=== PATIENT | male | born 1980 | race Hispanic/Latino ===

== ENCOUNTER 2025-04-28 01:45 | Inpatient (IN) | payer SELFPAY ==
[2025-04-28] VITALS (38 sets, daily range): BP systolic 108–167; BP diastolic 68–97; PULSE 83–114; RESP 11–37; TEMP 96.5–99.1; O2SAT 98–100
[~2025-04-28] VITALS: Ht 170.2 cm; Wt 78.0 kg
--- NOTE | 2025-04-28 08:55 | CONS ---
[facility] CARDIOLOGY CONSULTATION REPORT Cardiology consultation note dictated for Ricardo Thurston MD Primary auto service instructor: Cherelle Carranza MD Date Patient Seen: Apr 28, 2025 Time of Visit: 08:54 Requesting Physician: Kat Wilson MD Reason for Consultation: Pericardial effusion History of Present Illness: This is a 44-year-old male with with untreated SLE and Sjogren syndrome (Positive Anti-SS-AAb, negative SS-B), and a history of low C3, C4, positive ORI, positive anti Titus antibody on 01/27/2024 who presented to [facility] [place] with a 4-6 week onset of shortness of breath and bilateral lower extremity edema. He was found to be in acute on chronic congestive heart failure. 2D Echo on 04/26/2025 revealed and LVEF of 25% with severe global hypokinesis, severe pericardial effusion with respiratory variation consistent with early tamponade physiology with RA collapse noted. TSH on 04/24/2025 was 4.9uIU/ml. Troponin of 1013 and 1062. He was subsequently transferred to [facility] [place] for possible pericardial window. Past Medical History: As per HPI and summarized below Past Surgical History: None Family History: Social History: The patient lives with his . Habits: Home Meds: Current Meds: Review of Systems: CONST: No fever, fatigue, or weight changes. EYES: No recent vision problems. ENT: No congestion, ear pain, or sore throat. C/V: Admits to bilateral lower extremity edema RESP: Admits to mild shortness of breath GI: No abdominal pain, nausea, vomiting, constipation, or diarrhea. : No incontinence or dysuria. SKIN: No rash. NEURO: No headache, focal numbness or weakness, dizziness, or seizures. PSYCH: No depression or anxiety. HEME: No abnormal bruising or bleeding. LYMPH: No swollen glands. Physical Examination: GENERAL: No acute distress. HEAD: Normal with no signs of head trauma. EYES: PERRLA, EOMI, conjunctiva and sclera normal. ENT: Hearing grossly intact, normal oropharynx. NECK: Supple without JVD. There is no tenderness, lymphadenopathy, or masses. No thyromegaly. Normal carotid upstrokes without bruits. LUNGS: Decreased breath sounds to bases bilaterally. HEART: Normal rate and rhythm. Normal S1 and S2 without murmurs, gallop or rub. VASC: Peripheral pulses +2 bilaterally. ABD: Bowel sounds normal, soft, nontender, no masses, no organomegaly. No audible bruits. : Not examined LYMPH: No lymphadenopathy noted. EXT: Bilateral lower extremities with 1 to 2+ edema edema SKIN: No rashes or lesions noted. NEURO: Awake, alert, and oriented x3. No focal sensory or strength deficits noted. Vital Signs (last 8hr) Date Time Temp Pulse Resp B/P (MAP) Pulse Ox O2 Delivery O2 Flow Rate FiO2 04/28/25 07:47 99.1 87 19 141/93 100 Nasal Cannula 2.0 Laboratory: Diagnostics / Radiology: 2D echocardiogram on 04/26/2025 Conclusion LVEF is 25%. ESTIMATED GLOBAL STRAIN: -7% Severe global hypokinesis Respiratory variation noted on Doppler interrogation consistent with early tamponade physiology Severe pericardial effusion with respiratory variation. Findings are suggestive of early tamponade physiology. EXAM: Comprehensive 2D, Doppler, and color-flow Echocardiogram Rhythm: Tachycardia Indications: PERICARDIAL EFFUSION Left Ventricle Normal LV chamber size. Left ventricular systolic function is severely decreased. The posterior wall thickness is moderately increased. The septal thickness is moderately increased. Severe global hypokinesis Indeterminate diastolic function. LVEF is 25%. ESTIMATED GLOBAL STRAIN: -7% Right Ventricle Right ventricle is small. Mild diastolic RV collapse Atria The left atrium is normal. RA Collapse noted Aortic Valve Normal trileaflet aortic valve. No aortic stenosis. Mild aortic regurgitation. Mitral Valve Mitral valve is normal in structure. Tricuspid Valve Respiratory variation noted on Doppler interrogation consistent with early tamponade physiology Trace tricuspid regurgitation. Pulmonic Valve Pulmonic valve is not well visualized. Great Vessels The aortic root is normal in size. Normal IVC diameter with increased inspiratory collapse (intermediate estimate of RA pressure = 3 mm Hg). Pericardium Severe pericardial effusion with respiratory variation. Findings are suggestive of early tamponade physiology. LARGE bilateral pleural effusions noted. 2D Dimensions IVSd 1.5 cm M: 0.6-1.2 LVEF (Teich) 25.9 % PWd 1.4 cm M: 0.6 - 1.2 LVDd 5.8 cm M: 4.2 - 5.9 LVDs 5.1 cm M: 2.5 - 4.0 Left Atrium 4.0 cm M: 3.0 - 4.0 LVOT 2.2 cm (M/F) 1.5-2.5 IVC 1.6 cm M-Mode Dimensions TAPSE 2.1 (<1.7) Aortic Valve AoV Vmax 1.0 m/s Ao Peak GR 4.2 mmHg AoV VTI 0.2 m Ao Mean GR 2.5 mmHg Pulmonary Valve PV Peak Velocity 68.07 (50-150 cm/s) at 1009 CDT Impression and Plan: -Acute decompensated HFrEF, unclear etiology of failure, suspected dilated CM, POA -Large pericardial effusion, likely secondary to untreated SLE -NSTEMI, likely type 2, demand mismatch in setting of pericardial effusion vs myocardial injury from HF exacerbation -Bilateral pleural effusions, likely secondary to CHF vs serosal involvement of rheumatological condition, POA -Status post right thoracentesis on 04/27/2025 with 950 mL removed -Untreated autoimmune condition, patient reports SLE with hematologic, mucosal and immune manifestations, Secondary Sjogren's Syndrome - 2/2 to SLE- (Positive Anti - SSA Ab) - 01/27/2024 -Bilateral inguinal lymphadenopathy, unclear cause -History of illicit drug abuse -Anemia The patient is pending an evaluation by Dr. Lewis for pericardial window today. Addendum: The patient shows no signs of tamponade clinically. I will hold off on recommendations for a pericardial window until I review his 2D echocardi ogram. Interim does have very large pleural effusion might benefit from thoracentesis. See my dictated note. ATTESTATION BY PHYSICIAN I have seen and examined the patient. I reviewed the documentation, medical decision making, and treatment plan as noted by the mid-level provider above. I agree with the findings and plan of care. RICARDO THURSTON MD, [facility] Apr 28, 2025 08:54 RICARDO THURSTON MD Apr 28, 2025 09:47
[2025-04-28 09:13] LABS: NUCLEATED RED BLOOD CELLS 0.2 % (0.0-0.19); PLATELET COUNT (AUTO) 49 K/uL (130-400); RED BLOOD CELL COUNT(AUTO) 2.90 MIL/uL (4.50-6.20); RED CELL DISTRIBUTION WIDTH 19.0 % (11.0-15.5); WHITE BLOOD COUNT (AUTO) 8.4 K/uL (4.8-10.8)
--- NOTE | 2025-04-28 09:19 | CONS ---
[facility] Cardiology Consultation Note Cardiology consultation April 28 2025 Chief complaint: This is a 44-year-old male who was transferred from [facility] for evaluation of pleural and pericardial effusions. History of present illness: The patient states that for little over two weeks he has noted progressive shortness of breath associated with pleuritic type chest pain. Symptoms worsened and he went to the emergency room at [facility]. At that time a 2D echo was reported to show a large pericardial effusion with some respiratory variation of the mitral inflow. Troponin was greater than a 1000. Ejection fraction was reduced. His EKG shows sinus rhythm with some nonspecific T-wave inversions in the anterolateral leads. No acute ST elevations are noted. The patient currently remains short of breath but denies any chest pain at this time. He was COVID and influenza negative at [facility]. Past medical history: He relates that about two years ago he received a COVID vaccination and after that developed pustules on his lower extremities more so o n the right than left. He was told at [facility] that he may have underlying lupus. The lesions on the leg of not been biopsy. There was no history of rheumatic fever heart murmur previous myocardial infarction CVAs TIAs ulcers phlebitis thyroid disease anemia hypertension diabetes dyslipidemia kidney or liver disease. Review of systems: Denies syncope PND palpitations or significant edema. No history of recent fevers sweats or chills. No hemoptysis hematemesis or melena. Allergies: No known allergies Surgical history: No prior surgeries Social history: He is a nonsmoker nondrinker Family history: There was no family history of early atherosclerotic heart disease or sudden Medications: He takes no medications at home. Physical exam: Blood pressure is 152/95. Heart rate is in the 80s and regular. There was no elevation of the jugular venous pressure no bruits or murmurs appreciable. S1 normal S2 physiologically split. Abdomen is soft. Extremities show trace edema in the right leg. He has multiple healed scars on both lower extremities from prior pustular infection. A chest x-ray: Cardiomegaly is present. There was a very large left pleural effusion covering 2/3 of the left chest. Assessment: 1. Symptomatic large left pleural effusion 2. Reported large pericardial effusion but clinically no signs of tamponade at this time. 3. Elevated troponin with reduced ejection fraction on report of prior echo suggesting possible myocarditis. 4. History of pustules on the lower extremities now healed with scars. Plan: At this point believe the patient would benefit from thoracentesis. I have discussed this with CT surgery. In addition we will recommend a 2D echocardiogram today to determine whether or not the patient would benefit from pericardial window or pericardiocentesis. We will also have an opportunity to look at his LV function. I will review results when available and make further recommendations. In the interim a TSH level ORI rheumatoid factor and sed rates has been ordered. SANDHYA CARTAGENA MD Apr 28, 2025 09:19
[2025-04-28 09:23] LABS: INR 1.0 (0.85-1.15)
[2025-04-28] MEDS ORDERED: HYDR200T75 PO (09:54)
[2025-04-28] MEDS ORDERED: EMPA10TA PO (09:54)
[2025-04-28 09:57] LABS: ASPARTATE AMINOTRANSFERASE 49.0 U/L (10-37); CREATININE 1.2 mg/dL (0.5-1.3); GLOMERULAR FILTR. RATE CALC 76.0 mL/min (>90); GLUCOSE,RANDOM 90.0 mg/dL (70-105); SODIUM SERUM 138.0 mmol/L (136-145); TOTAL PROTEIN, SERUM 7.7 g/dL (6.0-8.3); UREA NITROGEN, BLOOD 32.0 mg/dL (7-18)
[2025-04-28] MEDS ORDERED: BENZ1LOZ81 MM (09:59)
[2025-04-28] MEDS ORDERED: SACU1TAB PO (09:59)
[2025-04-28] MEDS ORDERED: SPIR25TA6 PO (09:59)
[2025-04-28] MEDS ORDERED: SILV50CR31 TP (09:59)
[2025-04-28] MEDS ORDERED: PoTASSium chl 10% ELIXIR 20MEQ 20 MEQ/15 ML UDCUP PO PRN (11:00)
--- NOTE | 2025-04-28 11:11 | HP ---
[facility] Date of Service: Apr 28, 2025 Time of Service: 10:44 HISTORY OF PRESENT ILLNESS: [ ] This is a 44-year-old male was transfer from [facility] with Severe pericardial effusion early Tamponade physiology for further workup and treatment: s/p thoracentesis left sided with 950 ml on 04/28/25. Past medical history with untreated SLE and Sjogren syndrome (Positive Anti-SS-AAb, negative SS-B), and a history of low C3, C4, positive ORI, positive anti Titus antibody on 01/27/2024 who presented to [facility] with a 4-6 week onset of shortness of breath and bilateral lower extremity edema. [facility] workup revealed acute on chronic congestive heart failure. 2D Echo on 04/26/2025 revealed and LVEF of 25% with severe global hypokinesis, severe pericardial effusion with respiratory variation consistent with early tamponade physiology with RA collapse noted. REVIEW OF SYSTEMS CONSTITUTIONAL: Denies fevers, chills, or night sweats. No unintentional weight loss reported. NEUROLOGICAL: Denies headache, amaurosis fugax, motor weakness, sensory deficit, vertigo/spinning sensation, gait abnormalities, or tremors. ENT: No hearing loss, otalgia, otorrhea, rhinitis, rhinorrhea, hoarseness, or sore throat. CARDIOVASCULAR: Denies any exertional angina, dyspnea on exertion, orthopnea, paroxysmal nocturnal dyspnea, palpitations, life-threatening arrhythmias, claudication. PULMONARY: Denies any shortness of breath, cough, phlegm/sputum, hemoptysis, pleuritic chest pain. SLEEP: Denies morning headaches, daytime somnolence or napping. Denies difficulty falling asleep, staying asleep, waking from sleep. Denies knowledge of snoring. GASTROINTESTINAL: Denies any type of dysphagia to either liquids or solids. Denies nausea, vomiting, pyrosis, early satiety, abdominal pain, diarrhea, constipation, or changes in stool consistency or caliber. Denies coffee-ground emesis, hematemesis, hematochezia, or melanotic stools. GENITOURINARY: Denies frequency, urgency, nocturia, hematuria or incontinence (Storage/Irritative symptoms.) Low urinary stream, straining to void, urinary intermittency or hesitancy, splitting of the voiding stream, terminal dribbling. ENDOCRINOLOGIC: Denies polyuria, polydipsia, polyphagia or heat/cold intolerances. HEMATOLOGIC: Denies thrombophilia/previous clots, or coagulopathy/bleeding disorders. ONCOLOGIC: Denies personal history of malignancy. DERMATOLOGIC: Denies rashes or pruritus. PSYCHIATRIC: Denies any suicidal or homicidal ideation. Denies hallucinations. PAST MEDICAL HISTORY: [ ]Homeless, PAST SURGICAL HISTORY: [ ] PAST SOCIAL HISTORY: [ ]history Illicit drug use he denies any current use of illicit drug use, or smoking and ETOH , lives with FAMILY HISTORY: [ ] Coded Allergies: No Known Drug Allergies (Unverified Allergy, Unknown, 04/28/25) PHYSICAL EXAM GENERAL APPEARANCE: The patient is awake, alert, and oriented, in no acute cardiopulmonary distress. NEUROLOGICAL: Cranial nerves II-XII grossly intact. Motor is 5/5 in bilateral upper and lower extremities proximal to distal. No sensory deficits. HEENT: Face is symmetric. Pupils are equal and reactive. Extraocular movements are intact. NECK: Supple. No JVD. No thyromegaly. No submental, submandibular, pre- /postauricular, occipital or supraclavicular lymphadenopathy. CHEST: Normal chest expansion. No Telemetry. LUNGS: Absence of any rales, rhonchi or any wheezing. CARDIOVASCULAR: Regular. S1 and S2 normal. No appreciable rubs, murmurs or gallops. ABDOMEN: Soft, nontender, and nondistended. There is no rebound, voluntary guarding, or rigidity. : Deferred. No Henriquez. EXTREMITIES: Non-edematous and not cyanotic. No clubbing. Good capillary refi ll. SKIN: No skin breakdown. Vital Sign (Last 24 Hours) 04/28/25 07:47 Temp 99.1 Pulse 87 Resp 19 B/P (MAP) 141/93 Pulse Ox 100 O2 Delivery Nasal Cannula O2 Flow Rate 2.0 LABS: Laboratory: Test 04/28/25 08:50 Range/Units White Blood Count 8.4 4.8-10.8 K/uL Red Blood Count 2.90 L 4.50-6.20 MIL/uL Hemoglobin 8.5 L 14.0-18.0 g/dL Hematocrit 28.1 L 42-54 % Mean Corpuscular Volume 96.9 79-99 fL Mean Corpuscular Hemoglobin 29.3 27.0-33.0 pg Mean Corpuscular Hemoglobin Concent 30.2 L 32.0-36.0 g/dL Red Cell Distribution Width 19.0 H 11.0-15.5 % Platelet Count 49 L 130-400 K/uL Mean Platelet Volume 7.5-10.5 fL Nucleated Red Blood Cells 0.2 H 0.0-0.19 % Platelet Morphology Comment See comments Red Blood Cell Morphology See comments Erythrocyte Sedimentation Rate 61 H 0-15 MM/HR Prothrombin Time 10.6 9.6-11.6 SEC Prothromb Time International Ratio 1.00 0.85-1.15 Activated Partial Thromboplast Time 27.8 26.3-35.5 SEC Sodium Level 138 136-145 mmol/L Potassium Level 3.3 L 3.5-5.1 mmol/L Chloride Level 104 101-111 mmol/L Carbon Dioxide Level 28 21-32 mmol/L Blood Urea Nitrogen 32 H 7-18 mg/dL Creatinine 1.2 0.5-1.3 mg/dL Glomerular Filtration Rate Calc 76 >90 mL/min Random Glucose 90 70-105 mg/dL Total Calcium 7.6 L 8.5-10.1 mg/dL Magnesium Level 1.90 1.80-2.40 mg/dL Total Bilirubin 0.4 0.2-1.0 mg/dL Aspartate Amino Transf (AST/SGOT) 49 H 10-37 U/L Alanine Aminotransferase (ALT/SGPT) 16 12-78 U/L Alkaline Phosphatase 128 50-136 U/L Troponin I High Sensitivity 969 *H 4-75 ng/L B-Type Natriuretic Peptide 769 H 0-100 pg/mL Total Protein 7.7 6.0-8.3 g/dL Albumin 1.7 L 3.5-5.0 g/dL Thyroid Stimulating Hormone (TSH) 4.55 H 0.36-3.74 uIU/mL DIAGNOSTICS / RADIOLOGY: [ ] ASSESSMENT: acute resp failure with hypoxemia POA NSTEMI POA acute on Chronic Heart failure EF 25% severe pericardial effusion with resp variation evidence by Echo POA s/p thoracentesis removal 950 ml ( 04/27/25) suspecting early tamponade physiology POA Anasarca lower extremity POA acute on Chronic anemia secondary to Lupus POA Thrombocytopenia secondary to Lupus POA electrolytes derangement: hypokalemia debilitated physical deconditioning POA severe protein calorie malnutrition POA chronic problems: autoimmune SLE Low C3 C4 Positive ORI, Anti-Titus Ab- tested 01/25/24 and secondary Sjogren syndrome Positive Anti SS-AAb Negative SS-B (01/27/24) PLAN: [ ] Admit:ICU condition: guarded Status:Full code IVF: [employer] Manager Functional, CV and critical Team hematology Imaging CT chest , Echo will follow up results Oxygen supplement to keep O2 sats above 92%, aspiration precautions head of the bed at 45 at all times. Labs cbc, cmp, mag+ will monitor H/H and Platelets: transfuse to keep hgb above 7.0 and platelet above 40,0000; will monitor for acute bleeding. Replace electrolytes as needed as per protocol to keep potassium above 4.0 magnesium 2.0. Reconciliation [facility] medications pending to be reviewed by RN nurse. PRN: MEDICATIONS Tylenol 650 mg po every 4 hrs for fever zofran 4 mg IV every 6 hrs for n/v Hydralazine 5 mg IV every 4 hrs systolic pressure > 160 bowel regiment: lactulose 20 gm PO BID PRN constipation Supportive measures: DVT ppx, GI ppx all questions answered time spent: > 35 min Supervising MD: Dr.Ellis Byers c/d This document was generated in part using voice recognition software, occasional wrong word or sound alike substitutions may have occurred due to the inherent limitations of voice recognition software. Read the chart carefully and recognize using context, where the substitutions have occurred. Although every effort was made to edit the content, loader operator/ground leader and typing errors may occur ADVANCED CARE PLANNING 1. Which of the following were discussed? Hospice Care - Yes / No Therapeutic options - Yes / No Advance Directives - Yes / No Other discussions - 2. Discussed with who? 3. Voluntary nature of this service was explained to the patient? Yes / No 4. Amount of time spent - 5. Reviewed by Physician? (if this service was performed by NPP) Yes / No ATTESTATION BY PHYSICIAN I have seen and examined the patient. I reviewed the documentation, medical decision making, and treatment plan as noted by the mid-level provider above. I agree with the findings and plan of care. PAXTON REYNOSO MD, [facility] Apr 28, 2025 11:11
[2025-04-28] MEDS: BENZOCAINE/MENTH/CETYLPYRD CL 1 EACH LOZENGE MM PRN (11:27)
--- NOTE | 2025-04-28 11:31 | EKG ---
[facility] Test Date: 2025-04-28 Test Time: 11:32:09 Pat Name: TAYO MCGINNIS Department: 2CV Room: 211 1 Gender: M Dock Coordinator: NAA : 1980 Requested By: RICARDO CARTAGENA Order Number: [id number] Reading MD: Ricardo Cartagena Measurements Intervals [place] Rate: 80 P: 15 NJ: 142 QRS: -22 QRSD: 108 T: 197 QT: 422 QTc: 486 Interpretive Statements Normal sinus rhythm Incomplete right bundle branch block T wave abnormality, consider lateral ischemia Prolonged QT No previous ECG available for comparison Electronically Signed On 04-28-2025 18:06:51 CDT by Ricardo Cartagena Please click the below link to view image of tracing.
[2025-04-28 12:57] LABS: % IRON SATURATION 17.8 % (30-44); IRON, SERUM 37.0 mcg/dL (65-175)
[2025-04-28 13:18] LABS: HIV 1&2 ANTIBODY Non-Reactive (Negative)
--- NOTE | 2025-04-28 13:49 | HMCSR ---
APPROVED REPORT EXAM: Two-dimensional and M-mode echocardiogram with Doppler and color Doppler. INDICATION ICD: I31.3 Pericardial effusion 2D Dimensions RVDd3.7 cmLVEF(%)45.8 (>50%)LVED Vol(simp.)197.0 mL IVSd0.9 (0.7-1.1cm)FS(%)23 %LVES Vol(simp.)131.0 mL LVDd5.8 (3.8-5.6cm)LA (2D)3.5 (1.6-4.0cm)LVEF(%, simp.)33 % PWd0.8 (0.7-1.1cm)Ao Root(2D)4.0 (2.0-3.7cm)LA ESV INDEX (BP)40.29 mL/m2 LVDs4.5 (2.5-4.0cm)LVOT diam2.5 (1.8-2.4cm) Deformation Strain Apical 4-11.1 % Apical 2-7.4 % Apical 3-8.6 % Global Strain-9.1 % M-Mode Dimensions EPSS1.9 cm LA (MM)3.9 (1.6-4.0cm) Ao Root(MM)4.1 (2.0-3.7cm) Aortic Valve AoV Vmax1.3 m/Leon Peak GR7.0 mmHgLVOT Vmax1.1 m/s AoV VTI0.2 mAo Mean GR4.7 mmHgLVOT VTI0.21 m HOWIE (VMAX)4.05 cm2Al P1/2T395 msAVA (VTI) 4.9 cm2 Mitral Valve MV E Vmax48.6 cm/sDECEL Lhen090 ms MV A Vmax67.2 cm/sP 1/2 T31 ms E/A ratio0.7MVA (PHT)7.0 cm2 TDI E/E' Medial6.5E/E' Lateral5.1 Medial E' Peak V7.47 cm/sLateral E' Peak V9.50 cm/s Pulmonary Valve PV Vmax1.1 m/sPV VTI0.25 mPV Mean GR3.1 mmHg PV Peak GR4.6 mmHg Left Ventricle The left ventricle is severely dilated. Global strain of -9%. There is normal left ventricular wall t hickness. LVEF is 30-35%. The left ventricular diastolic function is normal. Right Ventricle The right ventricle is normal size. Early RV and RA collapse. Atria The left atrium is moderately dilated. The right atrium size is normal. Aortic Valve The aortic valve is normal in structure. Mild to moderate aortic regurgitation. There is no aortic va lvular stenosis. Mitral Valve The mitral valve is normal in structure. Mitral regurgitation is trace. There is no mitral valve sten osis. Tricuspid Valve The tricuspid valve is normal in structure. There is no tricuspid valve regurgitation noted. Pulmonic Valve The pulmonary valve is normal in structure. There is trivial pulmonic valvular regurgitation. Great Vessels The aortic root is normal in size. The IVC is normal in size and collapses >50% with inspiration. Pericardium Large circumfrential pericardial effusion. Respiratory variation noted on the mitral inflow doppler. There is large pleural effusion. Conclusion The left ventricle is severely dilated. LVEF is 30-35%. Global strain of -9%. Early RV and RA collapse. Mild to moderate aortic regurgitation. Mitral regurgitation is trace. Large circumfrential pericardial effusion. Respiratory variation noted on the mitral inflow doppler.
[2025-04-28] MEDS ORDERED: COMPOUND IV MISC 1 EACH IVSOLN MISC PRN (15:00)
[2025-04-28 15:46] LABS: CREATININE 1.0 mg/dL (0.5-1.3); GLOMERULAR FILTR. RATE CALC 95.0 mL/min (>90); GLUCOSE,RANDOM 90.0 mg/dL (70-105); SODIUM SERUM 138.0 mmol/L (136-145); UREA NITROGEN, BLOOD 28.0 mg/dL (7-18)
--- NOTE | 2025-04-28 15:49 | NUR ---
CT ON HOLD, PT TRANSPORTED TO SURGERY.
--- NOTE | 2025-04-28 16:35 | NUR ---
OR staff at bedside for transport to OR for scheduled pericardial window
[2025-04-28] MEDS ORDERED: LIDOCAINE PF 100MG/5ML (2%) SYRINGE 5ML ONE (16:43)
[2025-04-28] MEDS ORDERED: SUCCINYLCHOLINE CHLORIDE 20 MG/ML 10 ML VIAL ONE (16:44)
[2025-04-28] MEDS ORDERED: GLYCOPYRROLATE 0.2 MG/ML 5 ML VIAL ONE (16:44)
[2025-04-28] MEDS ORDERED: ETOMIDATE 20MG VIAL ONE (16:45)
[2025-04-28] MEDS ORDERED: NEOSTIGMINE METHYLSULFATE 1MG/ML IV ONE (16:45)
[2025-04-28] MEDS ORDERED: NOREPINEPHRINE BITARTRATE 1 MG/1 ML ML IV ONE (16:46)
[2025-04-28 19:02] LABS: IMMATURE GRANULOCYTE ABSOLUTE 0.07 K/uL (0-1); NUCLEATED RED BLOOD CELLS 0.0 % (0.0-0.19); PLATELET COUNT (AUTO) 66 K/uL (130-400); RED BLOOD CELL COUNT(AUTO) 2.82 MIL/uL (4.50-6.20); RED CELL DISTRIBUTION WIDTH 18.9 % (11.0-15.5); WHITE BLOOD COUNT (AUTO) 8.7 K/uL (4.8-10.8)
[2025-04-28 19:51] LABS: LIPASE,BODY FLUID 9 U/L
[2025-04-28] MEDS: MAGNESIUM 2GM PREMIX 50ML 50 ML IV PRN (19:54)
[2025-04-28 19:56] LABS: GLUCOSE,BODY FLUID 95 mg/dL (1-40); TOTAL PROTEIN,BODY FLUID 5.5 g/dL
[2025-04-28 19:58] LABS: BODY FLUID RBC 2359 /cu. mm.; BODY FLUID WBC 121 /cu. mm.
[2025-04-28 20:06] LABS: APPEARANCE BODY FLUID SLIGHTLY CLOUDY (CLEAR); COLOR,BODY FLUID YELLOW (LT YELLOW); SPECIMENTYPE,BODY FLUID PERICARDIAL; TOTAL VOLUME,BODY FLUID 45 mL
[2025-04-28 20:08] LABS: PH, BODY FLUID 7.0
--- NOTE | 2025-04-28 20:22 | HMCIMG ---
CR CHEST 1 VIEW Clinical Details: Preoperative evaluation. Technique: A single view chest radiograph was obtained. Findings: Lungs: There is compression atelectasis of the left lung due to mass effect. No mass, infiltrate, or acute pulmonary abnormality is noted in the remaining lung parenchyma. Pleural Spaces: Gross left pleural effusion is observed. There is a small right pleural effusion. Mediastinum: The cardiomediastinal silhouette shows cardiomegaly. Bones: No acute osseous abnormality is seen. Impression: * Cardiomegaly. * Gross left pleural effusion with compression atelectasis of the left lung. * Small right pleural effusion. * No acute pulmonary parenchymal abnormality detected. /Johnson
--- NOTE | 2025-04-28 20:48 | CONS ---
[facility] CONSULTATION NOTE Date Patient Seen: Apr 28, 2025 Time of Visit: 13:00 Supervising Physician: Dillon Maldonado MD Reason for Consultation: [facility] Primary Care Physician: Tramaine Wilson MD Outpatient Specialists: [ ] Inpatient Consults: DR Matthew, DR Maldonado, DR [place], DR Carranza PROBLEM LIST: Large pericardial effusion with early signs of tamponade, POA HFrEF w/ EF 30-35% POA Suspected lupus Suspected Sjogren's disease NSTEMI POA s/p thoracentesis removal 950 ml ( 04/27/25) Anasarca lower extremity POA acute on Chronic anemia Thrombocytopenia Hypokalemia debilitated physical deconditioning POA severe protein calorie malnutrition POA Poor dentition HPI: This is a 44-year-old male who presented from [facility] for evaluation by cv surgery of pericardial circumferential effusion. We were consulted for critical care management. Per patient he has started with some shortness of breaths with progression and chest pain with the breathing. He then decided to follow up at emergency room at [facility]. 2D echo showed then a large pericardial effusion. And reduced ejection fraction. He reports he received covid vaccine 2 years ago, Pt also reports he started with lesions to lower extremities. At 1 of his visits to [facility] autoimmune workup was done and who has positive for ORI C3 and C4. Patient was told that he likely had lupus which has been untreated possible Sjogren's disease. On assessment patient is awake alert and oriented x3. He has poor dentition. Unkept. He currently denies any chest pain palpitations or shortness for breath. He is hemodynamically stable off pressors. Appears to be comfortable i n no apparent distress. , PAST MEDICAL HX: see above PAST SURGICAL HX: noncontributory SOCIAL HISTORY: No tobacco, ETOH, or illicit drug use Coded Allergies: No Known Drug Allergies (Unverified Allergy, Unknown, 04/28/25) REVIEW OF SYSTEMS: 12 point ROS reviewed with patient. Pertinent positives mentioned above. Otherwise negative. PHYSICAL EXAM: GENERAL: alert, weak, awake oriented x 3 HEENT: EOMI, Sclera non icteric, moist mucosa poor dentition NECK: Supple, no JVD, trachea midline LUNGS: Clear breath sounds bilaterally. No wheezes HEART: Regular rate and rhythm. Normal S1 and S2, without murmurs ABD: Abdomen soft, nontender. Bowel sounds present EXT: No clubbing cyanosis or edema NEURO: Alert and oriented to person, follows commands Vital Signs (last 8hr) Date Time Temp Pulse Resp B/P (MAP) Pulse Ox O2 Delivery O2 Flow Rate FiO2 04/28/25 15:26 98 Nasal Cannula* 2 28 04/28/25 14:39 97.9 84 17 128/81 100 Nasal Cannula 2.0 04/28/25 12:39 84 17 128/81 100 Nasal Cannula 2.0 04/28/25 12:35 97.9 83 21 135/86 100 Nasal Cannula 2.0 LABS: Hematology Labs: Test 04/28/25 18:51 04/28/25 08:50 Range/Units White Blood Count 8.7 4.8-10.8 K/uL Red Blood Count 2.82 L 4.50-6.20 MIL/uL Hemoglobin 8.2 L 14.0-18.0 g/dL Hematocrit 27.9 L 42-54 % Mean Corpuscular Volume 98.9 79-99 fL Mean Corpuscular Hemoglobin 29.1 27.0-33.0 pg Mean Corpuscular Hemoglobin Concent 29.4 L 32.0-36.0 g/dL Red Cell Distribution Width 18.9 H 11.0-15.5 % Platelet Count 66 #L 130-400 K/uL Mean Platelet Volume 10.9 H 7.5-10.5 fL Immature Granulocyte % (Auto) 0.8 0-1 % Neutrophils (%) (Auto) 88.0 H 40.0-77.0 % Lymphocytes (%) (Auto) 8.6 L 21.0-51.0 % Monocytes (%) (Auto) 2.4 L 3.0-13.0 % Eosinophils (%) (Auto) 0.1 0.0-8.0 % Basophils (%) (Auto) 0.1 0.0-5.0 % Neutrophils # (Auto) 7.7 1.8-7.7 K/uL Lymphocytes # (Auto) 0.8 L 1.0-4.8 K/uL Monocytes # (Auto) 0.2 0.1-1.0 K/uL Eosinophils # (Auto) 0.01 0.00-0.70 K/uL Basophils # (Auto) 0.01 0.00-0.20 K/uL Absolute Immature Granulocyte (auto 0.07 0-1 K/uL Nucleated Red Blood Cells 0.0 0.0-0.19 % White Cell Morphology Comment See comments Platelet Morphology Comment See comments Red Blood Cell Morphology See comments Erythrocyte Sedimentation Rate 61 H 0-15 MM/HR Chemistry Labs: Test 04/28/25 15:02 04/28/25 12:00 04/28/25 08:50 Range/Units Sodium Level 138 136-145 mmol/L Potassium Level 3.3 L 3.5-5.1 mmol/L Chloride Level 104 101-111 mmol/L Carbon Dioxide Level 29 21-32 mmol/L Blood Urea Nitrogen 28 H 7-18 mg/dL Creatinine 1.0 0.5-1.3 mg/dL Glomerular Filtration Rate Calc 95 >90 mL/min Random Glucose 90 70-105 mg/dL Total Calcium 7.4 L 8.5-10.1 mg/dL Magnesium Level 1.70 L 1.80-2.40 mg/dL Iron Level 37 L 65-175 mcg/dL Total Iron Binding Capacity 207 L 250-450 mcg/dL Percent Iron Saturation 17.8 L 30-44 % Troponin I High Sensitivity 817 *H 4-75 ng/L Total Bilirubin 0.4 0.2-1.0 mg/dL Aspartate Amino Transf (AST/SGOT) 49 H 10-37 U/L Alanine Aminotransferase (ALT/SGPT) 16 12-78 U/L Alkaline Phosphatase 128 50-136 U/L B-Type Natriuretic Peptide 769 H 0-100 pg/mL Total Protein 7.7 6.0-8.3 g/dL Albumin 1.7 L 3.5-5.0 g/dL Procalcitonin 0.15 0.05-0.5 ng/mL Thyroid Stimulating Hormone (TSH) 4.55 H 0.36-3.74 uIU/mL Coagulation Labs: Test 04/28/25 08:50 Range/Units Prothrombin Time 10.6 9.6-11.6 SEC Prothromb Time International Ratio 1.00 0.85-1.15 Activated Partial Thromboplast Time 27.8 26.3-35.5 SEC DIAGNOSTICS / RADIOLOGY RESULTS: [ [facility] [address] [place] [address] [id number] IMAGING REPORT Signed PATIENT: TAYO VENTURA MR#: [id number] : 1980 SEX: M AGE: 44 LOCATION: 2CV ORDER 0 [facility] REPORT#: [id number] SERVICE 7 REASON: pericardial effusion ORDERING PHYSICIAN: DANIEL MATTHEW MD PROCEDURE: ECHO CMP - ECHO 2-D COMPLETE APPROVED REPORT EXAM: Two-dimensional and M-mode echocardiogram with Doppler and color Doppler. INDICATION ICD: I31.3 Pericardial effusion 2D Dimensions RVDd 3.7 cm LVEF(%) 45.8 (>50%) LVED Vol(simp.) 197.0 mL IVSd 0.9 (0.7-1.1cm) FS(%) 23 % LVES Vol(simp.) 131.0 mL LVDd 5.8 (3.8-5.6cm) LA (2D) 3.5 (1.6-4.0cm) LVEF(%, simp.) 33 % PWd 0.8 (0.7-1.1cm) Ao Root(2D) 4.0 (2.0-3.7cm) LA ESV INDEX (BP) 40.29 mL/m2 LVDs 4.5 (2.5-4.0cm) LVOT diam 2.5 (1.8-2.4cm) Deformation Strain Apical 4 -11.1 % Apical 2 -7.4 % Apical 3 -8.6 % Global Strain -9.1 % M-Mode Dimensions EPSS 1.9 cm LA (MM) 3.9 (1.6-4.0cm) Ao Root(MM) 4.1 (2.0-3.7cm) Aortic Valve AoV Vmax 1.3 m/s Ao Peak GR 7.0 mmHg LVOT Vmax 1.1 m/s AoV VTI 0.2 m Ao Mean GR 4.7 mmHg LVOT VTI 0.21 m HOWIE (VMAX) 4.05 cm2 Al P1/2T 395 ms HOWIE (VTI) 4.9 cm2 Mitral Valve MV E Vmax 48.6 cm/s DECEL Time 171 ms MV A Vmax 67.2 cm/s P 1/2 T 31 ms E/A ratio 0.7 MVA (PHT) 7.0 cm2 TDI E/E' Medial 6.5 E/E' Lateral 5.1 Medial E' Peak V 7.47 cm/s Lateral E' Peak V 9.50 cm/s Pulmonary Valve PV Vmax 1.1 m/s PV VTI 0.25 m PV Mean GR 3.1 mmHg PV Peak GR 4.6 mmHg Left Ventricle The left ventricle is severely dilated. Global strain of -9%. There is normal left ventricular wall thickness. LVEF is 30-35%. The left ventricular diastolic function is normal. Right Ventricle The right ventricle is normal size. Early RV and RA collapse. Atria The left atrium is moderately dilated. The right atrium size is normal. Aortic Valve The aortic valve is normal in structure. Mild to moderate aortic regurgitation. There is no aortic valvular stenosis. Mitral Valve The mitral valve is normal in structure. Mitral regurgitation is trace. There is no mitral valve stenosis. Tricuspid Valve The tricuspid valve is normal in structure. There is no tricuspid valve regurgitation noted. Pulmonic Valve The pulmonary valve is normal in structure. There is trivial pulmonic valvular regurgitation. Great Vessels The aortic root is normal in size. The IVC is normal in size and collapses >50% with inspiration. Pericardium Large circumfrential pericardial effusion. Respiratory variation noted on the mitral inflow doppler. There is large pleural effusion. Conclusion The left ventricle is severely dilated. LVEF is 30-35%. Global strain of -9%. Early RV and RA collapse. Mild to moderate aortic regurgitation. Mitral regurgitation is trace. Large circumfrential pericardial effusion. Respiratory variation noted on the mitral inflow doppler. DICTATED BY: SANDHYA CARTAGENA MD DATE: 04/28/25 1021 ELECTRONICALLY SIGNED BY: SANDHYA CARTAGENA MD DATE: 04/28/25 8635 ] PLAN Continue ICU care Follow CV surgery recommendations Follow cardiology recommendations Follow Hematology recommendations Maintain O2 sats above 92% No plans for left side thoracentesis at this time. Patient is in no respiratory distress. Monitor electrolytes and replace accordingly Cardiac monitoring autoimmune work up NEURO: Minimize central acting medications as possible. Fall Precautions. Well lighted room through the day and minimize interruptions through the night to prevent acute delirium. PULMONARY: Supplemental 02 as needed Titrate Fio2 to keep Spo2 > or = 90% DuoNebs and CPT as needed IS hourly while awake for pulmonary hygiene Out of bed to chair as tolerated CARDIOVASCULAR: Follow hemodynamics. Titrate vasopressor to keep MAP >65 or systolic blood pressure >95mmHg LINES: PIV GI & NUTRITION: Continue nutritional support Aspirations precautions Prokinetic agents and laxatives as needed KIDNEYS & ELECTROLYTES: Strict monitoring of intake and output Daily weights Avoid nephrotoxic agents Monitor electrolytes and replace as needed Goal urine output of 30mL/hr or 0.5mL/kg/hr Urine output: [ ] Fluid Balance: [ ] ENDOCRINE: Maintain blood glucose between 100-180 at all times. Insulin sliding scale for blood glucose management INFECTIOUS DISEASE: Trend temperature. Doan-culture if febrile. Micro: [ ] Antibiotics: HEMATOLOGY & COAGULATION: Monitor H&H. Keep Hgb > 7 Transfuse 1 unit of PRBC for Hgb < 7 Transfuse 1 pack of platelets of platelets < 20, 000 Watch for any signs and symptoms of bleeding SKIN: Pressure ulcer prevention per facility protocol Rehab: PT/OT Prophylaxis: GI: [famotidine ] DVT: [ scd] Code Status: Full Resuscitation Disposition: [ TBD] Other: Total patient care time exceeds 35 minutes excluding all procedures. Case was discussed and seen with my supervising physician. The above plan was formulated and agreed upon. ATTESTATION BY PHYSICIAN I have evaluated the patient chart, medical records, and spoke with appropriate staff. I reviewed the documentation, medical decision making, and treatment plan as noted by the mid-level provider above. I agree with the findings and plan of care. Dillon Maldonado MD, [facility] Apr 28, 2025 20:48
[2025-04-28 21:06] LABS: BF LYMPHOCYTE 26 %; BF MACROPHAGE 11; BF MESOTHELIAL 11 %; BF NEUTROPHIL 52.0 %; BF TOTAL CELLS COUNTED 100
--- NOTE | 2025-04-28 22:56 | CONS ---
JAYDEN DIAMOND MD 04/28/25 1825: CONSULT REFERRING PHYSICIAN: DR ANGELES MATTA REASON FOR CONSULT: THROMBOCYTOPENIA, ANEMIA HISTORY HPI: 44 year old male patient with past medical history of SLE, Sjogren was transferred from [facility] to [facility] with diagnosis of Pericardial effusion and bilateral large pleural effusions . Rt side thoracentesis was done at [facility] . As per the patient he was diagnosed with SLE in December 2023 and was not taking any medications for the same . Patient presented to [place] with complaints of chest pain , generalized swelling and shortness of breath .Hematology was consulted with anemia and t hrombocytopenia . Patient is evaluated at the bedside .He reports overall improvement in presenting symptoms however he continues to experience generalized swelling. he denies chest pain this time. Labs remarkable for anemia hemoglobin 8.5, thrombocytopenia platelets 27029, elevated troponin of 817, elevated AST 49 iron 37, TSAT 17.8 GFR 9 0 and BUN 28. Echocardiogram reveals severely dilated left ventricle with an ejection fraction of 30-35%, early right ventricular collapse and a large circumferential pericardial effusion consistent with early cardiac tamponade physiology. PMH: SLE Sjogren's syndrome Anemia Thrombocytopenia PSH: Noncontributory SH: Patient denies alcohol, tobacco smoking, polysubstance abuse FH: Noncontributory ALLERGIES: Coded Allergies: No Known Drug Allergies (Unverified Allergy, Unknown, 04/28/25) CURRENT MEDS: Current Medications Medications (Trade) Dose Ordered Sig/Brittany Route PRN Reason Start Time Stop Time Status Last Admin Magnesium Sulfate 50 ml @ 0 mls/hr PROTOCOL PRN IV low mag level 04/28/25 11:00 05/28/25 10:59 04/28/25 19:54 Potassium Chloride 100 ml @ 100 mls/hr AD PRN IV POTASSIUM PROTOCOL 04/28/25 11:00 05/28/25 10:59 Potassium Chloride (KCl 10% Elixir 20meq/15ml) 20 meq AD PRN PO POTASSIUM PROTOCOL 04/28/25 11:00 05/28/25 10:59 Potassium Chloride (K-Dur/Klor-Con 20meq) 20 meq AD PRN PO POTASSIUM PROTOCOL 04/28/25 11:00 05/28/25 10:59 Potassium Chloride 100 ml @ 50 mls/hr AD PRN IV POTASSIUM PROTOCOL 04/28/25 11:00 05/28/25 10:59 04/28/25 19:54 Benzocaine (Cepacol Sore Throat Lozenge) 1 each Q4H PRN MM SORE THROAT 04/28/25 11:00 05/28/25 10:59 04/28/25 11:27 Dexamethasone Sodium Phosphate 40 mg/Sodium Chloride 50 ml @ 100 mls/hr Q24H IV 04/28/25 15:00 05/28/25 14:59 04/28/25 15:21 Famotidine (Pepcid 20mg Vial) 20 mg DAILY IV 04/29/25 09:00 05/29/25 08:59 REVIEW OF SYSTEMS CONSTITUTIONAL: FEVER; No SWEATS; CHILLS; No WEIGHT LOSS HEENT: No JAUNDICE, No SORE THROAT, No SINUS PRESSURE, No VISION CHANGES RESPIRATORY: COUGH, CHEST PAIN, SHORTNESS OF BREATH; No HEMOPTYSIS CARDIOVASCULAR: No PALPATIONS; DYSPNEA ON EXERTION; No SYNCOPE GASTROINTESTINAL: No NAUSEA, No VOMITING, No DIARRHEA, No DYSPHAGIA, No CONSTIPATION, No ABDOMINAL PAIN, No HEMATEMESIS, No HEMATOCHEZIA, No MELENA GENITOURINARY: No DYSURIA, No HEMATURIA HEMATOLOGIC/LYMPHATIC: No EASY BRUISING; CERVICAL ADENOPATHY; No AXILLARY ADENOPATHY; INGUINAL ADENOPATHY MUSCULOSKELETAL: No BONE PAIN, No MASS, No NORMAL RANGE OF MOTION NEUROLOGICAL: WEAKNESS-EXTREMETIES; No DIPLOPIA, No NUMBNESS, No TINGLING PHYSICAL EXAM VITALS: Vital Signs Date Time Temp Pulse Resp B/P (MAP) Pulse Ox O2 Delivery O2 Flow Rate FiO2 04/28/25 15:26 98 Nasal Cannula* 2 28 04/28/25 14:39 97.9 84 17 128/81 GENERAL: ALERT, ORIENTED; No APPEARS-NO ACUTE DISTRESS (MILD DISTRESS) EYES: SCLERAE ANICTERIC, PUPILS EQUAL/REACTIVE ENT/NECK: ORAL MUCOSA W/O LESIONS, OROPHARYNX IS CLEAR; No NECK SUPPLE W/O MASSES (BILATERAL CERVICAL LYMPHADENOPATHY +, LN FIRM CONSISTENCY) RESPIRATORY: No LUNGS CLEAR-AUSC/PERCUS (BREATH SOUNDS DIMINISHED ON LEFT SIDE) CARDIOVASCULAR: REGULAR RATE, REGULAR RHYTHM (DISTANT HEART SOUNDS, PERICARDIAL RUB) GASTROINTESTINAL: ABDOMEN IS SOFT, DISTENDED, PALPABLE MASSES (SPLEEN TIP PALPABLE) HEMATOLOGY/LYMPHATIC: CERVICAL ADENOPATHY; No SUPRACLAVICULR ADENOPATHY, No AXILLARY ADENOPATHY; INGUINAL ADENOPATHY MUSCULOSKELETAL: No CYANOSIS-EXTREMETIES; CLUBBING, EDEMA SKIN/BREASTS: RASH (HEALED ARTERIAL ULCER SCARS BILATERAL LOWER EXTREMITY) NEUROLOGICAL: GROSSLY INTACT IMPRESSION Systemic lupus erythematosus , acute flare with multiorgan involvement Acute large pericardial effusion Acute bilateral pleural effusion 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 Peripheral blood smear showing microcytic hypochromic red blood cells with a rouleaux phenomenon. Tear drop cells present, few schistocytes and spherocytes noted. White blood cells are increased in number you hypersegmented neutrophils noted. Platelet count is decreased however average platelet manual count between 8o k to 100k. Large platelets present. 2. This patient will benefit from IV iron, folic acid 1 mg daily and vitamin B12 1000 mcg daily. 3. Manual platelet count around 100 K-no platelet transfusion warranted at this time. We will recommend 1 unit of single donor platelet transfusion if necessary. 4. Direct Luis test positive. Patient with SLE flare with multi-system involvement. We will start the patient on high-dose dexamethasone IV 40 mg daily. 5. Generalized lymphadenopathy noted. We will request CT of abdomen and pelvis. Pending CT chest results. 6. Patient noted with bilateral lower extremity arterial ulcers which might indicate vasculitic component of underlying autoimmune disease. 7. Increased globulin fraction. Rouleaux formation noted in peripheral blood smear-we will request SPEP UPEP and free kappa lambda light chains. JACKIE HAMMER MD 04/29/250: PLAN I attest that I was physically present to evaluate the patient and I reviewed and discussed the case with the Resident and agree with the Resident's findings and plans of care as documented above with modifications. Case discussed with resident on the date stated at the beginning of note. Patient was first seen and evaluated by me during this hospitalization. JAYDEN DIAMOND MD Apr 28, 2025 22:56 JACKIE HAMMER MD Apr 29, 2025 19:20
[2025-04-29] VITALS (56 sets, daily range): BP systolic 99–136; BP diastolic 66–90; PULSE 86–107; RESP 12–24; TEMP 98–99.1; O2SAT 96–97
[2025-04-29 04:41] LABS: IMMATURE GRANULOCYTE ABSOLUTE 0.08 K/uL (0-1); NUCLEATED RED BLOOD CELLS 0.0 % (0.0-0.19); PLATELET COUNT (AUTO) 63 K/uL (130-400); RED BLOOD CELL COUNT(AUTO) 3.03 MIL/uL (4.50-6.20); RED CELL DISTRIBUTION WIDTH 18.8 % (11.0-15.5); WHITE BLOOD COUNT (AUTO) 11.9 K/uL (4.8-10.8)
[2025-04-29 04:57] LABS: ASPARTATE AMINOTRANSFERASE 39.0 U/L (10-37); CREATININE 1.2 mg/dL (0.5-1.3); GLOMERULAR FILTR. RATE CALC 76.0 mL/min (>90); GLUCOSE,RANDOM 140.0 mg/dL (70-105); SODIUM SERUM 137.0 mmol/L (136-145); TOTAL PROTEIN, SERUM 6.7 g/dL (6.0-8.3); UREA NITROGEN, BLOOD 33.0 mg/dL (7-18)
--- NOTE | 2025-04-29 06:30 | HMCIMG ---
CR CHEST 1 VIEW Clinical Details: Hypoxic respiratory failure. Technique: A single-view chest radiograph was obtained. Findings: Lungs: There is compression atelectasis of the left lung due to mass effect. Mild infiltration in right lower lobe. Pleural Spaces: Moderate left pleural effusion is observed. There is a small right pleural effusion. Mediastinum: The cardiomediastinal silhouette shows cardiomegaly. Bones: No acute osseous abnormality is seen. Impression: * Cardiomegaly. * Moderate left pleural effusion with compression atelectasis of the left lung. * Small right pleural effusion. * Compared with prior CR, the left pleural effusion is mildly reduced. /[place]
--- NOTE | 2025-04-29 07:30 | PN ---
[facility] Cardiology Progress Note CARDIOLOGY PROGRESS NOTE APRIL 29, 2025 1. Symptomatic large left pleural effusion 2. Large left pericardial effusion with pre tamponade physiology on echo status post pericardial window 3. Elevated troponin with reduced ejection fraction on report of prior echo suggesting possible myocarditis. 4. History of pustules on the lower extremities now healed with scars. 5. Thrombocytopenia The patient yesterday underwent a pericardial window. The patient's blood pressure yesterday was stable however his echo showed a large pericardial effusion with pre tamponade physiology. Ejection fraction estimated to be 30- 35%. Troponins are dropping from a 1000 it was ago to 969 here and subsequently 817. As noted EKG showed no acute ST changes and the patient denied any chest pain. He is suspected to have underlying myocarditis. Blood pressure today is 120 systolic heart rate is in the 90s. White count 11.9 hemoglobin 8.9 platelet count [id number]. Chest x-ray this morning showed improvement in his large left pleural effusion. He has passive congestive changes in the lung rasheed. He is currently off oxygen and denies any shortness of breath but x-ray shows passive congestive changes and he does have some peripheral edema. Given his low ejection fraction we will start low-dose beta seth and lisinopril at bedtime and monitor his blood pressure. SANDHYA CARTAGENA MD Apr 29, 2025 07:30
[2025-04-29] MEDS: FAMOTIDINE 20MG VIAL IV SCH (08:40)
--- NOTE | 2025-04-29 09:36 | PN ---
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 BLE ulcers Poor dentition INTERVAL HISTORY: Pt is awake alert and oriented x3. No major overnight events. Pt is s/p pericardial window overnight there was 500ml from pericardial drain. He is hemodynamically stable. Not requiring any pressors, He is at RA in no Resp distress. we will continue to follow CV surgery recommendations. Pt continues on dexamethasone 40 mg Q 24 hours IV per rehanger. REVIEW OF SYSTEMS: 12 point ROS reviewed with patient. Pertinent positives mentioned above. Ot herwise negative. PHYSICAL EXAM: GENERAL: alert, weak, awake oriented x 3 HEENT: EOMI, Sclera non icteric, moist mucosa poor dentition NECK: Supple, no JVD, trachea midline LUNGS: Clear breath sounds bilaterally. No wheezes HEART: Regular rate and rhythm. Normal S1 and S2, without murmurs , pericardial window drained ABD: Abdomen soft, nontender. Bowel sounds present EXT: No clubbing cyanosis or edema NEURO: Alert and oriented to person, follows commands Vital Signs (last 8hr) Date Time Temp Pulse Resp B/P (MAP) Pulse Ox O2 Delivery O2 Flow Rate FiO2 04/29/25 08:30 100 20 130/74 (92) 97 111/79 (90) 04/29/25 08:15 99 20 118/69 (85) 97 106/75 (85) 04/29/25 08:00 98.1 Room Air 21 04/29/25 08:00 96 Room Air* 0 21 04/29/25 08:00 99 20 130/76 (94) 96 110/83 (92) 04/29/25 07:45 94 20 128/76 (93) 98 117/83 (94) 04/29/25 07:30 90 20 123/73 (90) 97 110/81 (91) 04/29/25 07:15 91 20 121/72 (88) 98 109/78 (88) 04/29/25 07:00 92 15 123/73 (90) 96 103/73 (83) 04/29/25 06:45 93 13 110/70 (83) 98 105/75 (85) 04/29/25 06:30 92 14 115/69 (84) 97 101/76 (84) 04/29/25 06:15 93 18 124/71 (88) 97 102/76 (85) 04/29/25 06:00 94 19 119/73 (88) 97 21 99/75 (83) 04/29/25 05:45 95 21 119/73 (88) 98 102/68 (79) 04/29/25 05:30 98 22 130/76 (94) 97 114/79 (91) 04/29/25 05:15 98 24 131/77 (95) 98 109/77 (88) 04/29/25 05:00 95 22 119/73 (88) 97 21 107/76 (86) 04/29/25 04:45 95 20 120/75 (90) 96 106/78 (87) 04/29/25 04:30 94 20 122/76 (91) 97 111/80 (90) 04/29/25 04:15 97 19 126/76 (93) 99 112/78 (89) 04/29/25 04:00 99.1 97 20 119/74 (89) 96 21 111/79 (90) 04/29/25 04:00 99.1 Room Air 21 04/29/25 04:00 96 Room Air* 0 21 04/29/25 03:45 97 19 122/75 (91) 97 112/79 (90) 04/29/25 03:30 99 18 127/76 (93) 97 116/87 (97) 04/29/25 03:15 102 18 129/76 (93) 99 113/84 (94) 04/29/25 03:00 99 19 132/80 (97) 96 21 121/82 (95) 04/29/25 02:45 101 20 122/73 (89) 98 110/84 (93) 04/29/25 02:30 98 18 122/73 (89) 98 114/83 (93) 04/29/25 02:15 99 19 128/78 (95) 97 116/90 (99) 04/29/25 02:00 100 17 133/78 (96) 97 21 117/79 (92) 04/29/25 01:45 103 16 134/78 (96) 98 118/82 (94) LABS: Hematology Labs: Test 04/29/25 04:22 04/28/25 18:51 04/28/25 08:50 Range/Units White Blood Count 11.9 #H 4.8-10.8 K/uL Red Blood Count 3.03 L 4.50-6.20 MIL/uL Hemoglobin 8.9 L 14.0-18.0 g/dL Hematocrit 29.7 L 42-54 % Mean Corpuscular Volume 98.0 79-99 fL Mean Corpuscular Hemoglobin 29.4 27.0-33.0 pg Mean Corpuscular Hemoglobin Concent 30.0 L 32.0-36.0 g/dL Red Cell Distribution Width 18.8 H 11.0-15.5 % Platelet Count 63 L 130-400 K/uL Mean Platelet Volume 11.1 H 7.5-10.5 fL Immature Granulocyte % (Auto) 0.7 0-1 % Neutrophils (%) (Auto) 83.0 H 40.0-77.0 % Lymphocytes (%) (Auto) 12.5 L 21.0-51.0 % Monocytes (%) (Auto) 3.7 3.0-13.0 % Eosinophils (%) (Auto) 0.0 0.0-8.0 % Basophils (%) (Auto) 0.1 0.0-5.0 % Neutrophils # (Auto) 9.8 H 1.8-7.7 K/uL Lymphocytes # (Auto) 1.5 1.0-4.8 K/uL Monocytes # (Auto) 0.4 0.1-1.0 K/uL Eosinophils # (Auto) 0.00 0.00-0.70 K/uL Basophils # (Auto) 0.01 0.00-0.20 K/uL Absolute Immature Granulocyte (auto 0.08 0-1 K/uL Nucleated Red Blood Cells 0.0 0.0-0.19 % White Cell Morphology Comment See comments Platelet Morphology Comment See comments Red Blood Cell Morphology See comments Erythrocyte Sedimentation Rate 61 H 0-15 MM/HR Chemistry Labs: Test 04/29/25 04:22 04/28/25 12:00 04/28/25 08:50 Range/Units Sodium Level 137 136-145 mmol/L Potassium Level 4.6 3.5-5.1 mmol/L Chloride Level 104 101-111 mmol/L Carbon Dioxide Level 26 21-32 mmol/L Blood Urea Nitrogen 33 H 7-18 mg/dL Creatinine 1.2 0.5-1.3 mg/dL Glomerular Filtration Rate Calc 76 >90 mL/min Random Glucose 140 #H 70-105 mg/dL Total Calcium 7.5 L 8.5-10.1 mg/dL Magnesium Level 2.30 1.80-2.40 mg/dL Total Bilirubin 0.3 # 0.2-1.0 mg/dL Aspartate Amino Transf (AST/SGOT) 39 H 10-37 U/L Alanine Aminotransferase (ALT/SGPT) 16 12-78 U/L Alkaline Phosphatase 105 50-136 U/L Total Protein 6.7 6.0-8.3 g/dL Albumin 1.4 L 3.5-5.0 g/dL Iron Level 37 L 65-175 mcg/dL Total Iron Binding Capacity 207 L 250-450 mcg/dL Percent Iron Saturation 17.8 L 30-44 % Troponin I High Sensitivity 817 *H 4-75 ng/L B-Type Natriuretic Peptide 769 H 0-100 pg/mL Procalcitonin 0.15 0.05-0.5 ng/mL Thyroid Stimulating Hormone (TSH) 4.55 H 0.36-3.74 uIU/mL Coagulation Labs: Test 04/28/25 08:50 Range/Units Prothrombin Time 10.6 9.6-11.6 SEC Prothromb Time International Ratio 1.00 0.85-1.15 Activated Partial Thromboplast Time 27.8 26.3-35.5 SEC DIAGNOSTICS / RADIOLOGY RESULTS: [ ][facility] [address] [address] IMAGING REPORT Signed PATIENT: TAYO VENTURA MR#: [id number] : 1980 SEX: M AGE: 44 LOCATION: 2CV ORDER [id number] STATUS: ADM IN REPORT#: [id number] SERVICE 1700 REASON: SLE flare up , splenomegaly , generalized lymphadenopathy ORDERING PHYSICIAN: JAYDEN DIAMOND MD PROCEDURE: ABD PEL WO - CT ABDOMEN/PELVIS W/O CONTRAST EXAM: CT Abdomen and Pelvis Without IV contrast CLINICAL HISTORY: SLE flare up , splenomegaly , generalized lymphadenopathy TECHNIQUE: Axial computed tomography images of the abdomen and pelvis without intravenous contrast. CONTRAST: No IV contrast. COMPARISON: None provided. FINDINGS: LUNG BASES: Bilateral moderate to gross pleural effusion with collapse of the lower lobes with minimal adjacent consolidation. Drainage tube noted on right side LIVER: Measures 17 cms with no focal lesion. GALLBLADDER AND BILE DUCTS: Not visualized. PANCREAS: Unremarkable. SPLEEN: Measures 12.8 cms with no focal lesions. ADRENAL GLANDS: Unremarkable. KIDNEYS, URETERS, AND BLADDER: The kidneys appear within normal limits. There is no hydronephrosis or hydroureter. No urinary calculi are seen. Perinephric fat stranding is evident bilaterally. STOMACH AND BOWEL: Unremarkable appearance of the stomach and bowel. No evidence of bowel obstruction. No evidence suggesting enteritis or colitis. APPENDIX: No evidence of acute appendicitis on CT examination. PERITONEUM: Moderate ascites. No free air. Diffuse abdominal wall edema evident. LYMPH NODES: No lymphadenopathy is evident. REPRODUCTIVE: Unremarkable as visualized. VASCULATURE: No evidence of abdominal aortic aneurysm. BONES: No aggressive appearing osseous lesion. No acute osseous pathology evident. 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 IMPRESSION: Moderate ascites Bilateral moderate to gross pleural effusion. Hepatosplenomegaly. 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 /[place] DICTATED BY: DEION LARSEN MD DATE: 04/29/252020 ELECTRONICALLY SIGNED BY: DEION LARSEN MD DATE: 04/29/252020 PLAN Continue ICU care Follow CV surgery recommendations Follow cardiology recommendations Follow Hematology recommendations follow pericardial drain output Maintain O2 sats above 92% start diuresing Lasix 20mg iv q 12h No plans for left side thoracentesis at this time. Patient is in no respiratory distress. Monitor electrolytes and replace accordingly Cardiac monitoring Decadron per hematology recs NEURO: Minimize central acting medications as possible. Fall Precautions. Well lighted room through the day and minimize interruptions through the night to prevent acute delirium. PULMONARY: Supplemental 02 as needed Titrate Fio2 to keep Spo2 > or = 90% DuoNebs and CPT as needed IS hourly while awake for pulmonary hygiene Out of bed to chair as tolerated CARDIOVASCULAR: Follow hemodynamics. Titrate vasopressor to keep MAP >65 or systolic blood pressure >95mmHg LINES: PIV GI & NUTRITION: Continue nutritional support Aspirations precautions Prokinetic agents and laxatives as needed KIDNEYS & ELECTROLYTES: Strict monitoring of intake and output Daily weights Avoid nephrotoxic agents Monitor electrolytes and replace as needed Goal urine output of 30mL/hr or 0.5mL/kg/hr Urine output: [ ] Fluid Balance: [ ] ENDOCRINE: Maintain blood glucose between 100-180 at all times. Insulin sliding scale for blood glucose management INFECTIOUS DISEASE: Trend temperature. Doan-culture if febrile. Micro: [ ] pericardial fluid- Antibiotics: none HEMATOLOGY & COAGULATION: Monitor H&H. Keep Hgb > 7 Transfuse 1 unit of PRBC for Hgb < 7 Transfuse 1 pack of platelets of platelets < 20, 000 Watch for any signs and symptoms of bleeding SKIN: Pressure ulcer prevention per facility protocol Rehab: PT/OT Prophylaxis: GI: [famotidine ] DVT: [ scd] Code Status: Full Resuscitation Disposition: [ TBD] Other: Total patient care time exceeds 35 minutes excluding all procedures. Case was discussed and seen with my supervising physician. The above plan was formulated and agreed upon. ATTESTATION BY PHYSICIAN I have evaluated the patient chart, medical records, and spoke with appropriate staff. I reviewed the documentation, medical decision making, and treatment plan as noted by the mid-level provider above. I agree with the findings and plan of care. Dillon Maldonado MD, NELLY J AGACN Apr 29, 2025 09:36
--- NOTE | 2025-04-29 09:41 | PN ---
[facility] PROGRESS NOTE Date of Service: Apr 29, 2025 Time of Service: 09:35 SUBJECTIVE: [ ] This is a 44-year-old male was transfer from [facility] with Severe pericardial effusion early Tamponade physiology for further workup and treatment: s/p thoracentesis left sided with 950 ml on 04/28/25. Past medical history with untreated SLE and Sjogren syndrome (Positive Anti-SS-AAb, negative SS-B), and a history of low C3, C4, positive ORI, positive anti Titus antibody on 01/27/2024 who presented to [facility] with a 4-6 week onset of shortness of breath and bilateral lower extremity edema. [facility] workup revealed acute on chronic congestive heart failure. 2D Echo on 04/26/2025 revealed and LVEF of 25% with severe global hypokinesis, severe pericardial effusion with respiratory variation consistent with early tamponade physiology with RA collapse noted. 04/29/25 patient was seen earlier patient lying in bed appears chronically ill continue to experience units generalized swelling however he denied chest pain at this time. Primary nurse reports no events overnight. Waiting for CV recommendations. REVIEW OF SYSTEMS CONSTITUTIONAL: Denies fevers, chills, or night sweats. No unintentional weight loss reported. NEUROLOGICAL: Denies headache, amaurosis fugax, motor weakness, sensory deficit, vertigo/spinning sensation, gait abnormalities, or tremors. ENT: No hearing loss, otalgia, otorrhea, rhinitis, rhinorrhea, hoarseness, or sore throat. CARDIOVASCULAR: Denies any exertional angina, dyspnea on exertion, orthopnea, paroxysmal nocturnal dyspnea, palpitations, life-threatening arrhythmias, claudication. PULMONARY: Denies any shortness of breath, cough, phlegm/sputum, hemoptysis, pleuritic chest pain. SLEEP: Denies morning headaches, daytime somnolence or napping. Denies difficulty falling asleep, staying asleep, waking from sleep. Denies knowledge of snoring. GASTROINTESTINAL: Denies any type of dysphagia to either liquids or solids. Denies nausea, vomiting, pyrosis, early satiety, abdominal pain, diarrhea, constipation, or changes in stool consistency or caliber. Denies coffee-ground emesis, hematemesis, hematochezia, or melanotic stools. GENITOURINARY: Denies frequency, urgency, nocturia, hematuria or incontinence (Storage/Irritative symptoms.) Low urinary stream, straining to void, urinary intermittency or hesitancy, splitting of the voiding stream, terminal dribbling. ENDOCRINOLOGIC: Denies polyuria, polydipsia, polyphagia or heat/cold intolerances. HEMATOLOGIC: Denies thrombophilia/previous clots, or coagulopathy/bleeding disorders. ONCOLOGIC: Denies personal history of malignancy. DERMATOLOGIC: Denies rashes or pruritus. PSYCHIATRIC: Denies any suicidal or homicidal ideation. Denies hallucinations. PHYSICAL EXAM GENERAL APPEARANCE: The patient is awake, alert, and oriented, in no acute cardiopulmonary distress. NEUROLOGICAL: Cranial nerves II-XII grossly intact. Motor is 5/5 in bilateral upper and lower extremities proximal to distal. No sensory deficits. HEENT: Face is symmetric. Pupils are equal and reactive. Extraocular movements are intact. NECK: Supple. No JVD. No thyromegaly. No submental, submandibular, pre- /postauricular, occipital or supraclavicular lymphadenopathy. CHEST: Normal chest expansion. No Telemetry. LUNGS: Absence of any rales, rhonchi or any wheezing. CARDIOVASCULAR: Regular. S1 and S2 normal. No appreciable rubs, murmurs or gallops. ABDOMEN: Soft, nontender, and nondistended. There is no rebound, voluntary guarding, or rigidity. : Deferred. No Hneriquez. EXTREMITIES: Non-edematous and not cyanotic. No clubbing. Good capillary refill. SKIN: No skin breakdown. Vital Signs (last 8hr) Date Time Temp Pulse Resp B/P (MAP) Pulse Ox O2 Delivery O2 Flow Rate FiO2 04/29/25 08:30 100 20 130/74 (92) 97 111/79 (90) 04/29/25 08:15 99 20 118/69 (85) 97 106/75 (85) 04/29/25 08:00 98.1 Room Air 21 04/29/25 08:00 96 Room Air* 0 21 04/29/25 08:00 99 20 130/76 (94) 96 110/83 (92) 04/29/25 07:45 94 20 128/76 (93) 98 117/83 (94) 04/29/25 07:30 90 20 123/73 (90) 97 110/81 (91) 04/29/25 07:15 91 20 121/72 (88) 98 109/78 (88) 04/29/25 07:00 92 15 123/73 (90) 96 103/73 (83) 04/29/25 06:45 93 13 110/70 (83) 98 105/75 (85) 04/29/25 06:30 92 14 115/69 (84) 97 101/76 (84) 04/29/25 06:15 93 18 124/71 (88) 97 102/76 (85) 04/29/25 06:00 94 19 119/73 (88) 97 21 99/75 (83) 04/29/25 05:45 95 21 119/73 (88) 98 102/68 (79) 04/29/25 05:30 98 22 130/76 (94) 97 114/79 (91) 04/29/25 05:15 98 24 131/77 (95) 98 109/77 (88) 04/29/25 05:00 95 22 119/73 (88) 97 21 107/76 (86) 04/29/25 04:45 95 20 120/75 (90) 96 106/78 (87) 04/29/25 04:30 94 20 122/76 (91) 97 111/80 (90) 04/29/25 04:15 97 19 126/76 (93) 99 112/78 (89) 04/29/25 04:00 99.1 97 20 119/74 (89) 96 21 111/79 (90) 04/29/25 04:00 99.1 Room Air 21 04/29/25 04:00 96 Room Air* 0 21 04/29/25 03:45 97 19 122/75 (91) 97 112/79 (90) 04/29/25 03:30 99 18 127/76 (93) 97 116/87 (97) 04/29/25 03:15 102 18 129/76 (93) 99 113/84 (94) 04/29/25 03:00 99 19 132/80 (97) 96 21 121/82 (95) 04/29/25 02:45 101 20 122/73 (89) 98 110/84 (93) 04/29/25 02:30 98 18 122/73 (89) 98 114/83 (93) 04/29/25 02:15 99 19 128/78 (95) 97 116/90 (99) 04/29/25 02:00 100 17 133/78 (96) 97 21 117/79 (92) 04/29/25 01:45 103 16 134/78 (96) 98 118/82 (94) LABS: Laboratory: Test 04/29/25 04:22 04/28/25 18:51 04/28/25 17:31 04/28/25 12:00 Range/Units White Blood Count 11.9 #H 4.8-10.8 K/uL Red Blood Count 3.03 L 4.50-6.20 MIL/uL Hemoglobin 8.9 L 14.0-18.0 g/dL Hematocrit 29.7 L 42-54 % Mean Corpuscular Volume 98.0 79-99 fL Mean Corpuscular Hemoglobin 29.4 27.0-33.0 pg Mean Corpuscular Hemoglobin Concent 30.0 L 32.0-36.0 g/dL Red Cell Distribution Width 18.8 H 11.0-15.5 % Platelet Count 63 L 130-400 K/uL Mean Platelet Volume 11.1 H 7.5-10.5 fL Immature Granulocyte % (Auto) 0.7 0-1 % Neutrophils (%) (Auto) 83.0 H 40.0-77.0 % Lymphocytes (%) (Auto) 12.5 L 21.0-51.0 % Monocytes (%) (Auto) 3.7 3.0-13.0 % Eosinophils (%) (Auto) 0.0 0.0-8.0 % Basophils (%) (Auto) 0.1 0.0-5.0 % Neutrophils # (Auto) 9.8 H 1.8-7.7 K/uL Lymphocytes # (Auto) 1.5 1.0-4.8 K/uL Monocytes # (Auto) 0.4 0.1-1.0 K/uL Eosinophils # (Auto) 0.00 0.00-0.70 K/uL Basophils # (Auto) 0.01 0.00-0.20 K/uL Absolute Immature Granulocyte (auto 0.08 0-1 K/uL Nucleated Red Blood Cells 0.0 0.0-0.19 % Sodium Level 137 136-145 mmol/L Potassium Level 4.6 3.5-5.1 mmol/L Chloride Level 104 101-111 mmol/L Carbon Dioxide Level 26 21-32 mmol/L Blood Urea Nitrogen 33 H 7-18 mg/dL Creatinine 1.2 0.5-1.3 mg/dL Glomerular Filtration Rate Calc 76 >90 mL/min Random Glucose 140 #H 70-105 mg/dL Total Calcium 7.5 L 8.5-10.1 mg/dL Magnesium Level 2.30 1.80-2.40 mg/dL Total Bilirubin 0.3 # 0.2-1.0 mg/dL Aspartate Amino Transf (AST/SGOT) 39 H 10-37 U/L Alanine Aminotransferase (ALT/SGPT) 16 12-78 U/L Alkaline Phosphatase 105 50-136 U/L Total Protein 6.7 6.0-8.3 g/dL Albumin 1.4 L 3.5-5.0 g/dL White Cell Morphology Comment See comments Body Fluid Source PERICARDIAL Body Fluid Volume 45 mL Body Fluid Color YELLOW LT YELLOW Body Fluid pH 7.0 Body Fluid Supernatant Appearance SLIGHTLY CLOUDY CLEAR Body Fluid WBC 121 /cu. mm. Body Fluid RBC 2359 /cu. mm. Body Fluid Neutrophils 52.0 % Body Fluid Lymphocytes 26 % Body Fluid Macrophages (%) 11 Body Fluid Mesothelial Cells (%) 11 % Body Fluid Glucose 95 H 1-40 mg/dL Body Fluid Total Protein 5.5 g/dL Body Fluid Lactate Dehydrogenase 343 U/L Body Fluid Amylase 36 U/L Body Fluid Lipase 9 U/L Iron Level 37 L 65-175 mcg/dL Total Iron Binding Capacity 207 L 250-450 mcg/dL Percent Iron Saturation 17.8 L 30-44 % Troponin I High Sensitivity 817 *H 4-75 ng/L Rheumatoid Factor 12.2 <14.0 IU/mL HIV (1&2) Antibody Non-Reactive Negative HIV P24 Antigen, Qualitative Non-Reactive Negative Test 04/28/25 08:50 Range/Units Platelet Morphology Comment See comments Red Blood Cell Morphology See comments Erythrocyte Sedimentation Rate 61 H 0-15 MM/HR Prothrombin Time 10.6 9.6-11.6 SEC Prothromb Time International Ratio 1.00 0.85-1.15 Activated Partial Thromboplast Time 27.8 26.3-35.5 SEC B-Type Natriuretic Peptide 769 H 0-100 pg/mL Procalcitonin 0.15 0.05-0.5 ng/mL Thyroid Stimulating Hormone (TSH) 4.55 H 0.36-3.74 uIU/mL Current Medications Medications (Trade) Dose Ordered Sig/Brittany Route PRN Reason Start Time Stop Time Status Last Admin Dose Admin Benzocaine (Cepacol Sore Throat Lozenge) 1 each Q4H PRN MM SORE THROAT 04/28/25 11:00 05/28/25 10:59 04/29/25 06:06 1 EACH Dexamethasone Sodium Phosphate (dexaMETHasone 4MG/ML 1ML VIAL) 40 mg Q24H IV 04/28/25 14:30 04/28/25 14:42 DC Dexamethasone Sodium Phosphate 40 mg/Sodium Chloride 50 ml @ 100 mls/hr Q24H IV 04/28/25 15:00 05/28/25 14:59 04/28/25 15:21 100 MLS/HR Famotidine (Pepcid 20mg Vial) 20 mg DAILY IV 04/29/25 09:00 05/29/25 08:59 04/29/25 08:40 20 MG Lisinopril (Prinivil 2.5mg) 2.5 mg DAILY PO 04/29/25 09:00 05/29/25 08:59 Magnesium Sulfate 50 ml @ 0 mls/hr PROTOCOL PRN IV low mag level 04/28/25 11:00 05/28/25 10:59 04/28/25 19:54 25 MLS/HR Metoprolol Succinate (TopROL XL) 12.5 mg DAILY PO 04/29/25 09:00 05/29/25 08:59 04/29/25 08:41 12.5 MG Potassium Chloride 100 ml @ 50 mls/hr AD PRN IV POTASSIUM PROTOCOL 04/28/25 11:00 04/29/25 07:35 DC 04/28/25 23:26 50 MLS/HR Potassium Chloride 100 ml @ 100 mls/hr AD PRN IV POTASSIUM PROTOCOL 04/28/25 11:00 05/28/25 10:59 Potassium Chloride (K-Dur/Klor-Con 20meq) 20 meq AD PRN PO POTASSIUM PROTOCOL 04/28/25 11:00 05/28/25 10:59 Potassium Chloride (KCl 10% Elixir 20meq/15ml) 20 meq AD PRN PO POTASSIUM PROTOCOL 04/28/25 11:00 05/28/25 10:59 DIAGNOSTICS / RADIOLOGY: [ ] ASSESSMENT: acute resp failure with hypoxemia POA NSTEMI POA acute on Chronic Heart failure EF 25% severe pericardial effusion with resp variation evidence by Echo POA s/p thoracentesis removal 950 ml ( 04/27/25) suspecting early tamponade physiology POA Anasarca lower extremity POA acute on Chronic anemia secondary to Lupus POA Thrombocytopenia secondary to Lupus POA electrolytes derangement: hypokalemia debilitated physical deconditioning POA severe protein calorie malnutrition POA chronic problems: autoimmune SLE Low C3 C4 Positive ORI, Anti-Ttius Ab- tested 01/25/24 and jami garcia Sjogren syndrome Positive Anti SS-AAb Negative SS-B (01/27/24) bilateral lower extremity arterial ulcers PLAN: [ ] Admit:ICU condition: guarded Status:Full code IVF: [employer] Supervisor Stone, CV and critical Team hematology Imaging CT chest , Echo noted Oxygen supplement to keep O2 sats above 92%, aspiration precautions head of the bed at [address] reyes started HIGH DOSE DEXAMETHSONE IV 40 MG DAILY Labs cbc, cmp, mag+ on going surveillance will monitor H/H and Platelets: transfuse to keep hgb above 7.0 and platelet above 40,0000; will monitor for acute bleeding. Oral supplements: IV iron, folic acid 1 mg and vitamin B12 1000 mcg daily Replace electrolytes as needed as per protocol to keep potassium above 4.0 magnesium 2.0. decubitus precaution: reposition every 2 hrs aggressive off loading: wound care consulted will follow recommendations. Supportive measures: DVT ppx, GI ppx all questions answered time spent: > 35 min Supervising MD: Dr.Ellis Byers c/d This document was generated in part using voice recognition software, occasional wrong word or sound alike substitutions may have occurred due to the inherent limitations of voice recognition software. Read the chart carefully and recognize using context, where the substitutions have occurred. Although every effort was made to edit the content, passenger car inspector and typing errors may occur ATTESTATION BY PHYSICIAN I have seen and examined the patient. I reviewed the documentation, medical decision making, and treatment plan as noted by the mid-level provider above. I agree with the findings and plan of care. PAXTON REYNOSO MD, [facility] Apr 29, 2025 09:41
[2025-04-29] MEDS: LISINOPRIL 2.5 MG TABLET PO SCH (10:21)
[2025-04-29 11:13] LABS: ANTI-SCLERODERMA 70 0.3 AI (0.0-0.9)
--- NOTE | 2025-04-29 13:07 | PN ---
44 year old male patient with past medical history of SLE, Sjogren was transferred from [facility] to [facility] with diagnosis of Pericardial effusion and bilateral large pleural effusions . Rt side thoracentesis was done at [facility] . As per the patient he was diagnosed with SLE in December 2023 and was not taking any medications for the same . Patient presented to [place] with complaints of chest pain , generalized swelling and shortness of breath .Hematology was consulted with anemia and thrombocytopenia . Patient is evaluated at the bedside .He reports overall improvement in presenting symptoms however he continues to experience generalized swelling. he denies chest pain this time. Labs remarkable for anemia hemoglobin 8.5, thrombocytopenia platelets [id number], elevated troponin of 817, elevated AST 49 iron 37, TSAT 17.8 GFR 9 0 and BUN 28. Echocardiogram reveals severely dilated left ventricle with an ejection fraction of 30-35%, early right ventricular collapse and a large circumferential pericardial effusion consistent with early cardiac tamponade physiology. Patient was started on dexamethasone 40 mg IV. Patient also was found to have iron deficiency anemia as the patient was started on IV iron. It seems the patient is doing very well at this time. His energy improved. PHYSICAL EXAM VITALS: Vital Signs Date Time Temp Pulse Resp B/P (MAP) Pulse Ox O2 Delivery O2 Flow Rate FiO2 04/28/25 15:26 98 Nasal Cannula* 2 28 04/28/25 14:39 97.9 84 17 128/81 GENERAL: ALERT, ORIENTED; No APPEARS-NO ACUTE DISTRESS (MILD DISTRESS) EYES: SCLERAE ANICTERIC, PUPILS EQUAL/REACTIVE ENT/NECK: ORAL MUCOSA W/O LESIONS, OROPHARYNX IS CLEAR; No NECK SUPPLE W/O MASSES (BILATERAL CERVICAL LYMPHADENOPATHY +, LN FIRM CONSISTENCY) RESPIRATORY: No LUNGS CLEAR-AUSC/PERCUS (BREATH SOUNDS DIMINISHED ON LEFT SIDE) CARDIOVASCULAR: REGULAR RATE, REGULAR RHYTHM (DISTANT HEART SOUNDS, PERICARDIAL RUB) GASTROINTESTINAL: ABDOMEN IS SOFT, DISTENDED, PALPABLE MASSES (SPLEEN TIP PALPABLE) HEMATOLOGY/LYMPHATIC: CERVICAL ADENOPATHY; No SUPRACLAVICULR ADENOPATHY, No AXILLARY ADENOPATHY; INGUINAL ADENOPATHY MUSCULOSKELETAL: No CYANOSIS-EXTREMETIES; CLUBBING, EDEMA SKIN/BREASTS: RASH (HEALED ARTERIAL ULCER SCARS BILATERAL LOWER EXTREMITY) NEUROLOGICAL: GROSSLY INTACT IMPRESSION Systemic lupus erythematosus , acute flare with multiorgan involvement Acute large pericardial effusion Acute bilateral pleural effusion 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 This patient to continue dexamethasone 40 mg daily while in the hospital. Then this patient will need tapering dose of prednisone to start 50 mg daily for 1 week then taper down 10 mg every week until stop. 2. This patient will benefit from IV iron, folic acid 1 mg daily and vitamin B12 1000 mcg daily. 3. Manual platelet count around 100 K-no platelet transfusion warranted at this time. We will recommend 1 unit of single donor platelet transfusion if necessary. 4. Generalized lymphadenopathy noted. We will request CT of abdomen and pelvis. Pending CT chest results. 5. Patient noted with bilateral lower extremity arterial ulcers which might indicate vasculitic component of underlying autoimmune disease 6. 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 We will ask for SPEP, UPEP and free light chain. If there is monoclonal protein we will do a bone marrow biopsy. Vitals/Labs Vital Signs Date Time Temp Pulse Resp B/P (MAP) Pulse Ox O2 Delivery O2 Flow Rate FiO2 04/29/25 12:00 98.1 94 18 133/75 97 Room Air 21 04/29/25 08:00 0 Laboratory Tests 04/28/25 15:02 04/28/25 18:51 04/29/25 04:22 Microbiology Date/Time Source Procedure Growth Status 04/28/25 17:31 Body Fluids Pericardial Fluid ANKUSH Preparation - Final Complete Medications Current Medications Magnesium Sulfate 50 ml @ 0 mls/hr PROTOCOL PRN IV Last administered on 04/28/25at 19:54; Start 04/28/25 at 11:00; Stop 05/28/25 at 10:59 Potassium Chloride 100 ml @ 100 mls/hr AD PRN IV; Start 04/28/25 at 11:00; Stop 05/28/25 at 10:59 Potassium Chloride 20 meq AD PRN PO; Start 04/28/25 at 11:00; Stop 05/28/25 at 10:59 Potassium Chloride 20 meq AD PRN PO; Start 04/28/25 at 11:00; Stop 05/28/25 at 10:59 Potassium Chloride 100 ml @ 50 mls/hr AD PRN IV Last administered on 04/28/25at 23:26; Start 04/28/25 at 11:00; Stop 04/29/25 at 07:35; Status DC Benzocaine 1 each Q4H PRN MM Last administered on 04/29/25at 06:06; Start 04/28/25 at 11:00; Stop 05/28/25 at 10:59 Dexamethasone Sodium Phosphate 40 mg Q24H IV; Start 04/28/25 at 14:30; Stop 04/28/25 at 14:42; Status DC Dexamethasone Sodium Phosphate 40 mg/Sodium Chloride 50 ml @ 100 mls/hr Q24H IV Last administered on 04/28/25at 15:21; Start 04/28/25 at 15:00; Stop 05/28/25 at 14:59 Cefazolin Sodium 1 gm STK-MED ONCE .ROUTE; Start 04/28/25 at 16:18; Stop 04/28/25 at 16:18; Status DC Dexamethasone Sodium Phosphate 10 mg STK-MED ONCE .ROUTE; Start 04/28/25 at 16:43; Stop 04/28/25 at 16:43; Status DC Ondansetron HCl 4 mg STK-MED ONCE .ROUTE; Start 04/28/25 at 16:43; Stop 04/28/25 at 16:43; Status DC Lidocaine HCl 100 mg STK-MED ONCE .ROUTE; Start 04/28/25 at 16:43; Stop 04/28/25 at 16:43; Status DC Succinylcholine Chloride 200 mg STK-MED ONCE .ROUTE; Start 04/28/25 at 16:44; Stop 04/28/25 at 16:44; Status DC Glycopyrrolate 1 mg STK-MED ONCE .ROUTE; Start 04/28/25 at 16:44; Stop 04/28/25 at 16:44; Status DC Fentanyl Citrate 100 mcg STK-MED ONCE .ROUTE; Start 04/28/25 at 16:44; Stop 04/28/25 at 16:45; Status DC Propofol 200 mg STK-MED ONCE IV; Start 04/28/25 at 16:45; Stop 04/28/25 at 16:45; Status DC Neostigmine Methylsulfate 10 mg STK-MED ONCE IV; Start 04/28/25 at 16:45; Stop 04/28/25 at 16:45; Status DC Rocuronium [place] 50 mg STK-MED ONCE .ROUTE; Start 04/28/25 at 16:45; Stop 04/28/25 at 16:45; Status DC Etomidate 20 mg STK-MED ONCE .ROUTE; Start 04/28/25 at 16:45; Stop 04/28/25 at 16:45; Status DC Norepinephrine Bitartrate 4 mg STK-MED ONCE IV; Start 04/28/25 at 16:46; Stop 04/28/25 at 16:46; Status DC Epinephrine HCl 1 mg STK-MED ONCE .ROUTE; Start 04/28/25 at 16:46; Stop 04/28/25 at 16:46; Status DC Cefazolin Sodium 2 gm STK-MED ONCE IVPB Last administered on 04/28/25at 17:04; Start 04/28/25 at 17:04; Stop 04/28/25 at 18:07; Status DC Famotidine 20 mg DAILY IV Last administered on 04/29/25at 08:40; Start 04/29/25 at 09:00; Stop 05/29/25 at 08:59 Metoprolol Succinate 12.5 mg DAILY PO Last administered on 04/29/25at 08:41; Start 04/29/25 at 09:00; Stop 05/29/25 at 08:59 Lisinopril 2.5 mg DAILY PO Last administered on 04/29/25at 10:21; Start 04/29/25 at 09:00; Stop 05/29/25 at 08:59 Iron Sucrose 200 mg DAILY ONCE IV; Start 04/30/25 at 09:00; Stop 04/30/25 at 09:01 JACKIE HAMMER MD Apr 29, 2025 13:07
--- NOTE | 2025-04-29 14:09 | OP ---
DATE OF PROCEDURE: 04/28/2025 TIME: 5:00 p.m. PREOPERATIVE DIAGNOSIS: Pericardial effusion. POSTOPERATIVE DIAGNOSIS: Pericardial effusion. PROCEDURES PERFORMED: 1. Pericardial window. 2. Pericardial tissue biopsy. SURGEON: Cosme Lewis MD, SHIP MATE: Jory Giron. DESCRIPTION OF PROCEDURE: Following anesthesia induction without any complication and appropriate preparation of the operative field, a 5 cm incision was made over the xiphoid process. The xiphoid process was then removed. The pericardium was identified. A longitudinal incision was made with a 15 blade. A large amount of pericardial fluid was evacuated. Majority of it was serous. After that, a piece of pericardium was cut and sent to Pathology. Subsequently, we placed a [place] drain into the pericardial sac and exteriorized it through the skin. After that, the wound was closed with 2-0 Vicryl and 4-0 Monocryl suture. I was present throughout the entire operation. The patient tolerated the operation well and transferred to the Intensive Care Unit in stable condition. TID: [id number] RECEIPT: [id number]
--- NOTE | 2025-04-29 14:11 | HMCIMG ---
EXAM: CR Chest, single view. CLINICAL HISTORY: Hypoxic respiratory failure. COMPARISON: Prior chest radiograph dated April 28, 2025. FINDINGS: Mild cardiomegaly with bilateral pulmonary congestion. Mild bilateral pleural effusion, left intercostal drainage catheter in the right pleural cavity. No acute osseous abnormality. IMPRESSION: Mild cardiomegaly with bilateral pulmonary congestion. Mild bilateral pleural effusion, left more than right with adjacent lung atelectasis. No evidence of pneumothorax. Intercostal drainage catheter in the right pleural cavity. Compared to the prior study, redemonstrated changes of congestive cardiac failure. There is no significant interval change. /[place]
--- NOTE | 2025-04-29 15:15 | NUR ---
DCP:HOME Pt states that he currently lives at home with his Traci Donohue [phone]. Pt denies having any DME, home health, or provider services. pt states that he can complete ADLs independently. PCP is Dr. Jerod Medellin from [facility] and uses [facility] for any RX needs. At [place] pt will want to go home and family can assist with transportation. Addendum: 04/29/25 at 1517 by ANDRÉS FLORIAN SS Amended: Links added.
--- NOTE | 2025-04-29 19:22 | HMCIMG ---
EXAM: CT Abdomen and Pelvis Without IV contrast CLINICAL HISTORY: SLE flare up , splenomegaly , generalized lymphadenopathy TECHNIQUE: Axial computed tomography images of the abdomen and pelvis without intravenous contrast. CONTRAST: No IV contrast. COMPARISON: None provided. FINDINGS: LUNG BASES: Bilateral moderate to gross pleural effusion with collapse of the lower lobes with minimal adjacent consolidation. Drainage tube noted on right side LIVER: Measures 17 cms with no focal lesion. GALLBLADDER AND BILE DUCTS: Not visualized. PANCREAS: Unremarkable. SPLEEN: Measures 12.8 cms with no focal lesions. ADRENAL GLANDS: Unremarkable. KIDNEYS, URETERS, AND BLADDER: The kidneys appear within normal limits. There is no hydronephrosis or hydroureter. No urinary calculi are seen. Perinephric fat stranding is evident bilaterally. STOMACH AND BOWEL: Unremarkable appearance of the stomach and bowel. No evidence of bowel obstruction. No evidence suggesting enteritis or colitis. APPENDIX: No evidence of acute appendicitis on CT examination. PERITONEUM: Moderate ascites. No free air. Diffuse abdominal wall edema evident. LYMPH NODES: No lymphadenopathy is evident. REPRODUCTIVE: Unremarkable as visualized. VASCULATURE: No evidence of abdominal aortic aneurysm. BONES: No aggressive appearing osseous lesion. No acute osseous pathology evident. 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 IMPRESSION: Moderate ascites Bilateral moderate to gross pleural effusion. Hepatosplenomegaly. 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 /[place]
[2025-04-30] VITALS (12 sets, daily range): BP systolic 123–150; BP diastolic 75–98; PULSE 82–97; RESP 16–25; TEMP 97.5–98.2; O2SAT 98
--- NOTE | 2025-04-30 04:00 | PN ---
TIME: 10:00 a.m. SUBJECTIVE: The patient is a 44-year-old gentleman status post pericardial window yesterday for pericardial effusion. No major events overnight. Recovering well so far. PHYSICAL EXAMINATION: NEUROLOGIC: Alert and oriented with no deficits. CARDIAC: S1, S2. Regular rate and rhythm. RESPIRATORY: Clear to auscultation bilaterally. The incision was clean, dry, and intact. Chest tube had been placed with serous output. ASSESSMENT AND PLAN: Pericardial effusion, status post pericardial window. We removed about 1 L of fluid from his pericardial cavity. We sent the fluid for analysis to the laboratory. We also sent the piece of pericardium for pathology. We will follow up with results and direct care as appropriate. TID: [id number] RECEIPT: [id number]
[2025-04-30 05:21] LABS: NUCLEATED RED BLOOD CELLS 0.2 % (0.0-0.19); PLATELET COUNT (AUTO) 65 K/uL (130-400); RED BLOOD CELL COUNT(AUTO) 2.55 MIL/uL (4.50-6.20); RED CELL DISTRIBUTION WIDTH 18.6 % (11.0-15.5); WHITE BLOOD COUNT (AUTO) 11.2 K/uL (4.8-10.8)
[2025-04-30 05:34] LABS: CREATININE 1.3 mg/dL (0.5-1.3); GLOMERULAR FILTR. RATE CALC 69.0 mL/min (>90); GLUCOSE,RANDOM 141.0 mg/dL (70-105); SODIUM SERUM 136.0 mmol/L (136-145); UREA NITROGEN, BLOOD 40.0 mg/dL (7-18)
--- NOTE | 2025-04-30 06:42 | PN ---
[facility] Cardiology Progress Note CARDIOLOGY PROGRESS NOTE APRIL 30, 2025 Problems: 1. Large pericardial effusion with pre tamponade physiology by echo status post pericardial window 2. Left pleural effusion status post thoracentesis and chest tube placement 3. Elevated troponin with reduced ejection fraction of 30-35% suggesting possible myocarditis. 4. History of pustules on the lower extremities now healed with scars. 5. Thrombocytopenia 6. ORI positive Blood pressure is running 125-130 systolic. Heart rate is in the 80s the patient is afebrile. Chest x-ray shows cardiomegaly. Passive congestive changes are present. Chest tube was in place. There was no pneumothorax. White count 11.2 hemoglobin 7.5 down from 8.9 yesterday. Platelet count 33633. Potassium 4.0 BUN 40 creatinine 1.3. The patient continues on famotidine IV furosemide lisinopril metoprolol succinate. Heart rate and blood pressure are better controlled with lisinopril and metoprolol. Currently he is resting comfortably flat. He has a nonproductive cough. This may be related to his recent pleural effusion however as a precaution I will discontinue lisinopril and place him on losartan. At some point in the future when he has fully recovered he will require further evaluation to include a stress test as an outpatient. SANDHYA CARTAGENA MD Apr 30, 2025 06:42
--- NOTE | 2025-04-30 09:01 | PN ---
44 year old male patient with past medical history of SLE, Sjogren was transferred from [facility] to [facility] with diagnosis of Pericardial effusion and bilateral large pleural effusions . Rt side thoracentesis was done at [facility] . As per the patient he was diagnosed with SLE in December 2023 and was not taking any medications for the same . Patient presented to [place] with complaints of chest pain , generalized swelling and shortness of breath .Hematology was consulted with anemia and thrombocytopenia . Patient is evaluated at the bedside .He reports overall improvement in presenting symptoms however he continues to experience generalized swelling. he denies chest pain this time. Labs remarkable for anemia hemoglobin 8.5, thrombocytopenia platelets 62729, elevated troponin of 817, elevated AST 49 iron 37, TSAT 17.8 GFR 9 0 and BUN 28. Echocardiogram reveals severely dilated left ventricle with an ejection fraction of 30-35%, early right ventricular collapse and a large circumferential pericardial effusion consistent with early cardiac tamponade physiology. Patient was started on dexamethasone 40 mg IV. Patient also was found to have iron deficiency anemia as the patient was started on IV iron. It seems the patient is doing very well at this time. His energy improved. PHYSICAL EXAM VITALS: GENERAL: ALERT, ORIENTED; No APPEARS-NO ACUTE DISTRESS (MILD DISTRESS) EYES: SCLERAE ANICTERIC, PUPILS EQUAL/REACTIVE ENT/NECK: ORAL MUCOSA W/O LESIONS, OROPHARYNX IS CLEAR; No NECK SUPPLE W/O MASSES (BILATERAL CERVICAL LYMPHADENOPATHY +, LN FIRM CONSISTENCY) RESPIRATORY: No LUNGS CLEAR-AUSC/PERCUS (BREATH SOUNDS DIMINISHED ON LEFT SIDE) CARDIOVASCULAR: REGULAR RATE, REGULAR RHYTHM (DISTANT HEART SOUNDS, PERICARDIAL RUB) GASTROINTESTINAL: ABDOMEN IS SOFT, DISTENDED, PALPABLE MASSES (SPLEEN TIP PALPABLE) HEMATOLOGY/LYMPHATIC: CERVICAL ADENOPATHY; No SUPRACLAVICULR ADENOPATHY, No AXILLARY ADENOPATHY; INGUINAL ADENOPATHY MUSCULOSKELETAL: No CYANOSIS-EXTREMETIES; CLUBBING, EDEMA SKIN/BREASTS: RASH (HEALED ARTERIAL ULCER SCARS BILATERAL LOWER EXTREMITY) NEUROLOGICAL: GROSSLY INTACT IMPRESSION Systemic lupus erythematosus , acute flare with multiorgan involvement Acute large pericardial effusion Acute bilateral pleural effusion 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 continue dexamethasone 40 mg daily while in the hospital. Then this patient will need tapering dose of prednisone to start 50 mg daily for 1 week then taper down 10 mg every week until stop. 2. This patient will benefit from IV iron, folic acid 1 mg daily and vitamin B12 1000 mcg daily. 3. Manual platelet count around 100 K-no platelet transfusion warranted at this time. We will recommend 1 unit of single donor platelet transfusion if necessary. 4. Generalized lymphadenopathy noted. We will request CT of abdomen and pelvis. Pending CT chest results. 5. Patient noted with bilateral lower extremity arterial ulcers which might indicate vasculitic component of underlying autoimmune disease 6. 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 We will ask for SPEP, UPEP and free light chain. If there is monoclonal protein we will do a bone marrow biopsy. Vitals/Labs Vital Signs Date Time Temp Pulse Resp B/P (MAP) Pulse Ox O2 Delivery O2 Flow Rate FiO2 04/30/25 08:00 97.7 92 18 140/91 98 Room Air 21 04/29/25 20:00 0 Laboratory Tests 04/30/25 04:55 Medications Current Medications Magnesium Sulfate 50 ml @ 0 mls/hr PROTOCOL PRN IV Last administered on 04/28/25at 19:54; Start 04/28/25 at 11:00; Stop 05/28/25 at 10:59 Potassium Chloride 100 ml @ 100 mls/hr AD PRN IV; Start 04/28/25 at 11:00; Stop 05/28/25 at 10:59 Potassium Chloride 20 meq AD PRN PO; Start 04/28/25 at 11:00; Stop 05/28/25 at 10:59 Potassium Chloride 20 meq AD PRN PO; Start 04/28/25 at 11:00; Stop 05/28/25 at 10:59 Potassium Chloride 100 ml @ 50 mls/hr AD PRN IV Last administered on 04/28/25at 23:26; Start 04/28/25 at 11:00; Stop 04/29/25 at 07:35; Status DC Benzocaine 1 each Q4H PRN MM Last administered on 04/30/25at 06:54; Start 04/28/25 at 11:00; Stop 05/28/25 at 10:59 Dexamethasone Sodium Phosphate 40 mg Q24H IV; Start 04/28/25 at 14:30; Stop 04/28/25 at 14:42; Status DC Dexamethasone Sodium Phosphate 40 mg/Sodium Chloride 50 ml @ 100 mls/hr Q24H IV Last administered on 10/29/25at 15:25; Start 04/28/25 at 15:00; Stop 05/28/25 at 14:59 Cefazolin Sodium 1 gm STK-MED ONCE .ROUTE; Start 04/28/25 at 16:18; Stop 04/28/25 at 16:18; Status DC Dexamethasone Sodium Phosphate 10 mg STK-MED ONCE .ROUTE; Start 04/28/25 at 16:43; Stop 04/28/25 at 16:43; Status DC Ondansetron HCl 4 mg STK-MED ONCE .ROUTE; Start 04/28/25 at 16:43; Stop 04/28/25 at 16:43; Status DC Lidocaine HCl 100 mg STK-MED ONCE .ROUTE; Start 04/28/25 at 16:43; Stop 04/28/25 at 16:43; Status DC Succinylcholine Chloride 200 mg STK-MED ONCE .ROUTE; Start 04/28/25 at 16:44; Stop 04/28/25 at 16:44; Status DC Glycopyrrolate 1 mg STK-MED ONCE .ROUTE; Start 04/28/25 at 16:44; Stop 04/28/25 at 16:44; Status DC Fentanyl Citrate 100 mcg STK-MED ONCE .ROUTE; Start 04/28/25 at 16:44; Stop 04/28/25 at 16:45; Status DC Propofol 200 mg STK-MED ONCE IV; Start 04/28/25 at 16:45; Stop 04/28/25 at 16:45; Status DC Neostigmine Methylsulfate 10 mg STK-MED ONCE IV; Start 04/28/25 at 16:45; Stop 04/28/25 at 16:45; Status DC Rocuronium [place] 50 mg STK-MED ONCE .ROUTE; Start 04/28/25 at 16:45; Stop 04/28/25 at 16:45; Status DC Etomidate 20 mg STK-MED ONCE .ROUTE; Start 04/28/25 at 16:45; Stop 04/28/25 at 16:45; Status DC Norepinephrine Bitartrate 4 mg STK-MED ONCE IV; Start 04/28/25 at 16:46; Stop 04/28/25 at 16:46; Status DC Epinephrine HCl 1 mg STK-MED ONCE .ROUTE; Start 04/28/25 at 16:46; Stop 04/28/25 at 16:46; Status DC Cefazolin Sodium 2 gm STK-MED ONCE IVPB Last administered on 04/28/25at 17:04; Start 04/28/25 at 17:04; Stop 04/28/25 at 18:07; Status DC Famotidine 20 mg DAILY IV Last administered on 04/30/25at 08:29; Start 04/29/25 at 09:00; Stop 05/29/25 at 08:59 Metoprolol Succinate 12.5 mg DAILY PO Last administered on 04/30/25at 08:29; Start 04/29/25 at 09:00; Stop 05/29/25 at 08:59 Lisinopril 2.5 mg DAILY PO Last administered on 04/29/25at 10:21; Start 04/29/25 at 09:00; Stop 04/30/25 at 06:43; Status DC Iron Sucrose 200 mg DAILY ONCE IV; Start 04/30/25 at 09:00; Stop 04/29/25 at 14:05; Status DC Iron Sucrose 200 mg Q24H IV Last administered on 04/29/25at 15:25; Start 04/29/25 at 14:30; Stop 05/01/25 at 14:31 Furosemide 20 mg Q12H IV Last administered on 04/30/25at 02:54; Start 04/29/25 at 15:00; Stop 05/29/25 at 14:59 Losartan Potassium 25 mg DAILY PO Last administered on 04/30/25at 08:29; Start 04/30/25 at 09:00; Stop 05/30/25 at 08:59 JACKIE HAMMER MD Apr 30, 2025 09:01
--- NOTE | 2025-04-30 09:10 | PN ---
[facility] PROGRESS NOTE Date of Service: Apr 30, 2025 Time of Service: 09:10 SUBJECTIVE: [ ] This is a 44-year-old male was transfer from [facility] with Severe pericardial effusion early Tamponade physiology for further workup and treatment: s/p thoracentesis left sided with 950 ml on 04/28/25. Past medical history with untreated SLE and Sjogren syndrome (Positive Anti-SS-AAb, negative SS-B), and a history of low C3, C4, positive ORI, positive anti Titus antibody on 01/27/2024 who presented to [facility] with a 4-6 week onset of shortness of breath and bilateral lower extremity edema. ROMULUS workup revealed acute on chronic congestive heart failure. 2D Echo on 04/26/2025 revealed and LVEF of 25% with severe global hypokinesis, severe pericardial effusion with respiratory variation consistent with early tamponade physiology with RA collapse noted. 04/29/25 patient was seen earlier patient lying in bed appears chronically ill continue to experience units generalized swelling however he denied chest pain at this time. Primary nurse reports no events overnight. Waiting for CV recommendations. 04/30/25 s/p pericardial effusion removal 1 liter, fluid sent out analysis and pericardial tissue bx taken. Patient is being followed by Dr. Houston. And critical team we will follow the recommendations. REVIEW OF SYSTEMS CONSTITUTIONAL: Denies fevers, chills, or night sweats. No unintentional weight loss reported. NEUROLOGICAL: Denies headache, amaurosis fugax, motor weakness, sensory deficit, vertigo/spinning sensation, gait abnormalities, or tremors. ENT: No hearing loss, otalgia, otorrhea, rhinitis, rhinorrhea, hoarseness, or sore throat. CARDIOVASCULAR: Denies any exertional angina, dyspnea on exertion, orthopnea, paroxysmal nocturnal dyspnea, palpitations, life-threatening arrhythmias, claudication. PULMONARY: Denies any shortness of breath, cough, phlegm/sputum, hemoptysis, pleuritic chest pain. SLEEP: Denies morning headaches, daytime somnolence or napping. Denies difficulty falling asleep, staying asleep, waking from sleep. Denies knowledge of snoring. GASTROINTESTINAL: Denies any type of dysphagia to either liquids or solids. Denies nausea, vomiting, pyrosis, early satiety, abdominal pain, diarrhea, constipation, or changes in stool consistency or caliber. Denies coffee-ground emesis, hematemesis, hematochezia, or melanotic stools. GENITOURINARY: Denies frequency, urgency, nocturia, hematuria or incontinence ( Storage/Irritative symptoms.) Low urinary stream, straining to void, urinary intermittency or hesitancy, splitting of the voiding stream, terminal dribbling. ENDOCRINOLOGIC: Denies polyuria, polydipsia, polyphagia or heat/cold intolerances. HEMATOLOGIC: Denies thrombophilia/previous clots, or coagulopathy/bleeding disorders. ONCOLOGIC: Denies personal history of malignancy. DERMATOLOGIC: Denies rashes or pruritus. PSYCHIATRIC: Denies any suicidal or homicidal ideation. Denies hallucinations. PHYSICAL EXAM GENERAL APPEARANCE: The patient is awake, alert, and oriented, in no acute cardiopulmonary distress. NEUROLOGICAL: Cranial nerves II-XII grossly intact. Motor is 5/5 in bilateral upper and lower extremities proximal to distal. No sensory deficits. HEENT: Face is symmetric. Pupils are equal and reactive. Extraocular movements are intact. NECK: Supple. No JVD. No thyromegaly. No submental, submandibular, pre- /postauricular, occipital or supraclavicular lymphadenopathy. CHEST: Normal chest expansion. No Telemetry. LUNGS: Absence of any rales, rhonchi or any wheezing. CARDIOVASCULAR: Regular. S1 and S2 normal. No appreciable rubs, murmurs or gallops. ABDOMEN: Soft, nontender, and nondistended. There is no rebound, voluntary guarding, or rigidity. : Deferred. No Henriquez. EXTREMITIES: Non-edematous and not cyanotic. No clubbing. Good capillary refill. SKIN: No skin breakdown. Vital Signs (last 8hr) Date Time Temp Pulse Resp B/P (MAP) Pulse Ox O2 Delivery O2 Flow Rate FiO2 04/30/25 08:00 97.7 92 18 140/91 98 Room Air 04/30/25 06:00 86 17 126/87 (100) 97 21 04/30/25 05:00 86 19 130/92 (105) 96 21 04/30/25 04:00 98.1 82 17 126/85 (99) 95 21 04/30/25 04:00 98.1 Room Air 04/30/25 03:00 91 22 127/87 (100) 97 21 04/30/25 02:00 93 18 123/88 (100) 96 21 LABS: Laboratory: Test 04/30/25 04:55 04/29/25 04:22 04/28/25 18:51 04/28/25 17:31 Range/Units White Blood Count 11.2 H 4.8-10.8 K/uL Red Blood Count 2.55 L 4.50-6.20 MIL/uL Hemoglobin 7.5 L 14.0-18.0 g/dL Hematocrit 24.9 L 42-54 % Mean Corpuscular Volume 97.6 79-99 fL Mean Corpuscular Hemoglobin 29.4 27.0-33.0 pg Mean Corpuscular Hemoglobin Concent 30.1 L 32.0-36.0 g/dL Red Cell Distribution Width 18.6 H 11.0-15.5 % Platelet Count 65 L 130-400 K/uL Mean Platelet Volume 7.5-10.5 fL Nucleated Red Blood Cells 0.2 H 0.0-0.19 % Sodium Level 136 136-145 mmol/L Potassium Level 4.0 3.5-5.1 mmol/L Chloride Level 104 101-111 mmol/L Carbon Dioxide Level 26 21-32 mmol/L Blood Urea Nitrogen 40 H 7-18 mg/dL Creatinine 1.3 0.5-1.3 mg/dL Glomerular Filtration Rate Calc 69 >90 mL/min Random Glucose 141 H 70-105 mg/dL Total Calcium 7.3 L 8.5-10.1 mg/dL Magnesium Level 2.10 1.80-2.40 mg/dL Immature Granulocyte % (Auto) 0.7 0-1 % Neutrophils (%) (Auto) 83.0 H 40.0-77.0 % Lymphocytes (%) (Auto) 12.5 L 21.0-51.0 % Monocytes (%) (Auto) 3.7 3.0-13.0 % Eosinophils (%) (Auto) 0.0 0.0-8.0 % Basophils (%) (Auto) 0.1 0.0-5.0 % Neutrophils # (Auto) 9.8 H 1.8-7.7 K/uL Lymphocytes # (Auto) 1.5 1.0-4.8 K/uL Monocytes # (Auto) 0.4 0.1-1.0 K/uL Eosinophils # (Auto) 0.00 0.00-0.70 K/uL Basophils # (Auto) 0.01 0.00-0.20 K/uL Absolute Immature Granulocyte (auto 0.08 0-1 K/uL Total Bilirubin 0.3 # 0.2-1.0 mg/dL Aspartate Amino Transf (AST/SGOT) 39 H 10-37 U/L Alanine Aminotransferase (ALT/SGPT) 16 12-78 U/L Alkaline Phosphatase 105 50-136 U/L Total Protein 6.7 6.0-8.3 g/dL Albumin 1.4 L 3.5-5.0 g/dL White Cell Morphology Comment See comments Body Fluid Source PERICARDIAL Body Fluid Volume 45 mL Body Fluid Color YELLOW LT YELLOW Body Fluid pH 7.0 Body Fluid Supernatant Appearance SLIGHTLY CLOUDY CLEAR Body Fluid WBC 121 /cu. mm. Body Fluid RBC 2359 /cu. mm. Body Fluid Neutrophils 52.0 % Body Fluid Lymphocytes 26 % Body Fluid Macrophages (%) 11 Body Fluid Mesothelial Cells (%) 11 % Body Fluid Glucose 95 H 1-40 mg/dL Body Fluid Total Protein 5.5 g/dL Body Fluid Lactate Dehydrogenase 343 U/L Body Fluid Amylase 36 U/L Body Fluid Lipase 9 U/L Test 04/28/25 12:00 Range/Units Iron Level 37 L 65-175 mcg/dL Total Iron Binding Capacity 207 L 250-450 mcg/dL Percent Iron Saturation 17.8 L 30-44 % Troponin I High Sensitivity 817 *H 4-75 ng/L Rheumatoid Factor 12.2 <14.0 IU/mL Anti-Nuclear Antibody Screen Positive H Negative Anti-Nuclear Antibody Interpret Comment . ADRIANE-1 Antibody <0.2 0.0-0.9 AI SS-A/Ro Antibody >8.0 H 0.0-0.9 AI SS-B/La Antibody <0.2 0.0-0.9 AI Sm (Titus) IgG Antibody, Quant 7.1 H 0.0-0.9 AI KNOT TYING OPERATOR IgG Antibody, Quantitative 0.9 0.0-0.9 AI Scl-70 (Scleroderma) Antibody 0.3 0.0-0.9 AI Anti-Double Strand DNA Antibody 7 0-9 IU/mL Chromatin Antibody >8.0 H 0.0-0.9 AI Anti-Centromere IgG Antibody <0.2 0.0-0.9 AI HIV (1&2) Antibody Non-Reactive Negative HIV P24 Antigen, Qualitative Non-Reactive Negative Current Medications Medications (Trade) Dose Ordered Sig/Brittany Route PRN Reason Start Time Stop Time Status Last Admin Dose Admin Benzocaine (Cepacol Sore Throat Lozenge) 1 each Q4H PRN MM SORE THROAT 04/28/25 11:00 05/28/25 10:59 04/30/25 06:54 1 EACH Dexamethasone Sodium Phosphate (dexaMETHasone 4MG/ML 1ML VIAL) 40 mg Q24H IV 04/28/25 14:30 04/28/25 14:42 DC Dexamethasone Sodium Phosphate 40 mg/Sodium Chloride 50 ml @ 100 mls/hr Q24H IV 04/28/25 15:00 05/28/25 14:59 04/29/25 15:25 100 MLS/HR Famotidine (Pepcid 20mg Vial) 20 mg DAILY IV 04/29/25 09:00 05/29/25 08:59 04/30/25 08:29 20 MG Furosemide (LASix 20MG VIAL) 20 mg Q12H IV 04/29/25 15:00 05/29/25 14:59 04/30/25 02:54 20 MG Iron Sucrose (VenoFER) 200 mg Q24H IV 04/29/25 14:30 05/01/25 14:31 04/29/25 15:25 200 MG Lisinopril (Prinivil 2.5mg) 2.5 mg DAILY PO 04/29/25 09:00 04/30/25 06:43 DC 04/29/25 10:21 2.5 MG Losartan Potassium (CozAAR 25MG TAB) 25 mg DAILY PO 04/30/25 09:00 05/30/25 08:59 04/30/25 08:29 25 MG Magnesium Sulfate 50 ml @ 0 mls/hr PROTOCOL PRN IV low mag level 04/28/25 11:00 05/28/25 10:59 04/28/25 19:54 25 MLS/HR Metoprolol Succinate (TopROL XL) 12.5 mg DAILY PO 04/29/25 09:00 05/29/25 08:59 04/30/25 08:29 12.5 MG Potassium Chloride 100 ml @ 50 mls/hr AD PRN IV POTASSIUM PROTOCOL 04/28/25 11:00 04/29/25 07:35 DC 04/28/25 23:26 50 MLS/HR Potassium Chloride 100 ml @ 100 mls/hr AD PRN IV POTASSIUM PROTOCOL 04/28/25 11:00 05/28/25 10:59 Potassium Chloride (K-Dur/Klor-Con 20meq) 20 meq AD PRN PO POTASSIUM PROTOCOL 04/28/25 11:00 05/28/25 10:59 Potassium Chloride (KCl 10% Elixir 20meq/15ml) 20 meq AD PRN PO POTASSIUM PROTOCOL 04/28/25 11:00 05/28/25 10:59 DIAGNOSTICS / RADIOLOGY: [ ] ASSESSMENT: acute resp failure with hypoxemia POA NSTEMI POA acute on Chronic Heart failure EF 25% severe pericardial effusion with resp variation evidence by Echo POA 04/29/25 s/p pericardial effusion removal 1000 l with pericardial tissue bx. s/p thoracentesis removal 950 ml ( 04/27/25) suspecting early tamponade physiology POA Anasarca lower extremity POA acute on Chronic anemia secondary to Lupus POA Thrombocytopenia secondary to Lupus POA electrolytes derangement: hypokalemia debilitated physical deconditioning POA severe protein calorie malnutrition POA chronic problems: autoimmune SLE Low C3 C4 Positive ORI, Anti-Titus Ab- tested 01/25/24 and secondary Sjogren syndrome Positive Anti SS-AAb Negative SS-B (01/27/24) bilateral lower extremity arterial ulcers PLAN: [ ] Admit:ICU condition: guarded Status:Full code IVF: [employer], CV and critical Team hematology Imaging CT chest , Echo noted Oxygen supplement to keep O2 sats above 92%, aspiration precautions head of the bed at [address] reyes started HIGH DOSE DEXAMETHSONE IV 40 MG DAILY will continue with IV iron Labs cbc, cmp, mag+ on going surveillance will monitor H/H and Platelets: transfuse to keep hgb above 7.0 and platelet above 40,0000; will monitor for acute bleeding. Oral supplements: IV iron, folic acid 1 mg and vitamin B12 1000 mcg daily Replace electrolytes as needed as per protocol to keep potassium above 4.0 magnesium 2.0. decubitus precaution: reposition every 2 hrs aggressive off loading: wound care consulted will follow recommendations. Supportive measures: DVT ppx, GI ppx all questions answered time spent: > 35 min Supervising MD: Dr.Ellis Byers c/d This document was generated in part using voice recognition software, occasional wrong word or sound alike substitutions may have occurred due to the inherent limitations of voice recognition software. Read the chart carefully and recognize using context, where the substitutions have occurred. Although every effort was made to edit the content, mystery shopper and typing errors may occur ATTESTATION BY PHYSICIAN I have seen and examined the patient. I reviewed the documentation, medical decision making, and treatment plan as noted by the mid-level provider above. I agree with the findings and plan of care. PAXTON REYNOSO MD, [facility] Apr 30, 2025 09:10
[2025-04-30 10:06] LABS: NUCLEATED RED BLOOD CELLS 0.2 % (0.0-0.19); PLATELET COUNT (AUTO) 64 K/uL (130-400); RED BLOOD CELL COUNT(AUTO) 2.61 MIL/uL (4.50-6.20); RED CELL DISTRIBUTION WIDTH 18.7 % (11.0-15.5); WHITE BLOOD COUNT (AUTO) 12.3 K/uL (4.8-10.8)
--- NOTE | 2025-04-30 11:15 | NUR ---
[facility] Consult: Patient assessed by wound healing team. Patient with no wounds, scabbed areas to RLE. Assessment and recommendations provided to primary nurse. Education provided. Addendum: 05/01/25 at 1105 by BRANDY MCGARRY RN RN/ Amended: Links added.
--- NOTE | 2025-04-30 14:46 | HMCIMG ---
CT CHEST W/O CONTRAST REASON: pericardioeffusion COMPARISON: None. TECHNIQUE: Multiple sequential axial images of the chest were obtained from the thoracic inlet through the upper pole of the kidneys without intravenous contrast administration. FINDINGS: The heart is normal size. There is a large pericardial effusion seen circumferentially with the widest width of 3.7 cm. There is a large left-sided pleural effusion and moderate right-sided pleural effusion.. No mediastinal or axillary lymphadenopathy identified. There is no pleural or pericardial effusion. The lungs are atelectatic due to large pleural effusion.. The remaining lungs are clear. There is no consolidation or pneumothorax. Trachea and main bronchi are unremarkable. No chest wall abnormality identified. There is subcutaneous fat stranding suggesting anasarca. IMPRESSION: Large pericardial effusion circumferentially around the heart this is amenable for pericardiocentesis. Large left-sided pleural effusion and moderate right-sided pleural effusion. This is amenable for thoracentesis. Anasarca CT was performed with one or more following dose reduction techniques: automated exposure control, adjustment of the mA and kv according to patient's size, or use of a iterative reconstruction technique.
[2025-04-30] MEDS ORDERED: COMPOUND IV REFRIGERATED 1 EACH IVSOLN MISC PRN (16:00)
[2025-04-30 16:12] LABS: FREE KAPPA LIGHT CHAINS,S 118.8 mg/L (3.3-19.4)
--- NOTE | 2025-04-30 19:06 | PN ---
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 BLE ulcers Poor dentition INTERVAL HISTORY: Patient is awake alert and oriented x3. Denies chest pain or SOB. Patient has been hemodynamically stable and afebrile. In no apparent respiratory distress. Mild pulmonary vascular congestion noted on chest x-ray and cardiomegaly. Pericardial chest tube in place. With output of 160 mL in the last 24 hours. Urine output of 1.4 L with a balance of-845 mL. White count is 12.3, slightly elevate likely reactive from high dose steroids, but similar to yesterday hemoglobin of 7.8 hematocrit 25.4 platelet count of 64 K. chemistry unremarkable similar to yesterday. REVIEW OF SYSTEMS: 12 point ROS reviewed with patient. Pertinent positives mentioned above. Otherwise negative. PHYSICAL EXAM: GENERAL: alert, weak, awake oriented x 3 HEENT: EOMI, Sclera non icteric, moist mucosa poor dentition NECK: Supple, no JVD, trachea midline LUNGS: Clear breath sounds bilaterally. No wheezes HEART: Regular rate and rhythm. Normal S1 and S2, without murmurs , pericardial window drained ABD: Abdomen soft, nontender. Bowel sounds present EXT: No clubbing cyanosis or edema NEURO: Alert and oriented to person, follows commands Vital Signs (last 8hr) Date Time Temp Pulse Resp B/P (MAP) Pulse Ox O2 Delivery O2 Flow Rate FiO2 04/30/25 16:00 97.9 85 20 130/75 97 Room Air 04/30/25 12:00 97.5 84 20 127/88 97 Room Air 21 LABS: Hematology Labs: Test 04/30/25 10:01 04/29/25 04:22 Range/Units White Blood Count 12.3 H 4.8-10.8 K/uL Red Blood Count 2.61 L 4.50-6.20 MIL/uL Hemoglobin 7.8 L 14.0-18.0 g/dL Hematocrit 25.4 L 42-54 % Mean Corpuscular Volume 97.3 79-99 fL Mean Corpuscular Hemoglobin 29.9 27.0-33.0 pg Mean Corpuscular Hemoglobin Concent 30.7 L 32.0-36.0 g/dL Red Cell Distribution Width 18.7 H 11.0-15.5 % Platelet Count 64 L 130-400 K/uL Mean Platelet Volume 7.5-10.5 fL Nucleated Red Blood Cells 0.2 H 0.0-0.19 % Immature Granulocyte % (Auto) 0.7 0-1 % Neutrophils (%) (Auto) 83.0 H 40.0-77.0 % Lymphocytes (%) (Auto) 12.5 L 21.0-51.0 % Monocytes (%) (Auto) 3.7 3.0-13.0 % Eosinophils (%) (Auto) 0.0 0.0-8.0 % Basophils (%) (Auto) 0.1 0.0-5.0 % Neutrophils # (Auto) 9.8 H 1.8-7.7 K/uL Lymphocytes # (Auto) 1.5 1.0-4.8 K/uL Monocytes # (Auto) 0.4 0.1-1.0 K/uL Eosinophils # (Auto) 0.00 0.00-0.70 K/uL Basophils # (Auto) 0.01 0.00-0.20 K/uL Absolute Immature Granulocyte (auto 0.08 0-1 K/uL Chemistry Labs: Test 04/30/25 15:19 04/30/25 04:55 04/29/25 04:22 Range/Units Whole Blood Glucose 132 H 70-110 MG/DL Sodium Level 136 136-145 mmol/L Potassium Level 4.0 3.5-5.1 mmol/L Chloride Level 104 101-111 mmol/L Carbon Dioxide Level 26 21-32 mmol/L Blood Urea Nitrogen 40 H 7-18 mg/dL Creatinine 1.3 0.5-1.3 mg/dL Glomerular Filtration Rate Calc 69 >90 mL/min Random Glucose 141 H 70-105 mg/dL Total Calcium 7.3 L 8.5-10.1 mg/dL Magnesium Level 2.10 1.80-2.40 mg/dL Total Bilirubin 0.3 # 0.2-1.0 mg/dL Aspartate Amino Transf (AST/SGOT) 39 H 10-37 U/L Alanine Aminotransferase (ALT/SGPT) 16 12-78 U/L Alkaline Phosphatase 105 50-136 U/L Total Protein 6.7 6.0-8.3 g/dL Albumin 1.4 L 3.5-5.0 g/dL DIAGNOSTICS / RADIOLOGY RESULTS: [ ] PLAN Follow CV surgery recommendations Follow cardiology recommendations Follow Hematology recommendations follow pericardial drain output Maintain O2 sats above 92% continue diuresing Lasix 20mg iv q 12h No plans for left side thoracentesis at this time. Patient is in no respiratory distress. Monitor electrolytes and replace accordingly Cardiac monitoring Decadron per hematology recs pulmonary toileting IS q 1 HR Atrovent q6hrs and acapella NEURO: Minimize central acting medications as possible. Maintain fall precautions, adequate lighting during the day PULMONARY: Supplemental 02 as needed. Maintain aspiration precautions at all times CARDIOVASCULAR: Follow hemodynamics. Vital signs per facility protocol GI & NUTRITION: Continue with nutritional support. Continue stool softeners and laxatives as needed. KIDNEYS & ELECTROLYTES: Strict monitoring of intake, output and overall fluid balance. Avoid nephrotoxic medications to the extent possible. Medications to be dosed according to renal function. Monitor electrolytes and replace as needed ENDOCRINE: Maintain blood glucose between 100-180 at all times. Hypoglycemia protocol in place INFECTIOUS DISEASE: Trend temperature, WBC and procalcitonin level Follow cultures, deescalate antibiotics as soon as possible. Panculture if new onset fever ONCOLOGY/HEMATOLOGY/COAGULATION: Monitor for s/s of bleeding Monitor hemoglobin, coagulation studies as needed SKIN: Pressure ulcer prevention per facility protocol Specialty mattress ORTHO/REHAB: Continue PT/OT Prophylaxis: Continue GI and DVT prophylaxis Code Status: Full Resuscitation Disposition: TBD Other: Total patient care time exceeds 35 minutes excluding all procedures. ATTESTATION BY PHYSICIAN I reviewed the documentation, medical decision making, and treatment plan as noted by the mid-level provider above. I agree with the findings and plan of care. Paco Ashley MD, [facility] Apr 30, 2025 19:06
[2025-05-01] VITALS (16 sets, daily range): BP systolic 132–146; BP diastolic 82–94; PULSE 72–95; RESP 18–20; TEMP 97.4–98.1; O2SAT 97–100
[2025-05-01 05:23] LABS: NUCLEATED RED BLOOD CELLS 0.2 % (0.0-0.19); PLATELET COUNT (AUTO) 68 K/uL (130-400); RED BLOOD CELL COUNT(AUTO) 2.69 MIL/uL (4.50-6.20); RED CELL DISTRIBUTION WIDTH 18.4 % (11.0-15.5); WHITE BLOOD COUNT (AUTO) 11.8 K/uL (4.8-10.8)
[2025-05-01 05:39] LABS: ASPARTATE AMINOTRANSFERASE 41.0 U/L (10-37); CREATININE 1.2 mg/dL (0.5-1.3); GLOMERULAR FILTR. RATE CALC 76.0 mL/min (>90); GLUCOSE,RANDOM 133.0 mg/dL (70-105); SODIUM SERUM 134.0 mmol/L (136-145); TOTAL PROTEIN, SERUM 6.3 g/dL (6.0-8.3); UREA NITROGEN, BLOOD 39.0 mg/dL (7-18)
--- NOTE | 2025-05-01 07:02 | PN ---
[facility] Cardiology Progress Note CARDIOLOGY PROGRESS NOTE MAY 01, 2025 Problems: 1. Large pericardial effusion with pre tamponade physiology by echo status post pericardial window 2. Left pleural effusion status post thoracentesis and chest tube placement 3. Elevated troponin with reduced ejection fraction of 30-35% suggesting p ossible myocarditis versus non ST-elevation MA 4. History of pustules on the lower extremities now healed with scars. 5. Thrombocytopenia 6. ORI positive and suspected systemic lupus Since admission the patient has had a chest tube placed for his large left pleural effusion and has undergone a pericardial window. Has been transferred out to telemetry. Pressure 140/90 heart rate in the 70s the patient is afebrile. White count is 11.8 hemoglobin 7.9 platelet count [id number]. [place] [id number]. Potassium 4.1 BUN 39 creatinine 1.2 down from 1.3 yesterday. Chest x- ray today shows slight improvement in the passive congestive changes in the lung field. He has diuresed 2.6 L in the last 24 hours. The patient had a cough which may have been respiratory related but has a precaution his lisinopril was stopped and he was switched over to losartan. The patient continues on dexamethasone famotidine IV furosemide losartan and metoprolol succinate. We will increase losartan dose to 50 mg daily better blood pressure control. Chest tube will be evaluated by surgery. We will require an ischemic workup as an outpatient. SANDHYA CARTAGENA MD May 01, 2025 07:02
--- NOTE | 2025-05-01 09:16 | PN ---
[facility] PROGRESS NOTE Date of Service: May 01, 2025 Time of Service: 09:13 SUBJECTIVE: [ ] This is a 44-year-old male was transfer from [facility] with Severe pericardial effusion early Tamponade physiology for further workup and treatment: s/p thoracentesis left sided with 950 ml on 04/28/25. Past medical history with untreated SLE and Sjogren syndrome (Positive Anti-SS-AAb, negative SS-B), and a history of low C3, C4, positive ORI, positive anti Titus antibody on 01/27/2024 who [place] [facility] [place] 4-6 [place] onset of shortness of breath and bilateral lower extremity edema. [place] workup revealed acute on chronic congestive heart failure. 2D Echo on 04/26/2025 revealed and LVEF of 25% with severe global hypokinesis, severe pericardial effusion with respiratory variation consistent with early tamponade physiology with RA collapse noted. 04/29/25 patient was seen earlier patient lying in bed appears chronically ill continue to experience units generalized swelling however he denied chest pain at this time. Primary nurse reports no events overnight. Waiting for CV recommendations. 04/30/25 s/p pericardial effusion removal 1 liter, fluid sent out analysis and pericardial tissue bx taken. Patient is being followed by Dr. Houston. And critical team we will follow the recommendations. 05/01/25 The patient was transition to PCCU, the patient is doing well, s/p pericardial window, continue with IV diuretic, denies chest pain or shortness for breath. REVIEW OF SYSTEMS CONSTITUTIONAL: Denies fevers, chills, or night sweats. No unintentional weight loss reported. NEUROLOGICAL: Denies headache, amaurosis fugax, motor weakness, sensory deficit, vertigo/spinning sensation, gait abnormalities, or tremors. ENT: No hearing loss, otalgia, otorrhea, rhinitis, rhinorrhea, hoarseness, or sore throat. CARDIOVASCULAR: Denies any exertional angina, dyspnea on exertion, orthopnea, paroxysmal nocturnal dyspnea, palpitations, life-threatening arrhythmias, claudication. PULMONARY: Denies any shortness of breath, cough, phlegm/sputum, hemoptysis, pleuritic chest pain. SLEEP: Denies morning headaches, daytime somnolence or napping. Denies difficulty falling asleep, staying asleep, waking from sleep. Denies knowledge of snoring. GASTROINTESTINAL: Denies any type of dysphagia to either liquids or solids. Denies nausea, vomiting, pyrosis, early satiety, abdominal pain, diarrhea, constipation, or changes in stool consistency or caliber. Denies coffee-ground emesis, hematemesis, hematochezia, or melanotic stools. GENITOURINARY: Denies frequency, urgency, nocturia, hematuria or incontinence (Storage/Irritative symptoms.) Low urinary stream, straining to void, urinary intermittency or hesitancy, splitting of the voiding stream, terminal dribbling. ENDOCRINOLOGIC: Denies polyuria, polydipsia, polyphagia or heat/cold intolerances. HEMATOLOGIC: Denies thrombophilia/previous clots, or coagulopathy/bleeding disorders. ONCOLOGIC: Denies personal history of malignancy. DERMATOLOGIC: Denies rashes or pruritus. PSYCHIATRIC: Denies any suicidal or homicidal ideation. Denies hallucinations. PHYSICAL EXAM GENERAL APPEARANCE: The patient is awake, alert, and oriented, in no acute cardiopulmonary distress. NEUROLOGICAL: Cranial nerves II-XII grossly intact. Motor is 5/5 in bilateral upper and lower extremities proximal to distal. No sensory deficits. HEENT: Face is symmetric. Pupils are equal and reactive. Extraocular movements are intact. NECK: Supple. No JVD. No thyromegaly. No submental, submandibular, pre- /postauricular, occipital or supraclavicular lymphadenopathy. CHEST: Normal chest expansion. No Telemetry. LUNGS: Absence of any rales, rhonchi or any wheezing. CARDIOVASCULAR: Regular. S1 and S2 normal. No appreciable rubs, murmurs or gallops. ABDOMEN: Soft, nontender, and nondistended. There is no rebound, voluntary guarding, or rigidity. : Deferred. No Henriquez. EXTREMITIES: Non-edematous and not cyanotic. No clubbing. Good capillary refill. SKIN: No skin breakdown. Vital Signs (last 8hr) Date Time Temp Pulse Resp B/P (MAP) Pulse Ox O2 Delivery O2 Flow Rate FiO2 05/01/25 07:00 97.3 72 20 139/92 100 Room Air 05/01/25 06:19 72 18 05/01/25 06:18 72 18 N/A Room Air 21 05/01/25 04:00 98.1 79 20 138/90 98 Room Air 05/01/25 02:23 97 Nasal Cannula* 2 28 LABS: Laboratory: Test 05/01/25 05:01 05/01/25 04:58 Range/Units White Blood Count 11.8 H 4.8-10.8 K/uL Red Blood Count 2.69 L 4.50-6.20 MIL/uL Hemoglobin 7.9 L 14.0-18.0 g/dL Hematocrit 26.3 L 42-54 % Mean Corpuscular Volume 97.8 79-99 fL Mean Corpuscular Hemoglobin 29.4 27.0-33.0 pg Mean Corpuscular Hemoglobin Concent 30.0 L 32.0-36.0 g/dL Red Cell Distribution Width 18.4 H 11.0-15.5 % Platelet Count 68 L 130-400 K/uL Mean Platelet Volume 7.5-10.5 fL Nucleated Red Blood Cells 0.2 H 0.0-0.19 % Sodium Level 134 L 136-145 mmol/L Potassium Level 4.1 3.5-5.1 mmol/L Chloride Level 103 101-111 mmol/L Carbon Dioxide Level 26 21-32 mmol/L Blood Urea Nitrogen 39 H 7-18 mg/dL Creatinine 1.2 0.5-1.3 mg/dL Glomerular Filtration Rate Calc 76 >90 mL/min Random Glucose 133 H 70-105 mg/dL Total Calcium 7.2 L 8.5-10.1 mg/dL Magnesium Level 2.00 1.80-2.40 mg/dL Total Bilirubin 0.3 0.2-1.0 mg/dL Aspartate Amino Transf (AST/SGOT) 41 H 10-37 U/L Alanine Aminotransferase (ALT/SGPT) 19 12-78 U/L Alkaline Phosphatase 113 50-136 U/L Total Protein 6.3 6.0-8.3 g/dL Albumin 1.4 L 3.5-5.0 g/dL Whole Blood Glucose 129 H 70-110 MG/DL Current Medications Medications (Trade) Dose Ordered Sig/Brittany Route PRN Reason Start Time Stop Time Status Last Admin Dose Admin Benzocaine (Cepacol Sore Throat Lozenge) 1 each Q4H PRN MM SORE THROAT 04/28/25 11:00 05/28/25 10:59 04/30/25 21:10 1 EACH Dexamethasone Sodium Phosphate (dexaMETHasone 4MG/ML 1ML VIAL) 40 mg Q24H IV 04/28/25 14:30 04/28/25 14:42 DC Dexamethasone Sodium Phosphate 40 mg/Sodium Chloride 50 ml @ 100 mls/hr Q24H IV 04/28/25 15:00 05/28/25 14:59 04/30/25 17:21 100 MLS/HR Famotidine (Pepcid 20mg Vial) 20 mg DAILY IV 04/29/25 09:00 05/29/25 08:59 05/01/25 08:30 20 MG Furosemide (LASix 20MG TAB) 20 mg BID@09,17 PO 05/01/25 09:00 05/31/25 08:59 05/01/25 08:30 20 MG Furosemide (LASix 20MG VIAL) 20 mg Q12H IV 04/29/25 15:00 05/01/25 07:04 DC 05/01/25 03:19 20 MG Ipratropium [place] (AtrovENT UD) 0.5 MG [id number] IH 05/01/25 00:00 05/31/25 00:00 05/01/25 06:18 0.5 MG Iron Sucrose (VenoFER) 200 mg Q24H IV 04/29/25 14:30 05/01/25 14:31 04/30/25 14:39 200 MG Lisinopril (Prinivil 2.5mg) 2.5 mg DAILY PO 04/29/25 09:00 04/30/25 06:43 DC 04/29/25 10:21 2.5 MG Losartan Potassium (CozAAR 25MG TAB) 25 mg DAILY PO 04/30/25 09:00 05/01/25 07:03 DC 04/30/25 08:29 25 MG Losartan Potassium (CozAAR 50 mg TAB) 50 mg DAILY PO 05/01/25 09:00 05/31/25 08:59 05/01/25 08:30 50 MG Magnesium Sulfate 50 ml @ 0 mls/hr PROTOCOL PRN IV low mag level 04/28/25 11:00 05/28/25 10:59 04/28/25 19:54 25 MLS/HR Metoprolol Succinate (TopROL XL) 12.5 mg DAILY PO 04/29/25 09:00 05/29/25 08:59 05/01/25 08:30 12.5 MG PE Potassium Chloride 100 ml @ 50 mls/hr AD PRN IV POTASSIUM PROTOCOL 04/28/25 11:00 04/29/25 07:35 DC 04/28/25 23:26 50 MLS/HR Potassium Chloride 100 ml @ 100 mls/hr AD PRN IV POTASSIUM PROTOCOL 04/28/25 11:00 05/28/25 10:59 Potassium Chloride (K-Dur/Klor-Con 20meq) 20 meq AD PRN PO POTASSIUM PROTOCOL 04/28/25 11:00 05/28/25 10:59 Potassium Chloride (KCl 10% Elixir 20meq/15ml) 20 meq AD PRN PO POTASSIUM PROTOCOL 04/28/25 11:00 05/28/25 10:59 DIAGNOSTICS / RADIOLOGY: [ ] ASSESSMENT: acute resp failure with hypoxemia POA NSTEMI POA acute on Chronic Heart failure EF 25% severe pericardial effusion with resp variation evidence by Echo POA 04/29/25 s/p pericardial effusion removal 1000 l with pericardial tissue bx. Larged Left pleural effusion s/p thoracentesis removal 950 ml ( 04/27/25) placed chest tube POA suspecting early tamponade physiology POA Anasarca lower extremity POA acute on Chronic anemia secondary to Lupus POA Thrombocytopenia secondary to Lupus POA electrolytes derangement: hypokalemia debilitated physical deconditioning POA severe protein calorie malnutrition POA chronic problems: autoimmune SLE Low C3 C4 Positive ORI, Anti-Titus Ab- tested 01/25/24 and secondary Sjogren syndrome Positive Anti SS-AAb Negative SS-B (01/27/24) bilateral lower extremity arterial ulcers PLAN: [ ] Admit:ICU condition: guarded Status:Full code IVF: [employer] In[employer], CV and critical Team hematology s/p Pericardial window, will follow CV post operative recommendation s/p thoracentesis ( large left plueral effusion) continue with chest tube. will monitor output Oxygen supplement to keep O2 sats above 92%, aspiration precautions head of the bed at [address] reyes started HIGH DOSE DEXAMETHSONE IV 40 MG DAILY will continue with IV iron Labs cbc, cmp, mag+ on going surveillance will monitor H/H and Platelets: transfuse to keep hgb above 7.0 and platelet above 40,0000; will monitor for acute bleeding. Oral supplements: IV iron, folic acid 1 mg and vitamin B12 1000 mcg daily Replace electrolytes as needed as per protocol to keep potassium above 4.0 magnesium 2.0. decubitus precaution: reposition every 2 hrs aggressive off loading: wound care consulted will follow recommendations. Supportive measures: DVT ppx, GI ppx PT services OOB to chair as tolerated all questions answered Supervising MD: Dr.Ellis Byers c/d This document was generated in part using voice recognition software, occasional wrong word or sound alike substitutions may have occurred due to the inherent limitations of voice recognition software. Read the chart carefully and recognize using context, where the substitutions have occurred. Although every effort was made to edit the content, vitamin manager and typing errors may occur ATTESTATION BY PHYSICIAN I have seen and examined the patient. I reviewed the documentation, medical decision making, and treatment plan as noted by the mid-level provider above. I agree with the findings and plan of care. PAXTON REYNOSO MD, [facility] May 01, 2025 09:15
--- NOTE | 2025-05-01 10:37 | PN ---
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 BLE ulcers Poor dentition INTERVAL HISTORY: Patient is awake alert and oriented x3. Currently on room air in no apparent respiratory distress. Patient has remained afebrile and hemodynamically stable. White count trending down 11.8 today hemoglobin 7 0.9/26.3 platelet count of 68 K. sodium of 134 BUN of 39 creatinine 1.2 and GFR 76 from yesterday. Checks x-ray continues to shows bilateral pleural effusions with left greater than right. He continues diuresing on furosemide p.o.. We will continue follow cardiology recommendations for now. Pericardial chest tube drained 15 mL. Continues on dexamethasone 40 mg Q 24 hours IV per Hematology. REVIEW OF SYSTEMS: General: No malaise or fever. Neurological: No fainting episodes or seizures. HEENT: No nasal congestion or nasal secretion. Respiratory: No cough, shortness of breath, or wheezing Cardiac: No chest pain or palpitations. Gastrointestinal: No vomiting or diarrhea. Genitourinary: No dysuria hematuria. Skin: No rashes or lesions. Hematological: No bruises or bleeding. Musculoskeletal: No joint pains or arthralgias. Psychiatric: No depression or panic attacks. PHYSICAL EXAM: GENERAL: alert, weak, awake oriented x 3 HEENT: EOMI, Sclera non icteric, moist mucosa poor dentition NECK: Supple, no JVD, trachea midline LUNGS: Clear breath sounds bilaterally. No wheezes pericardial drain. HEART: Regular rate and rhythm. Normal S1 and S2, without murmurs , pericardial window drained ABD: Abdomen soft, nontender. Bowel sounds present EXT: No clubbing cyanosis or edema NEURO: Alert and oriented to person, follows commands Vital Signs (last 8hr) Date Time Temp Pulse Resp B/P (MAP) Pulse Ox O2 Delivery O2 Flow Rate FiO2 05/01/25 07:00 97.3 72 20 139/92 100 Room Air 05/01/25 06:19 72 18 05/01/25 06:18 72 18 N/A Room Air 21 05/01/25 04:00 98.1 79 20 138/90 98 Room Air LABS: Hematology Labs: Test 05/01/25 05:01 Range/Units White Blood Count 11.8 H 4.8-10.8 K/uL Red Blood Count 2.69 L 4.50-6.20 MIL/uL Hemoglobin 7.9 L 14.0-18.0 g/dL Hematocrit 26.3 L 42-54 % Mean Corpuscular Volume 97.8 79-99 fL Mean Corpuscular Hemoglobin 29.4 27.0-33.0 pg Mean Corpuscular Hemoglobin Concent 30.0 L 32.0-36.0 g/dL Red Cell Distribution Width 18.4 H 11.0-15.5 % Platelet Count 68 L 130-400 K/uL Mean Platelet Volume 7.5-10.5 fL Nucleated Red Blood Cells 0.2 H 0.0-0.19 % Chemistry Labs: Test 05/01/25 05:01 05/01/25 04:58 Range/Units Sodium Level 134 L 136-145 mmol/L Potassium Level 4.1 3.5-5.1 mmol/L Chloride Level 103 101-111 mmol/L Carbon Dioxide Level 26 21-32 mmol/L Blood Urea Nitrogen 39 H 7-18 mg/dL Creatinine 1.2 0.5-1.3 mg/dL Glomerular Filtration Rate Calc 76 >90 mL/min Random Glucose 133 H 70-105 mg/dL Total Calcium 7.2 L 8.5-10.1 mg/dL Magnesium Level 2.00 1.80-2.40 mg/dL Total Bilirubin 0.3 0.2-1.0 mg/dL Aspartate Amino Transf (AST/SGOT) 41 H 10-37 U/L Alanine Aminotransferase (ALT/SGPT) 19 12-78 U/L Alkaline Phosphatase 113 50-136 U/L Total Protein 6.3 6.0-8.3 g/dL Albumin 1.4 L 3.5-5.0 g/dL Whole Blood Glucose 129 H 70-110 MG/DL DIAGNOSTICS / RADIOLOGY RESULTS: [ ] PLAN Follow CV surgery recommendations Follow cardiology recommendations Follow Hematology recommendations follow pericardial drain output 15ml/24 hours Maintain O2 sats above 92% Diuretic switch to p.o. per Cardiology. No plans for left side thoracentesis at this time. Patient is in no respiratory distress. Currently at room air Monitor electrolytes and replace accordingly Cardiac monitoring Decadron per hematology recs pulmonary toileting IS q 1 HR Atrovent q6hrs and acapella NEURO: Minimize central acting medications as possible. Maintain fall precautions, adequate lighting during the day PULMONARY: Supplemental 02 as needed. Maintain aspiration precautions at all times CARDIOVASCULAR: Follow hemodynamics. Vital signs per facility protocol GI & NUTRITION: Continue with nutritional support. Continue stool softeners and laxatives as needed. KIDNEYS & ELECTROLYTES: Strict monitoring of intake, output and overall fluid balance. Avoid nephrotoxic medications to the extent possible. Medications to be dosed according to renal function. Monitor electrolytes and replace as needed ENDOCRINE: Maintain blood glucose between 100-180 at all times. Hypoglycemia protocol in place INFECTIOUS DISEASE: Trend temperature, WBC and procalcitonin level Follow cultures, deescalate antibiotics as soon as possible. Panculture if new onset fever ONCOLOGY/HEMATOLOGY/COAGULATION: Monitor for s/s of bleeding Monitor hemoglobin, coagulation studies as needed SKIN: Pressure ulcer prevention per facility protocol Specialty mattress ORTHO/REHAB: Continue PT/OT Prophylaxis: Continue GI and DVT prophylaxis Code Status: Full Resuscitation Disposition: TBD Other: Total patient care time exceeds 35 minutes excluding all procedures. ATTESTATION BY PHYSICIAN I reviewed the documentation, medical decision making, and treatment plan as noted by the mid-level provider above. I agree with the findings and plan of care. Paco Ashley MD, [facility] May 01, 2025 10:37
--- NOTE | 2025-05-01 10:38 | HMCIMG ---
EXAM: CR Chest, single view. CLINICAL HISTORY: Hypoxic respiratory failure. COMPARISON: Prior chest radiograph dated April 29, 2025. FINDINGS: Mild cardiomegaly with bilateral pulmonary congestion. Mild bilateral pleural effusion, left intercostal drainage catheter in the right pleural cavity. No acute osseous abnormality. IMPRESSION: Mild cardiomegaly with bilateral pulmonary congestion. Mild bilateral pleural effusion, left more than right with adjacent lung atelectasis. No evidence of pneumothorax. Intercostal drainage catheter in the right pleural cavity. Compared to the prior study, there is no significant interval change. /[place]
--- NOTE | 2025-05-01 13:25 | PN ---
44 year old male patient with past medical history of SLE, Sjogren was transferred from [facility] to [facility] with diagnosis of Pericardial effusion and bilateral large pleural effusions . Rt side thoracentesis was done at [facility] . As per the patient he was diagnosed with SLE in December 2023 and was not taking any medications for the same . Patient presented to [place] with complaints of chest pain , generalized swelling and shortness of breath .Hematology was consulted with anemia and thrombocytopenia . Patient is evaluated at the bedside .He reports overall improvement in presenting symptoms however he continues to experience generalized swelling. he denies chest pain this time. Labs remarkable for anemia hemoglobin 8.5, thrombocytopenia platelets [id number], elevated troponin of 817, elevated AST 49 iron 37, TSAT 17.8 GFR 9 0 and BUN 28. Echocardiogram reveals severely dilated left ventricle with an ejection fraction of 30-35%, early right ventricular collapse and a large circumferential pericardial effusion consistent with early cardiac tamponade physiology. Patient was started on dexamethasone 40 mg IV. Patient also was found to have iron deficiency anemia as the patient was started on IV iron. It seems the patient is doing very well at this time. His energy improved. Patient have pericardial window with the patient have chest tube in place. PHYSICAL EXAM GENERAL: ALERT, ORIENTED; No APPEARS-NO ACUTE DISTRESS (MILD DISTRESS) EYES: SCLERAE ANICTERIC, PUPILS EQUAL/REACTIVE ENT/NECK: ORAL MUCOSA W/O LESIONS, OROPHARYNX IS CLEAR; No NECK SUPPLE W/O MASSES (BILATERAL CERVICAL LYMPHADENOPATHY +, LN FIRM CONSISTENCY) RESPIRATORY: There is chest tube in place.No LUNGS CLEAR-AUSC/PERCUS (BREATH SOUNDS DIMINISHED ON LEFT SIDE) CARDIOVASCULAR: REGULAR RATE, REGULAR RHYTHM (DISTANT HEART SOUNDS, PERICARDIAL RUB) GASTROINTESTINAL: ABDOMEN IS SOFT, DISTENDED, PALPABLE MASSES (SPLEEN TIP PALPABLE) HEMATOLOGY/LYMPHATIC: CERVICAL ADENOPATHY; No SUPRACLAVICULR ADENOPATHY, No AXILLARY ADENOPATHY; INGUINAL ADENOPATHY MUSCULOSKELETAL: No CYANOSIS-EXTREMETIES; CLUBBING, EDEMA SKIN/BREASTS: RASH (HEALED ARTERIAL ULCER SCARS BILATERAL LOWER EXTREMITY) NEUROLOGICAL: GROSSLY INTACT IMPRESSION Systemic lupus erythematosus , acute flare with multiorgan involvement Acute large pericardial effusion, Status post chest tube in place Acute bilateral pleural effusion 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 continue dexamethasone 40 mg daily while in the hospital. Then this patient will need tapering dose of prednisone to start 50 mg daily for 1 week then taper down 10 mg every week until stop. 2. This patient will benefit from IV iron, folic acid 1 mg daily and vitamin B12 1000 mcg daily. 3. Manual platelet count around 100 K-no platelet transfusion warranted at this time. We will recommend 1 unit of single donor platelet transfusion if necessary. 4. Generalized lymphadenopathy noted. We will request CT of abdomen and pelvis. Pending CT chest results. 5. Patient noted with bilateral lower extremity arterial ulcers which might indicate vasculitic component of underlying autoimmune disease 6. 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 We will ask for SPEP, UPEP and free light chain. If there is monoclonal protein we will do a bone marrow biopsy. 7. Patient had pericardial fluid status post chest tube in place after pericardial window. Continue care as per cardiothoracic surgeon Vitals/Labs Vital Signs Date Time Temp Pulse Resp B/P (MAP) Pulse Ox O2 Delivery O2 Flow Rate FiO2 05/01/25 11:37 95 18 05/01/25 11:36 N/A Room Air 21 05/01/25 11:00 97.5 146/86 99 05/01/25 08:00 2 Laboratory Tests 05/01/25 05:01 Medications Current Medications Magnesium Sulfate 50 ml @ 0 mls/hr PROTOCOL PRN IV Last administered on 04/28/25at 19:54; Start 04/28/25 at 11:00; Stop 05/28/25 at 10:59 Potassium Chloride 100 ml @ 100 mls/hr AD PRN IV; Start 04/28/25 at 11:00; Stop 05/28/25 at 10:59 Potassium Chloride 20 meq AD PRN PO; Start 04/28/25 at 11:00; Stop 05/28/25 at 10:59 Potassium Chloride 20 meq AD PRN PO; Start 04/28/25 at 11:00; Stop 05/28/25 at 10:59 Potassium Chloride 100 ml @ 50 mls/hr AD PRN IV Last administered on 04/28/25at 23:26; Start 04/28/25 at 11:00; Stop 04/29/25 at 07:35; Status DC Benzocaine 1 each Q4H PRN MM Last administered on 04/30/25at 21:10; Start 04/28/25 at 11:00; Stop 05/28/25 at 10:59 Dexamethasone Sodium Phosphate 40 mg Q24H IV; Start 04/28/25 at 14:30; Stop 04/28/25 at 14:42; Status DC Dexamethasone Sodium Phosphate 40 mg/Sodium Chloride 50 ml @ 100 mls/hr Q24H IV Last administered on 04/30/25at 17:21; Start 04/28/25 at 15:00; Stop 05/28/25 at 14:59 Cefazolin Sodium 1 gm STK-MED ONCE .ROUTE; Start 04/28/25 at 16:18; Stop 04/28/25 at 16:18; Status DC Dexamethasone Sodium Phosphate 10 mg STK-MED ONCE .ROUTE; Start 04/28/25 at 16:43; Stop 04/28/25 at 16:43; Status DC Ondansetron HCl 4 mg STK-MED ONCE .ROUTE; Start 04/28/25 at 16:43; Stop 04/28/25 at 16:43; Status DC Lidocaine HCl 100 mg STK-MED ONCE .ROUTE; Start 04/28/25 at 16:43; Stop 04/28/25 at 16:43; Status DC Succinylcholine Chloride 200 mg STK-MED ONCE .ROUTE; Start 04/28/25 at 16:44; Stop 04/28/25 at 16:44; Status DC Glycopyrrolate 1 mg STK-MED ONCE .ROUTE; Start 04/28/25 at 16:44; Stop 04/28/25 at 16:44; Status DC Fentanyl Citrate 100 mcg STK-MED ONCE .ROUTE; Start 04/28/25 at 16:44; Stop 04/28/25 at 16:45; Status DC Propofol 200 mg STK-MED ONCE IV; Start 04/28/25 at 16:45; Stop 04/28/25 at 16:45; Status DC Neostigmine Methylsulfate 10 mg STK-MED ONCE IV; Start 04/28/25 at 16:45; Stop 04/28/25 at 16:45; Status DC Rocuronium [place] 50 mg STK-MED ONCE .ROUTE; Start 04/28/25 at 16:45; Stop 04/28/25 at 16:45; Status DC Etomidate 20 mg STK-MED ONCE .ROUTE; Start 04/28/25 at 16:45; Stop 04/28/25 at 16:45; Status DC Norepinephrine Bitartrate 4 mg STK-MED ONCE IV; Start 04/28/25 at 16:46; Stop 04/28/25 at 16:46; Status DC Epinephrine HCl 1 mg STK-MED ONCE .ROUTE; Start 04/28/25 at 16:46; Stop 04/28/25 at 16:46; Status DC Cefazolin Sodium 2 gm STK-MED ONCE IVPB Last administered on 04/28/25at 17:04; Start 04/28/25 at 17:04; Stop 04/28/25 at 18:07; Status DC Famotidine 20 mg DAILY IV Last administered on 05/01/25at 08:30; Start 04/29/25 at 09:00; Stop 05/29/25 at 08:59 Metoprolol Succinate 12.5 mg DAILY PO Last administered on 05/01/25at 08:30; Start 04/29/25 at 09:00; Stop 05/29/25 at 08:59 Lisinopril 2.5 mg DAILY PO Last administered on 04/29/25at 10:21; Start 04/29/25 at 09:00; Stop 04/30/25 at 06:43; Status DC Iron Sucrose 200 mg DAILY ONCE IV; Start 04/30/25 at 09:00; Stop 04/29/25 at 14:05; Status DC Iron Sucrose 200 mg Q24H IV Last administered on 04/30/25at 14:39; Start 04/29/25 at 14:30; Stop 05/01/25 at 14:31 Furosemide 20 mg Q12H IV Last administered on 05/01/25at 03:19; Start 04/29/25 at 15:00; Stop 05/01/25 at 07:04; Status DC Losartan Potassium 25 mg DAILY PO Last administered on 04/30/25at 08:29; Start 04/30/25 at 09:00; Stop 05/01/25 at 07:03; Status DC Ipratropium [place] 0.5 MG [id number] IH Last administered on 05/01/25at 11:37; Start 05/01/25 at 00:00; Stop 05/31/25 at 00:00 Losartan Potassium 50 mg DAILY PO Last administered on 05/01/25at 08:30; Start 05/01/25 at 09:00; Stop 05/31/25 at 08:59 Furosemide 20 mg BID@09,17 PO Last administered on 05/01/25at 08:30; Start 05/01/25 at 09:00; Stop 05/31/25 at 08:59 JACKIE HAMMER MD May 01, 2025 13:25
[2025-05-01 14:12] LABS: ALBUMIN (IFE & ELECTROPHOR) 1.9 g/dL (2.9-4.4); ALBUMIN/GLOBULIN RATIO (IFE) 0.4 (0.7-1.7); ALPHA-1 (IFE & PEP) 0.3 g/dL (0.0-0.4); ALPHA-2 (IFE & PEP) 0.5 g/dL (0.4-1.0); BETA (IFE & ELP) 0.8 g/dL (0.7-1.3); GAMMA GLOBULINS (IFE & ELP) 3.2 g/dL (0.4-1.8); GLOBULIN TOTAL (IFE) 4.8 g/dL (2.2-3.9); IGA (IFE) 112 mg/dL (90-386); IGG (IMMUNOFIXATION) 3724 mg/dL (603-1613); IGM (IMMUNOFIXATION) 215 mg/dL (20-172); IMMUNOFIXATION RESULT Note: (.); M-SPIKE (IEP) Not Observed g/dL (Not Observed)
--- NOTE | 2025-05-01 17:06 | HMCIMG ---
EXAM: CR Chest, single view. CLINICAL HISTORY: Hypoxic respiratory failure. COMPARISON: Prior chest radiograph dated April 30, 2025. FINDINGS: Mild cardiomegaly with bilateral pulmonary congestion. Mild bilateral pleural effusion, left intercostal drainage catheter in the right pleural cavity. No acute osseous abnormality. There is more aeration of the lungs with improved perihilar pulmonary opacity suggestive of decreasing congestion. IMPRESSION: 1. Mild cardiomegaly with bilateral pulmonary congestion and mild bilateral pleural effusion. 2. Right pleural cavity intercostal drainage catheter. 3. Improved perihilar pulmonary opacity and increased lung aeration compared to prior study. 4. No acute osseous abnormality. /Gustavus
[2025-05-02] VITALS (13 sets, daily range): BP systolic 131–144; BP diastolic 85–100; PULSE 76–86; RESP 18–20; TEMP 97.7–98.4; O2SAT 99–100
[2025-05-02 03:48] LABS: NUCLEATED RED BLOOD CELLS 0.2 % (0.0-0.19); PLATELET COUNT (AUTO) 80 K/uL (130-400); RED BLOOD CELL COUNT(AUTO) 3.04 MIL/uL (4.50-6.20); RED CELL DISTRIBUTION WIDTH 18.1 % (11.0-15.5); WHITE BLOOD COUNT (AUTO) 13.0 K/uL (4.8-10.8)
[2025-05-02 04:05] LABS: CREATININE 1.3 mg/dL (0.5-1.3); GLOMERULAR FILTR. RATE CALC 69.0 mL/min (>90); GLUCOSE,RANDOM 199.0 mg/dL (70-105); SODIUM SERUM 134.0 mmol/L (136-145); UREA NITROGEN, BLOOD 45.0 mg/dL (7-18)
--- NOTE | 2025-05-02 08:07 | PN ---
[facility] PROGRESS NOTE Date of Service: May 02, 2025 Time of Service: 08:06 SUBJECTIVE: [ ] This is a 44-year-old male was transfer from [facility] with Severe pericardial effusion early Tamponade physiology for further workup and treatment: s/p thoracentesis left sided with 950 ml on 04/28/25. Past medical history with untreated SLE and Sjogren syndrome (Positive Anti-SS-AAb, negative SS-B), and a history of low C3, C4, positive ORI, positive anti Titus antibody on 01/27/2024 who presented to [facility] with a 4-6 week onset of shortness of breath and bilateral lower extremity edema. WARREN workup revealed acute on chronic congestive heart failure. 2D Echo on 04/26/2025 revealed and LVEF of 25% with severe global hypokinesis, severe pericardial effusion with respiratory variation consistent with early tamponade physiology with RA collapse noted. 04/29/25 patient was seen earlier patient lying in bed appears chronically ill continue to experience units generalized swelling however he denied chest pain at this time. Primary nurse reports no events overnight. Waiting for CV recommendations. 04/30/25 s/p pericardial effusion removal 1 liter, fluid sent out analysis and pericardial tissue bx taken. Patient is being followed by Dr. Houston. And critical team we will follow the recommendations. 05/01/25 The patient was transition to PCCU, the patient is doing well, s/p pericardial window, continue with IV diuretic, denies chest pain or shortness for breath. 05/02/25 patient is lying in bed patient continues with chest tube. Lower extremity edema have seen improvement patient was started on a low dose of furosemide per television cable installer's. We continue to monitor H&H and platelets. Patient denied chest pain or shortness for breath at this time. Close monitorin g. REVIEW OF SYSTEMS CONSTITUTIONAL: Denies fevers, chills, or night sweats. No unintentional weight loss reported. NEUROLOGICAL: Denies headache, amaurosis fugax, motor weakness, sensory deficit, vertigo/spinning sensation, gait abnormalities, or tremors. ENT: No hearing loss, otalgia, otorrhea, rhinitis, rhinorrhea, hoarseness, or sore throat. CARDIOVASCULAR: Denies any exertional angina, dyspnea on exertion, orthopnea, paroxysmal nocturnal dyspnea, palpitations, life-threatening arrhythmias, claudication. PULMONARY: Denies any shortness of breath, cough, phlegm/sputum, hemoptysis, pleuritic chest pain. SLEEP: Denies morning headaches, daytime somnolence or napping. Denies difficulty falling asleep, staying asleep, waking from sleep. Denies knowledge of snoring. GASTROINTESTINAL: Denies any type of dysphagia to either liquids or solids. Denies nausea, vomiting, pyrosis, early satiety, abdominal pain, diarrhea, constipation, or changes in stool consistency or caliber. Denies coffee-ground emesis, hematemesis, hematochezia, or melanotic stools. GENITOURINARY: Denies frequency, urgency, nocturia, hematuria or incontinence (Storage/Irritative symptoms.) Low urinary stream, straining to void, urinary intermittency or hesitancy, splitting of the voiding stream, terminal dribbling. ENDOCRINOLOGIC: Denies polyuria, polydipsia, polyphagia or heat/cold intolerances. HEMATOLOGIC: Denies thrombophilia/previous clots, or coagulopathy/bleeding disorders. ONCOLOGIC: Denies personal history of malignancy. DERMATOLOGIC: Denies rashes or pruritus. PSYCHIATRIC: Denies any suicidal or homicidal ideation. Denies hallucinations. PHYSICAL EXAM GENERAL APPEARANCE: The patient is awake, alert, and oriented, in no acute cardiopulmonary distress. NEUROLOGICAL: Cranial nerves II-XII grossly intact. Motor is 5/5 in bilateral upper and lower extremities proximal to distal. No sensory deficits. HEENT: Face is symmetric. Pupils are equal and reactive. Extraocular movements are intact. NECK: Supple. No JVD. No thyromegaly. No submental, submandibular, pre- /postauricular, occipital or supraclavicular lymphadenopathy. CHEST: Normal chest expansion. No Telemetry. LUNGS: Absence of any rales, rhonchi or any wheezing. CARDIOVASCULAR: Regular. S1 and S2 normal. No appreciable rubs, murmurs or gallops. ABDOMEN: Soft, nontender, and nondistended. There is no rebound, voluntary guarding, or rigidity. : Deferred. No Henriquez. EXTREMITIES: Non-edematous and not cyanotic. No clubbing. Good capillary refill. SKIN: No skin breakdown. Vital Signs (last 8hr) Date Time Temp Pulse Resp B/P (MAP) Pulse Ox O2 Delivery O2 Flow Rate FiO2 11/1/25 07:41 97.9 78 18 144/100 99 Room Air 05/02/25 06:46 77 18 N/A Room Air 21 05/02/25 06:46 76 18 05/02/25 04:14 98.4 86 18 141/91 98 Room Air LABS: Laboratory: Test 05/02/25 05:30 05/02/25 03:34 05/01/25 16:09 05/01/25 05:01 Range/Units Whole Blood Glucose 149 H 70-110 MG/DL White Blood Count 13.0 H 4.8-10.8 K/uL Red Blood Count 3.04 L 4.50-6.20 MIL/uL Hemoglobin 9.0 L 14.0-18.0 g/dL Hematocrit 29.5 L 42-54 % Mean Corpuscular Volume 97.0 79-99 fL Mean Corpuscular Hemoglobin 29.6 27.0-33.0 pg Mean Corpuscular Hemoglobin Concent 30.5 L 32.0-36.0 g/dL Red Cell Distribution Width 18.1 H 11.0-15.5 % Platelet Count 80 L 130-400 K/uL Mean Platelet Volume 7.5-10.5 fL Nucleated Red Blood Cells 0.2 H 0.0-0.19 % Sodium Level 134 L 136-145 mmol/L Potassium Level 4.0 3.5-5.1 mmol/L Chloride Level 103 101-111 mmol/L Carbon Dioxide Level 24 21-32 mmol/L Blood Urea Nitrogen 45 H 7-18 mg/dL Creatinine 1.3 0.5-1.3 mg/dL Glomerular Filtration Rate Calc 69 >90 mL/min Random Glucose 199 H 70-105 mg/dL Total Calcium 7.7 L 8.5-10.1 mg/dL Bedside Glucose Comment Notified Nurse Magnesium Level 2.00 1.80-2.40 mg/dL Total Bilirubin 0.3 0.2-1.0 mg/dL Aspartate Amino Transf (AST/SGOT) 41 H 10-37 U/L Alanine Aminotransferase (ALT/SGPT) 19 12-78 U/L Alkaline Phosphatase 113 50-136 U/L Total Protein 6.3 6.0-8.3 g/dL Albumin 1.4 L 3.5-5.0 g/dL Current Medications Medications (Trade) Dose Ordered Sig/Brittany Route PRN Reason Start Time Stop Time Status Last Admin Dose Admin Benzocaine (Cepacol Sore Throat Lozenge) 1 each Q4H PRN MM SORE THROAT 04/28/25 11:00 05/28/25 10:59 04/30/25 21:10 1 EACH Dexamethasone Sodium Phosphate (dexaMETHasone 4MG/ML 1ML VIAL) 40 mg Q24H IV 04/28/25 14:30 04/28/25 14:42 DC Dexamethasone Sodium Phosphate 40 mg/Sodium Chloride 50 ml @ 100 mls/hr Q24H IV 04/28/25 15:00 05/28/25 14:59 05/01/25 15:52 100 MLS/HR Famotidine (Pepcid 20mg Vial) 20 mg DAILY IV 04/29/25 09:00 05/29/25 08:59 05/01/25 08:30 20 MG Furosemide (LASix 20MG TAB) 20 mg BID@09,17 PO 05/01/25 09:00 05/31/25 08:59 05/01/25 15:53 20 MG Furosemide (LASix 20MG VIAL) 20 mg Q12H IV 04/29/25 15:00 05/01/25 07:04 DC 05/01/25 03:19 20 MG Ipratropium [place] (AtrovENT UD) 0.5 MG [id number] IH 05/01/25 00:00 05/31/25 00:00 05/02/25 06:44 0.5 MG Iron Sucrose (VenoFER) 200 mg Q24H IV 04/29/25 14:30 05/01/25 14:31 DC 05/01/25 15:20 200 MG Lisinopril (Prinivil 2.5mg) 2.5 mg DAILY PO 04/29/25 09:00 04/30/25 06:43 DC 04/29/25 10:21 2.5 MG Losartan Potassium (CozAAR 25MG TAB) 25 mg DAILY PO 04/30/25 09:00 05/01/25 07:03 DC 04/30/25 08:29 25 MG Losartan Potassium (CozAAR 50 mg TAB) 50 mg DAILY PO 05/01/25 09:00 05/31/25 08:59 05/01/25 08:30 50 MG Magnesium Sulfate 50 ml @ 0 mls/hr PROTOCOL PRN IV low mag level 04/28/25 11:00 05/28/25 10:59 04/28/25 19:54 25 MLS/HR Metoprolol Succinate (TopROL XL) 12.5 mg DAILY PO 04/29/25 09:00 05/29/25 08:59 05/01/25 08:30 12.5 MG PE Potassium Chloride 100 ml @ 50 mls/hr AD PRN IV POTASSIUM PROTOCOL 04/28/25 11:00 04/29/25 07:35 DC 04/28/25 23:26 50 MLS/HR Potassium Chloride 100 ml @ 100 mls/hr AD PRN IV POTASSIUM PROTOCOL 04/28/25 11:00 05/28/25 10:59 Potassium Chloride (K-Dur/Klor-Con 20meq) 20 meq AD PRN PO POTASSIUM PROTOCOL 04/28/25 11:00 05/28/25 10:59 Potassium Chloride (KCl 10% Elixir 20meq/15ml) 20 meq AD PRN PO POTASSIUM PROTOCOL 04/28/25 11:00 05/28/25 10:59 DIAGNOSTICS / RADIOLOGY: [ ] ASSESSMENT: acute resp failure with hypoxemia POA NSTEMI POA acute on Chronic Heart failure EF 25% severe pericardial effusion with resp variation evidence by Echo POA 04/29/25 s/p pericardial effusion removal 1000 l with pericardial tissue bx. Larged Left pleural effusion s/p thoracentesis removal 950 ml ( 04/27/25) placed chest tube POA suspecting early tamponade physiology POA Anasarca lower extremity POA acute on Chronic anemia secondary to Lupus POA Thrombocytopenia secondary to Lupus POA electrolytes derangement: hypokalemia debilitated physical deconditioning POA severe protein calorie malnutrition POA chronic problems: autoimmune SLE Low C3 C4 Positive ORI, Anti-Titus Ab- tested 01/25/24 and secondary Sjogren syndrome Positive Anti SS-AAb Negative SS-B (01/27/24) bilateral lower extremity arterial ulcers PLAN: [ ] Admit:ICU transition to PCCU condition: guarded Status:Full code IVF: [employer] Teacher, CV and critical Team hematology s/p Pericardial window, will follow CV post operative recommendation s/p thoracentesis ( large left plueral effusion) continue with chest tube. will monitor output Oxygen supplement to keep O2 sats above 92%, aspiration precautions head of the bed at [address] reyes started HIGH DOSE DEXAMETHSONE IV 40 MG DAILY will continue with IV iron Labs cbc, cmp, mag+ on going surveillance will monitor H/H and Platelets: transfuse to keep hgb above 7.0 and platelet above 40,0000; will monitor for acute bleeding. Oral supplements: IV iron, folic acid 1 mg and vitamin B12 1000 mcg daily Replace electrolytes as needed as per protocol to keep potassium above 4.0 magnesium 2.0. decubitus precaution: reposition every 2 hrs aggressive off loading: wound care consulted will follow recommendations. Supportive measures: DVT ppx, GI ppx PT services OOB to chair as tolerated all questions answered Supervising MD: Dr.Montes Bourne c/d This document was generated in part using voice recognition software, occasional wrong word or sound alike substitutions may have occurred due to the inherent limitations of voice recognition software. Read the chart carefully and recognize using context, where the substitutions have occurred. Although every effort was made to edit the content, maintenance leader and typing errors may occur ATTESTATION BY PHYSICIAN I have seen and examined the patient. I reviewed the documentation, medical decision making, and treatment plan as noted by the mid-level provider above. I agree with the findings and plan of care. Chato Rm IV, MD, [facility] May 02, 2025 08:07
--- NOTE | 2025-05-02 08:45 | PN ---
[facility] Cardiology Progress Note Cardiology progress note May 02, 2025 Problems: 1. Large pericardial effusion with pre tamponade physiology by echo status post pericardial window 2. Left pleural effusion status post thoracentesis and chest tube placement 3. Elevated troponin with reduced ejection fraction of 30-35% suggesting possible myocarditis versus non ST-elevation [place] 4. History of pustules on the lower extremities now healed with scars. 5. Thrombocytopenia immune mediated 6. Systemic lupus Blood pressure running 140/100 heart rate in the 70s the patient is afebrile. W aleida count 57618 hemoglobin 9 [place] [address]. Potassium 4.0 BUN 45 creatinine 1.3 up from 39 and 1.2 yesterday. Continues on dexamethasone IV furosemide losartan metoprolol succinate potassium protocol. We will plan on increasing losartan to 100 mg daily for better blood pressure control. We will discontinue intravenous diuretics and place on low-dose of furosemide. The patient will ultimately require outpatient evaluation for coronary disease. We are avoiding aspirin and clopidogrel at this time due to his recent pericardial effusion thrombocytopenia. Raphael is non ST-elevation [place] versus myocarditis we will add atorvastatin. SANDHYA CARTAGENA MD May 02, 2025 08:45
--- NOTE | 2025-05-02 11:02 | PN ---
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 BLE ulcers Poor dentition INTERVAL HISTORY: pt is awake alert and oriented x 3, no major overnight events. He is currently on RA in no apparent distress. minimal output 20 ml from pericardial drain. plans per CV surgery to remove drain today, white count 13 K likely reactive from steroids, anemia improving, platelets increasing. otherwise unremarkable. Chest XR with left side pleural effusion no indication for thoracentesis at this time due to pt in no resp distress saturating 99% ay room air. REVIEW OF SYSTEMS: General: No malaise or fever. Neurological: No fainting episodes or seizures. HEENT: No nasal congestion or nasal secretion. Respiratory: No cough, shortness of breath, or wheezing Cardiac: No chest pain or palpitations. Gastrointestinal: No vomiting or diarrhea. Genitourinary: No dysuria hematuria. Skin: No rashes or lesions. Hematological: No bruises or bleeding. Musculoskeletal: No joint pains or arthralgias. Psychiatric: No depression or panic attacks. PHYSICAL EXAM: GENERAL: alert, weak, awake oriented x 3 HEENT: EOMI, Sclera non icteric, moist mucosa poor dentition NECK: Supple, no JVD, trachea midline LUNGS: Clear breath sounds bilaterally. No wheezes pericardial drain. HEART: Regular rate and rhythm. Normal S1 and S2, without murmurs , pericardial window drained ABD: Abdomen soft, nontender. Bowel sounds present EXT: No clubbing cyanosis or edema NEURO: Alert and oriented to person, follows commands Vital Signs (last 8hr) Date Time Temp Pulse Resp B/P (MAP) Pulse Ox O2 Delivery O2 Flow Rate FiO2 05/02/25 08:25 99 Room Air* 0 05/02/25 07:41 97.9 78 18 144/100 99 Room Air 05/02/25 06:46 77 18 N/A Room Air 05/02/25 06:46 76 18 05/02/25 04:14 98.4 86 18 141/91 98 Room Air LABS: Hematology Labs: Test 05/02/25 03:34 Range/Units White Blood Count 13.0 H 4.8-10.8 K/uL Red Blood Count 3.04 L 4.50-6.20 MIL/uL Hemoglobin 9.0 L 14.0-18.0 g/dL Hematocrit 29.5 L 42-54 % Mean Corpuscular Volume 97.0 79-99 fL Mean Corpuscular Hemoglobin 29.6 27.0-33.0 pg Mean Corpuscular Hemoglobin Concent 30.5 L 32.0-36.0 g/dL Red Cell Distribution Width 18.1 H 11.0-15.5 % Platelet Count 80 L 130-400 K/uL Mean Platelet Volume 7.5-10.5 fL Nucleated Red Blood Cells 0.2 H 0.0-0.19 % Chemistry Labs: Test 05/02/25 10:53 05/02/25 03:34 05/01/25 16:09 05/01/25 05:01 Range/Units Whole Blood Glucose 140 H 70-110 MG/DL Sodium Level 134 L 136-145 mmol/L Potassium Level 4.0 3.5-5.1 mmol/L Chloride Level 103 101-111 mmol/L Carbon Dioxide Level 24 21-32 mmol/L Blood Urea Nitrogen 45 H 7-18 mg/dL Creatinine 1.3 0.5-1.3 mg/dL Glomerular Filtration Rate Calc 69 >90 mL/min Random Glucose 199 H 70-105 mg/dL Total Calcium 7.7 L 8.5-10.1 mg/dL Magnesium Level 2.00 1.80-2.40 mg/dL Bedside Glucose Comment Notified Nurse Total Bilirubin 0.3 0.2-1.0 mg/dL Aspartate Amino Transf (AST/SGOT) 41 H 10-37 U/L Alanine Aminotransferase (ALT/SGPT) 19 12-78 U/L Alkaline Phosphatase 113 50-136 U/L Total Protein 6.3 6.0-8.3 g/dL Albumin 1.4 L 3.5-5.0 g/dL DIAGNOSTICS / RADIOLOGY RESULTS: [ ] PLAN Follow CV surgery recommendations - plans for removal of pericardial drain today. Follow cardiology recommendations Follow Hematology recommendations follow pericardial drain output 20ml /24 hours Maintain O2 sats above 92% Diuretic switch to p.o. per Cardiology. No plans for left side thoracentesis at this time. Patient is in no respiratory distress. Currently at room air Monitor electrolytes and replace accordingly Cardiac monitoring Decadron per hematology recs pulmonary toileting IS q 1 HR Atrovent q6hrs and acapella NEURO: Minimize central acting medications as possible. Maintain fall precautions, adequate lighting during the day PULMONARY: Supplemental 02 as needed. Maintain aspiration precautions at all times CARDIOVASCULAR: Follow hemodynamics. Vital signs per facility protocol GI & NUTRITION: Continue with nutritional support. Continue stool softeners and laxatives as needed. KIDNEYS & ELECTROLYTES: Strict monitoring of intake, output and overall fluid balance. Avoid nephrotoxic medications to the extent possible. Medications to be dosed according to renal function. Monitor electrolytes and replace as needed ENDOCRINE: Maintain blood glucose between 100-180 at all times. Hypoglycemia protocol in place INFECTIOUS DISEASE: Trend temperature, WBC and procalcitonin level Follow cultures, deescalate antibiotics as soon as possible. Panculture if new onset fever ONCOLOGY/HEMATOLOGY/COAGULATION: Monitor for s/s of bleeding Monitor hemoglobin, coagulation studies as needed SKIN: Pressure ulcer prevention per facility protocol Specialty mattress ORTHO/REHAB: Continue PT/OT Prophylaxis: Continue GI and DVT prophylaxis Code Status: Full Resuscitation Disposition: TBD Other: Total patient care time exceeds 35 minutes excluding all procedures. ATTESTATION BY PHYSICIAN I have evaluated the patient chart, medical records, and spoke with appropriate staff. I reviewed the documentation, medical decision making, and treatment plan as noted by the mid-level provider above. I agree with the findings and plan of care. Dillon Maldonado MD, NELLY J AGACNP May 02, 2025 11:02
--- NOTE | 2025-05-02 11:45 | PN ---
TIME: 10:00 a.m. SUBJECTIVE: The patient is a 44-year-old gentleman, status post pericardial window, recovering well. No major events overnight. PHYSICAL EXAMINATION: NEUROLOGIC: Alert and oriented with no deficits. CARDIAC: S1, S2. Regular rate and rhythm. RESPIRATORY: Clear to auscultation bilaterally. SKIN: Incision is clean, dry, and intact. ASSESSMENT AND PLAN: 1. Pericardial effusion, status post pericardial window, recovering well, very minimal output. We will remove the drain today. 2. Acute blood loss anemia, status post surgery. The patient has no evidence of active bleeding. We will continue to monitor and transfuse if hemoglobin is less than 7. TID: [id number] RECEIPT: [id number]
--- NOTE | 2025-05-02 14:11 | PN ---
44 year old male patient with past medical history of SLE, Sjogren was transferred from [facility] to [facility] with diagnosis of Pericardial effusion and bilateral large pleural effusions . Rt side thoracentesis was done at [facility] . As per the patient he was diagnosed with SLE in December 2023 and was not taking any medications for the same . Patient presented to [place] with complaints of chest pain , generalized swelling and shortness of breath .Hematology was consulted with anemia and thrombocytopenia . Patient is evaluated at the bedside .He reports overall improvement in presenting symptoms however he continues to experience generalized swelling. he denies chest pain this time. Labs remarkable for anemia hemoglobin 8.5, thrombocytopenia platelets [id number], elevated troponin of 817, elevated AST 49 iron 37, TSAT 17.8 GFR 9 0 and BUN 28. Echocardiogram reveals severely dilated left ventricle with an ejection fraction of 30-35%, early right ventricular collapse and a large circumferential pericardial effusion consistent with early cardiac tamponade physiology. Patient was started on dexamethasone 40 mg IV. Patient also was found to have iron deficiency anemia as the patient was started on IV iron. It seems the patient is doing very well at this time. His energy improved. Patient have pericardial window with the patient have chest tube in place. PHYSICAL EXAM GENERAL: ALERT, ORIENTED; No APPEARS-NO ACUTE DISTRESS (MILD DISTRESS) EYES: SCLERAE ANICTERIC, PUPILS EQUAL/REACTIVE ENT/NECK: ORAL MUCOSA W/O LESIONS, OROPHARYNX IS CLEAR; No NECK SUPPLE W/O MASSES (BILATERAL CERVICAL LYMPHADENOPATHY +, LN FIRM CONSISTENCY) RESPIRATORY: There is chest tube in place.No LUNGS CLEAR-AUSC/PERCUS (BREATH SOUNDS DIMINISHED ON LEFT SIDE) CARDIOVASCULAR: REGULAR RATE, REGULAR RHYTHM (DISTANT HEART SOUNDS, PERICARDIAL RUB) GASTROINTESTINAL: ABDOMEN IS SOFT, DISTENDED, PALPABLE MASSES (SPLEEN TIP PALPABLE) HEMATOLOGY/LYMPHATIC: CERVICAL ADENOPATHY; No SUPRACLAVICULR ADENOPATHY, No AXILLARY ADENOPATHY; INGUINAL ADENOPATHY MUSCULOSKELETAL: No CYANOSIS-EXTREMETIES; CLUBBING, EDEMA SKIN/BREASTS: RASH (HEALED ARTERIAL ULCER SCARS BILATERAL LOWER EXTREMITY) NEUROLOGICAL: GROSSLY INTACT IMPRESSION Systemic lupus erythematosus , acute flare with multiorgan involvement Acute large pericardial effusion, Status post chest tube in place Acute bilateral pleural effusion 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 continue dexamethasone 40 mg daily while in the hospital. Then this patient will need tapering dose of prednisone to start 50 mg daily for 1 week then taper down 10 mg every week until stop. 2. This patient will benefit from IV iron, folic acid 1 mg daily and vitamin B12 1000 mcg daily. 3. Manual platelet count around 100 K-no platelet transfusion warranted at this time. We will recommend 1 unit of single donor platelet transfusion if necessary. 4. Generalized lymphadenopathy noted. We will request CT of abdomen and pelvis. Pending CT chest results. 5. Patient noted with bilateral lower extremity arterial ulcers which might indicate vasculitic component of underlying autoimmune disease 6. 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 We will ask for SPEP, UPEP and free light chain. If there is monoclonal protein we will do a bone marrow biopsy. 7. Patient had pericardial fluid status post chest tube in place after pericardial window. Continue care as per cardiothoracic surgeon Vitals/Labs Vital Signs Date Time Temp Pulse Resp B/P (MAP) Pulse Ox O2 Delivery O2 Flow Rate FiO2 05/02/25 11:27 97.7 79 18 100 Room Air 05/02/25 11:03 21 05/02/25 08:25 0 Laboratory Tests 05/02/25 03:34 Medications Current Medications Magnesium Sulfate 50 ml @ 0 mls/hr PROTOCOL PRN IV Last administered on 04/28/25at 19:54; Start 04/28/25 at 11:00; Stop 05/28/25 at 10:59 Potassium Chloride 100 ml @ 100 mls/hr AD PRN IV; Start 04/28/25 at 11:00; Stop 05/28/25 at 10:59 Potassium Chloride 20 meq AD PRN PO; Start 04/28/25 at 11:00; Stop 05/28/25 at 10:59 Potassium Chloride 20 meq AD PRN PO; Start 04/28/25 at 11:00; Stop 05/28/25 at 10:59 Potassium Chloride 100 ml @ 50 mls/hr AD PRN IV Last administered on 04/28/25at 23:26; Start 04/28/25 at 11:00; Stop 04/29/25 at 07:35; Status DC Benzocaine 1 each Q4H PRN MM Last administered on 04/30/25at 21:10; Start 04/28/25 at 11:00; Stop 05/28/25 at 10:59 Dexamethasone Sodium Phosphate 40 mg Q24H IV; Start 04/28/25 at 14:30; Stop 04/28/25 at 14:42; Status DC Dexamethasone Sodium Phosphate 40 mg/Sodium Chloride 50 ml @ 100 mls/hr Q24H IV Last administered on 05/01/25at 15:52; Start 04/28/25 at 15:00; Stop 05/28/25 at 14:59 Cefazolin Sodium 1 gm STK-MED ONCE .ROUTE; Start 04/28/25 at 16:18; Stop 04/28/25 at 16:18; Status DC Dexamethasone Sodium Phosphate 10 mg STK-MED ONCE .ROUTE; Start 04/28/25 at 16:43; Stop 04/28/25 at 16:43; Status DC Ondansetron HCl 4 mg STK-MED ONCE .ROUTE; Start 04/28/25 at 16:43; Stop 04/28/25 at 16:43; Status DC Lidocaine HCl 100 mg STK-MED ONCE .ROUTE; Start 04/28/25 at 16:43; Stop 04/28/25 at 16:43; Status DC Succinylcholine Chloride 200 mg STK-MED ONCE .ROUTE; Start 04/28/25 at 16:44; Stop 04/28/25 at 16:44; Status DC Glycopyrrolate 1 mg STK-MED ONCE .ROUTE; Start 04/28/25 at 16:44; Stop 04/28/25 at 16:44; Status DC Fentanyl Citrate 100 mcg STK-MED ONCE .ROUTE; Start 04/28/25 at 16:44; Stop 04/28/25 at 16:45; Status DC Propofol 200 mg STK-MED ONCE IV; Start 04/28/25 at 16:45; Stop 04/28/25 at 16:45; Status DC Neostigmine Methylsulfate 10 mg STK-MED ONCE IV; Start 04/28/25 at 16:45; Stop 04/28/25 at 16:45; Status DC Rocuronium [place] 50 mg STK-MED ONCE .ROUTE; Start 04/28/25 at 16:45; Stop 04/28/25 at 16:45; Status DC Etomidate 20 mg STK-MED ONCE .ROUTE; Start 04/28/25 at 16:45; Stop 04/28/25 at 16:45; Status DC Norepinephrine Bitartrate 4 mg STK-MED ONCE IV; Start 04/28/25 at 16:46; Stop 04/28/25 at 16:46; Status DC Epinephrine HCl 1 mg STK-MED ONCE .ROUTE; Start 04/28/25 at 16:46; Stop 04/28/25 at 16:46; Status DC Cefazolin Sodium 2 gm STK-MED ONCE IVPB Last administered on 04/28/25at 17:04; Start 04/28/25 at 17:04; Stop 04/28/25 at 18:07; Status DC Famotidine 20 mg DAILY IV Last administered on 05/01/25at 08:30; Start 04/29/25 at 09:00; Stop 05/02/25 at 08:44; Status DC Metoprolol Succinate 12.5 mg DAILY PO Last administered on 05/02/25at 09:12; Start 04/29/25 at 09:00; Stop 05/29/25 at 08:59 Lisinopril 2.5 mg DAILY PO Last administered on 04/29/25at 10:21; Start 04/29/25 at 09:00; Stop 04/30/25 at 06:43; Status DC Iron Sucrose 200 mg DAILY ONCE IV; Start 04/30/25 at 09:00; Stop 04/29/25 at 14:05; Status DC Iron Sucrose 200 mg Q24H IV Last administered on 05/01/25at 15:20; Start 04/29/25 at 14:30; Stop 05/01/25 at 14:31; Status DC Furosemide 20 mg Q12H IV Last administered on 05/01/25at 03:19; Start 04/29/25 at 15:00; Stop 05/01/25 at 07:04; Status DC Losartan Potassium 25 mg DAILY PO Last administered on 04/30/25at 08:29; Start 04/30/25 at 09:00; Stop 05/01/25 at 07:03; Status DC Ipratropium [place] 0.5 MG [id number] IH Last administered on 05/02/25at 11:01; Start 05/01/25 at 00:00; Stop 05/31/25 at 00:00 Losartan Potassium 50 mg DAILY PO Last administered on 05/01/25at 08:30; Start 05/01/25 at 09:00; Stop 05/02/25 at 08:44; Status DC Furosemide 20 mg BID@09,17 PO Last administered on 05/01/25at 15:53; Start 05/01/25 at 09:00; Stop 05/02/25 at 08:44; Status DC Furosemide 20 mg DAILY PO Last administered on 05/02/25at 09:12; Start 05/02/25 at 09:00; Stop 05/31/25 at 08:59 Losartan Potassium 100 mg DAILY PO Last administered on 05/02/25at 09:11; Start 05/02/25 at 09:00; Stop 06/01/25 at 08:59 JACKIE HAMMER MD May 02, 2025 14:10
--- NOTE | 2025-05-02 17:00 | NUR ---
CHEST TUBE REMOVED. TOLERATED WELL. DRESSING APPLIED.
[2025-05-03] VITALS (11 sets, daily range): BP systolic 113–150; BP diastolic 61–95; PULSE 68–130; RESP 16–25; TEMP 97.6–98.7; O2SAT 94–100
[2025-05-03 04:29] LABS: IMMATURE GRANULOCYTE ABSOLUTE 0.13 K/uL (0-1); NUCLEATED RED BLOOD CELLS 0.2 % (0.0-0.19); PLATELET COUNT (AUTO) 79 K/uL (130-400); RED BLOOD CELL COUNT(AUTO) 2.68 MIL/uL (4.50-6.20); RED CELL DISTRIBUTION WIDTH 18.3 % (11.0-15.5); WHITE BLOOD COUNT (AUTO) 12.6 K/uL (4.8-10.8)
[2025-05-03 04:43] LABS: ASPARTATE AMINOTRANSFERASE 55.0 U/L (10-37); CREATININE 1.1 mg/dL (0.5-1.3); GLOMERULAR FILTR. RATE CALC 85.0 mL/min (>90); GLUCOSE,RANDOM 135.0 mg/dL (70-105); SODIUM SERUM 136.0 mmol/L (136-145); TOTAL PROTEIN, SERUM 6.2 g/dL (6.0-8.3); UREA NITROGEN, BLOOD 42.0 mg/dL (7-18)
--- NOTE | 2025-05-03 07:38 | HMCIMG ---
EXAM: CR Chest, 1 View. CLINICAL HISTORY: Hypoxic respiratory failure. COMPARISON: CR ??? CHEST 1VW ??? 04/30/2025. Compared with the prior study, findings remain stable. FINDINGS: Lungs: Stable pulmonary vascular congestion. No new infiltrate or consolidation. Aeration of both lungs remains adequate. Pleural spaces: Stable mild bilateral pleural effusions. No pneumothorax. Mediastinum: Mild cardiomegaly, unchanged. Mediastinal contours preserved. Intercostal drainage catheter remains in satisfactory position within the right pleural cavity. Bones: No acute osseous abnormality. IMPRESSION: * Stable mild cardiomegaly with pulmonary vascular congestion and mild bilateral pleural effusions. * Intercostal drainage catheter in satisfactory position within the right pleural cavity. * No new infiltrate, pneumothorax, or acute pulmonary abnormality. /Logan
--- NOTE | 2025-05-03 07:58 | PN ---
[facility] PROGRESS NOTE Date of Service: May 03, 2025 Time of Service: 07:58 SUBJECTIVE: [ ] This is a 44-year-old male was transfer from [facility] with Severe pericardial effusion early Tamponade physiology for further workup and treatment: s/p thoracentesis left sided with 950 ml on 04/28/25. Past medical history with untreated SLE and Sjogren syndrome (Positive Anti-SS-AAb, negative SS-B), and a history of low C3, C4, positive ORI, positive anti Titus antibody on 01/27/2024 who presented [place] [facility] with a 4-6 week onset of shortness of breath and bilateral lower extremity edema. TAIBAN workup revealed acute on chronic congestive heart failure. 2D Echo on 04/26/2025 revealed and LVEF of 25% with severe global hypokinesis, severe pericardial effusion with respiratory variation consistent with early tamponade physiology with RA collapse noted. 04/29/25 patient was seen earlier patient lying in bed appears chronically ill continue to experience units generalized swelling however he denied chest pain at this time. Primary nurse reports no events overnight. Waiting for CV recommendations. 04/30/25 s/p pericardial effusion removal 1 liter, fluid sent out analysis and pericardial tissue bx taken. Patient is being followed by Dr. Houston. And critical team we will follow the recommendations. 05/01/25 The patient was transition to PCCU, the patient is doing well, s/p pericardial window, continue with IV diuretic, denies chest pain or shortness for breath. 05/02/25 patient is lying in bed patient continues with chest tube. Lower extremity edema have seen improvement patient was started on a low dose of furosemide per environmental designer's. We continue to monitor H&H and platelets. Patient denied chest pain or shortness for breath at this time. Close monitorin g. 05/03/25 patient was seen patient is sitting on the edge of the bed traces of edema to lower extremities. He is currently on room air no distress noted to complete full sentences. Patient can with physical therapy he became tachycardia when patient was ambulating in hallways with PT.. Chest tube was removed yesterday. Primary nurse reports no events overnight continue to mon itor H&H and platelets currently stable. REVIEW OF SYSTEMS CONSTITUTIONAL: Denies fevers, chills, or night sweats. No unintentional weight loss reported. NEUROLOGICAL: Denies headache, amaurosis fugax, motor weakness, sensory deficit, vertigo/spinning sensation, gait abnormalities, or tremors. ENT: No hearing loss, otalgia, otorrhea, rhinitis, rhinorrhea, hoarseness, or sore throat. CARDIOVASCULAR: Denies any exertional angina, dyspnea on exertion, orthopnea, paroxysmal nocturnal dyspnea, palpitations, life-threatening arrhythmias, claudication. PULMONARY: Denies any shortness of breath, cough, phlegm/sputum, hemoptysis, pleuritic chest pain. SLEEP: Denies morning headaches, daytime somnolence or napping. Denies difficulty falling asleep, staying asleep, waking from sleep. Denies knowledge of snoring. GASTROINTESTINAL: Denies any type of dysphagia to either liquids or solids. Denies nausea, vomiting, pyrosis, early satiety, abdominal pain, diarrhea, constipation, or changes in stool consistency or caliber. Denies coffee-ground emesis, hematemesis, hematochezia, or melanotic stools. GENITOURINARY: Denies frequency, urgency, nocturia, hematuria or incontinence (Storage/Irritative symptoms.) Low urinary stream, straining to void, urinary intermittency or hesitancy, splitting of the voiding stream, terminal dribbling. ENDOCRINOLOGIC: Denies polyuria, polydipsia, polyphagia or heat/cold intolerances. HEMATOLOGIC: Denies thrombophilia/previous clots, or coagulopathy/bleeding disorders. ONCOLOGIC: Denies personal history of malignancy. DERMATOLOGIC: Denies rashes or pruritus. PSYCHIATRIC: Denies any suicidal or homicidal ideation. Denies hallucinations. PHYSICAL EXAM GENERAL APPEARANCE: The patient is awake, alert, and oriented, in no acute cardiopulmonary distress. NEUROLOGICAL: Cranial nerves II-XII grossly intact. Motor is 5/5 in bilateral upper and lower extremities proximal to distal. No sensory deficits. HEENT: Face is symmetric. Pupils are equal and reactive. Extraocular movements are intact. NECK: Supple. No JVD. No thyromegaly. No submental, submandibular, pre- /postauricular, occipital or supraclavicular lymphadenopathy. CHEST: Normal chest expansion. No Telemetry. LUNGS: Absence of any rales, rhonchi or any wheezing. CARDIOVASCULAR: Regular. S1 and S2 normal. No appreciable rubs, murmurs or gallops. ABDOMEN: Soft, nontender, and nondistended. There is no rebound, voluntary guarding, or rigidity. : Deferred. No Henriquez. EXTREMITIES: Non-edematous and not cyanotic. No clubbing. Good capillary refill. SKIN: No skin breakdown. Vital Signs (last 8hr) Date Time Temp Pulse Resp B/P (MAP) Pulse Ox O2 Delivery O2 Flow Rate FiO2 05/03/25 07:52 97.5 68 16 150/90 97 Room Air 05/03/25 06:41 70 18 05/03/25 06:41 70 18 N/A Room Air 21 05/03/25 03:10 98.1 75 20 113/61 100 Room Air LABS: Laboratory: Test 05/03/25 05:09 05/03/25 03:47 05/01/25 16:09 Range/Units Whole Blood Glucose 115 H 70-110 MG/DL White Blood Count 12.6 H 4.8-10.8 K/uL Red Blood Count 2.68 L 4.50-6.20 MIL/uL Hemoglobin 7.8 L 14.0-18.0 g/dL Hematocrit 26.8 L 42-54 % Mean Corpuscular Volume 100.0 H 79-99 fL Mean Corpuscular Hemoglobin 29.1 27.0-33.0 pg Mean Corpuscular Hemoglobin Concent 29.1 L 32.0-36.0 g/dL Red Cell Distribution Width 18.3 H 11.0-15.5 % Platelet Count 79 L 130-400 K/uL Mean Platelet Volume 7.5-10.5 fL Immature Granulocyte % (Auto) 1.0 0-1 % Neutrophils (%) (Auto) 80.9 H 40.0-77.0 % Lymphocytes (%) (Auto) 14.8 L 21.0-51.0 % Monocytes (%) (Auto) 3.2 3.0-13.0 % Eosinophils (%) (Auto) 0.0 0.0-8.0 % Basophils (%) (Auto) 0.1 0.0-5.0 % Neutrophils # (Auto) 10.2 H 1.8-7.7 K/uL Lymphocytes # (Auto) 1.9 1.0-4.8 K/uL Monocytes # (Auto) 0.4 0.1-1.0 K/uL Eosinophils # (Auto) 0.00 0.00-0.70 K/uL Basophils # (Auto) 0.01 0.00-0.20 K/uL Absolute Immature Granulocyte (auto 0.13 0-1 K/uL Nucleated Red Blood Cells 0.2 H 0.0-0.19 % Sodium Level 136 136-145 mmol/L Potassium Level 3.8 3.5-5.1 mmol/L Chloride Level 102 101-111 mmol/L Carbon Dioxide Level 27 21-32 mmol/L Blood Urea Nitrogen 42 H 7-18 mg/dL Creatinine 1.1 0.5-1.3 mg/dL Glomerular Filtration Rate Calc 85 >90 mL/min Random Glucose 135 H 70-105 mg/dL Total Calcium 7.5 L 8.5-10.1 mg/dL Magnesium Level 1.90 1.80-2.40 mg/dL Total Bilirubin 0.3 0.2-1.0 mg/dL Aspartate Amino Transf (AST/SGOT) 55 H 10-37 U/L Alanine Aminotransferase (ALT/SGPT) 40 12-78 U/L Alkaline Phosphatase 184 H 50-136 U/L Total Protein 6.2 6.0-8.3 g/dL Albumin 1.5 L 3.5-5.0 g/dL Bedside Glucose Comment Notified Nurse Current Medications Medications (Trade) Dose Ordered Sig/Brittany Route PRN Reason Start Time Stop Time Status Last Admin Dose Admin Benzocaine (Cepacol Sore Throat Lozenge) 1 each Q4H PRN MM SORE THROAT 04/28/25 11:00 05/28/25 10:59 04/30/25 21:10 1 EACH Dexamethasone Sodium Phosphate (dexaMETHasone 4MG/ML 1ML VIAL) 40 mg Q24H IV 04/28/25 14:30 04/28/25 14:42 DC Dexamethasone Sodium Phosphate 40 mg/Sodium Chloride 50 ml @ 100 mls/hr Q24H IV 04/28/25 15:00 05/28/25 14:59 05/02/25 16:28 100 MLS/HR Famotidine (Pepcid 20mg Vial) 20 mg DAILY IV 04/29/25 09:00 05/02/25 08:44 DC 05/01/25 08:30 20 MG Furosemide (LASix 20MG TAB) 20 mg BID@09,17 PO 05/01/25 09:00 05/02/25 08:44 DC 05/01/25 15:53 20 MG Furosemide (LASix 20MG TAB) 20 mg DAILY PO 05/02/25 09:00 05/31/25 08:59 05/02/25 09:12 20 MG Furosemide (LASix 20MG VIAL) 20 mg Q12H IV 04/29/25 15:00 05/01/25 07:04 DC 05/01/25 03:19 20 MG Ipratropium Marshall (AtrovENT UD) 0.5 MG [id number] IH 05/01/25 00:00 05/31/25 00:00 05/03/25 06:38 0.5 MG Iron Sucrose (VenoFER) 200 mg Q24H IV 04/29/25 14:30 05/01/25 14:31 DC 05/01/25 15:20 200 MG Lisinopril (Prinivil 2.5mg) 2.5 mg DAILY PO 04/29/25 09:00 04/30/25 06:43 DC 04/29/25 10:21 2.5 MG Losartan Potassium (CozAAR 100MG TAB) 100 mg DAILY PO 05/02/25 09:00 06/01/25 08:59 05/02/25 09:11 100 MG Losartan Potassium (CozAAR 25MG TAB) 25 mg DAILY PO 04/30/25 09:00 05/01/25 07:03 DC 04/30/25 08:29 25 MG Losartan Potassium (CozAAR 50 mg TAB) 50 mg DAILY PO 05/01/25 09:00 05/02/25 08:44 DC 05/01/25 08:30 50 MG Magnesium Sulfate 50 ml @ 0 mls/hr PROTOCOL PRN IV low mag level 04/28/25 11:00 05/28/25 10:59 04/28/25 19:54 25 MLS/HR Metoprolol Succinate (TopROL XL) 12.5 mg DAILY PO 04/29/25 09:00 05/29/25 08:59 05/02/25 09:12 12.5 MG Potassium Chloride 100 ml @ 50 mls/hr AD PRN IV POTASSIUM PROTOCOL 04/28/25 11:00 04/29/25 07:35 DC 04/28/25 23:26 50 MLS/HR Potassium Chloride 100 ml @ 100 mls/hr AD PRN IV POTASSIUM PROTOCOL 04/28/25 11:00 05/28/25 10:59 Potassium Chloride (K-Dur/Klor-Con 20meq) 20 meq AD PRN PO POTASSIUM PROTOCOL 04/28/25 11:00 05/28/25 10:59 Potassium Chloride (KCl 10% Elixir 20meq/15ml) 20 meq AD PRN PO POTASSIUM PROTOCOL 04/28/25 11:00 05/28/25 10:59 DIAGNOSTICS / RADIOLOGY: [ ] ASSESSMENT: acute resp failure with hypoxemia POA NSTEMI POA acute on Chronic Heart failure EF 25% severe pericardial effusion with resp variation evidence by Echo POA 04/29/25 s/p pericardial effusion removal 1000 l with pericardial tissue bx. Larged Left pleural effusion s/p thoracentesis removal 950 ml ( 04/27/25) placed chest tube POA chest pain 05/02/2025 suspecting early tamponade physiology POA Anasarca lower extremity POA improving acute on Chronic anemia secondary to Lupus POA Thrombocytopenia secondary to Lupus POA electrolytes derangement: hypokalemia debilitated physical deconditioning POA severe protein calorie malnutrition POA chronic problems: autoimmune SLE Low C3 C4 Positive ORI, Anti-Titus Ab- tested 01/25/24 and secondary Sjogren syndrome Positive Anti SS-AAb Negative SS-B (01/27/24) bilateral lower extremity arterial ulcers PLAN: [ ] Admit:ICU transition to PCCU condition: guarded Status:Full code IVF: [employer], CV and critical Team hematology s/p Pericardial window, will follow CV post operative recommendation s/p thoracentesis ( large left plueral effusion) removed yesterday chest tube Chest XR with left side pleural effusion no indication for thoracentesis at this time due to pt in no resp distress saturating 99% ay room air. Oxygen supplement to keep O2 sats above 92%, aspiration precautions head of the bed at [address] reyes started HIGH DOSE DEXAMETHSONE IV 40 MG DAILY will continue with IV iron Labs cbc, cmp, mag+ on going surveillance will monitor H/H and Platelets: transfuse to keep hgb above 7.0 and platelet above 40,0000; will monitor for acute bleeding. Oral supplements: IV iron, folic acid 1 mg and vitamin B12 1000 mcg daily Replace electrolytes as needed as per protocol to keep potassium above 4.0 magnesium 2.0. decubitus precaution: reposition every 2 hrs aggressive off loading: wound care consulted will follow recommendations. Supportive measures: DVT ppx, GI ppx PT services OOB to chair as tolerated all questions answered Supervising MD: Dr.Montes Bourne c/d This document was generated in part using voice recognition software, occasional wrong word or sound alike substitutions may have occurred due to the inherent limitations of voice recognition software. Read the chart carefully and recognize using context, where the substitutions have occurred. Although every effort was made to edit the content, engraver tender and typing errors may occur ATTESTATION BY PHYSICIAN I have seen and examined the patient. I reviewed the documentation, medical decision making, and treatment plan as noted by the mid-level provider above. I agree with the findings and plan of care. Chato Rm IV, MD, [facility] May 03, 2025 07:58
--- NOTE | 2025-05-03 08:46 | PN ---
[facility] Cardiology Progress Note CARDIOLOGY PROGRESS NOTE MAY 03, [address] Chan Problems: 1. Large pericardial effusion with pre tamponade physiology by echo status post pericardial window 2. Left pleural effusion status post thoracentesis and chest tube placement 3. Elevated troponin with reduced ejection fraction of 30-35% suggesting possible myocarditis versus non ST-elevation RI 4. History of pustules on the lower extremities now healed with scars. 5. Thrombocytopenia immune mediated 6. Newly diagnosed systemic lupus initiated on steroid therapy This patient was seen in consultation by Dr. Chan at [facility] for a large pericardial effusion and left pleural effusion. He was transferred for further management. He has undergone thoracentesis and pericardial window procedure. Blood pressure is running 130-150 systolic. Heart rate is in the 70s. White count 12.6 hemoglobin 7.8 platelet count [id number]. Potassium 3.8 BUN 4 2 creatinine 1.1. The patient continues on dexamethasone furosemide 20 mg daily losartan 100 mg daily metoprolol succinate 12.5 mg daily. [place] [id number] we will consider whether or not to add aspirin 81 mg daily at the time of discharge. Increase metoprolol succinate today to 25 mg daily. The patient will require outpatient screening for coronary artery disease and reassessment of ejection fraction in 90 days. Spironolactone for additional blood pressure control and treatment of LV dysfunction. SANDHYA CARTAGENA MD May 03, 2025 08:46
[2025-05-03] MEDS: SPIRONOLACTONE 25 MG TAB PO SCH (09:53)
[2025-05-03] MEDS: PoTASSium chloRIDE 20MEQ ER 20 MEQ ERTAB PO PRN (09:54)
--- NOTE | 2025-05-03 11:35 | PN ---
[facility] PROGRESS NOTE Date Patient Seen: May 03, 2025 Time of Visit: 11:33 Supervising Physician: Dillon Maldonado MD Primary Care Physician: Tramaine Wilson MD Outpatient Specialists: [ ] Inpatient Consults: DR Lewis, DR Maldonado, DR Houston, DR Carranza PROBLEM LIST: Large pericardial effusion with early signs of tamponade, POA S/P Pericardial window on 04/28/25 Acute on chronic HFrEF w/ EF 30-35% POA Systemic lupus erythematosus , acute flare with multiorgan involvement NSTEMI POA s/p thoracentesis removal 950 ml ( 04/27/25) at [facility] Anasarca lower extremity POA 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 BLE ulcers Poor dentition INTERVAL HISTORY: Pericadial drained removed yesterday per CV surgery orders, Pt tolerated well. Pt awake alert and oriented x 3. He is hemodynamically stable. as per RN no major overnight events.He is breathing easily and unlabored, He is pending a 6 min walk. Chest XR with bila pleural effusions. Pt asymptomatic at this time so no lola cation for thoracentesis. We will continue with diuresing and following cardiology recommendations. REVIEW OF SYSTEMS: General: No malaise or fever. Neurological: No fainting episodes or seizures. HEENT: No nasal congestion or nasal secretion. Respiratory: No cough, shortness of breath, or wheezing Cardiac: No chest pain or palpitations. Gastrointestinal: No vomiting or diarrhea. Genitourinary: No dysuria hematuria. Skin: No rashes or lesions. Hematological: No bruises or bleeding. Musculoskeletal: No joint pains or arthralgias. Psychiatric: No depression or panic attacks. PHYSICAL EXAM: GENERAL: alert, weak, awake oriented x 3 HEENT: EOMI, Sclera non icteric, moist mucosa poor dentition NECK: Supple, no JVD, trachea midline LUNGS: Clear breath sounds bilaterally. No wheezes pericardial drain. HEART: Regular rate and rhythm. Normal S1 and S2, without murmurs , pericardial window drained ABD: Abdomen soft, nontender. Bowel sounds present EXT: No clubbing cyanosis or edema NEURO: Alert and oriented to person, follows commands Vital Signs (last 8hr) Date Time Temp Pulse Resp B/P (MAP) Pulse Ox O2 Delivery O2 Flow Rate FiO2 05/03/25 11:18 86 18 05/03/25 10:48 90 20 21 130 25 21 05/03/25 08:30 98 Room Air* 0 21 05/03/25 07:52 97.5 68 16 150/90 97 Room Air 05/03/25 06:41 70 18 05/03/25 06:41 70 18 N/A Room Air 21 LABS: Hematology Labs: Test 05/03/25 03:47 Range/Units White Blood Count 12.6 H 4.8-10.8 K/uL Red Blood Count 2.68 L 4.50-6.20 MIL/uL Hemoglobin 7.8 L 14.0-18.0 g/dL Hematocrit 26.8 L 42-54 % Mean Corpuscular Volume 100.0 H 79-99 fL Mean Corpuscular Hemoglobin 29.1 27.0-33.0 pg Mean Corpuscular Hemoglobin Concent 29.1 L 32.0-36.0 g/dL Red Cell Distribution Width 18.3 H 11.0-15.5 % Platelet Count 79 L 130-400 K/uL Mean Platelet Volume 7.5-10.5 fL Immature Granulocyte % (Auto) 1.0 0-1 % Neutrophils (%) (Auto) 80.9 H 40.0-77.0 % Lymphocytes (%) (Auto) 14.8 L 21.0-51.0 % Monocytes (%) (Auto) 3.2 3.0-13.0 % Eosinophils (%) (Auto) 0.0 0.0-8.0 % Basophils (%) (Auto) 0.1 0.0-5.0 % Neutrophils # (Auto) 10.2 H 1.8-7.7 K/uL Lymphocytes # (Auto) 1.9 1.0-4.8 K/uL Monocytes # (Auto) 0.4 0.1-1.0 K/uL Eosinophils # (Auto) 0.00 0.00-0.70 K/uL Basophils # (Auto) 0.01 0.00-0.20 K/uL Absolute Immature Granulocyte (auto 0.13 0-1 K/uL Nucleated Red Blood Cells 0.2 H 0.0-0.19 % Chemistry Labs: Test 05/03/25 11:23 05/03/25 03:47 05/01/25 16:09 Range/Units Whole Blood Glucose 137 H 70-110 MG/DL Sodium Level 136 136-145 mmol/L Potassium Level 3.8 3.5-5.1 mmol/L Chloride Level 102 101-111 mmol/L Carbon Dioxide Level 27 21-32 mmol/L Blood Urea Nitrogen 42 H 7-18 mg/dL Creatinine 1.1 0.5-1.3 mg/dL Glomerular Filtration Rate Calc 85 >90 mL/min Random Glucose 135 H 70-105 mg/dL Total Calcium 7.5 L 8.5-10.1 mg/dL Magnesium Level 1.90 1.80-2.40 mg/dL Total Bilirubin 0.3 0.2-1.0 mg/dL Aspartate Amino Transf (AST/SGOT) 55 H 10-37 U/L Alanine Aminotransferase (ALT/SGPT) 40 12-78 U/L Alkaline Phosphatase 184 H 50-136 U/L Total Protein 6.2 6.0-8.3 g/dL Albumin 1.5 L 3.5-5.0 g/dL Bedside Glucose Comment Notified Nurse DIAGNOSTICS / RADIOLOGY RESULTS: [ ] PLAN Follow CXR Follow cardiology recommendations Follow Hematology recommendations Maintain O2 sats above 92% 6 min walk Diuretic switch to p.o. per Cardiology. No plans for left side thoracentesis at this time. Patient is in no respiratory distress. Currently at room air Monitor electrolytes and replace accordingly Cardiac monitoring Decadron per hematology recs pulmonary toileting IS q 1 HR Atrovent q6hrs and acapella NEURO: Minimize central acting medications as possible. Maintain fall precautions, adequate lighting during the day PULMONARY: Supplemental 02 as needed. Maintain aspiration precautions at all times CARDIOVASCULAR: Follow hemodynamics. Vital signs per facility protocol GI & NUTRITION: Continue with nutritional support. Continue stool softeners and laxatives as needed. KIDNEYS & ELECTROLYTES: Strict monitoring of intake, output and overall fluid balance. Avoid nephrotoxic medications to the extent possible. Medications to be dosed according to renal function. Monitor electrolytes and replace as needed ENDOCRINE: Maintain blood glucose between 100-180 at all times. Hypoglycemia protocol in place INFECTIOUS DISEASE: Trend temperature, WBC and procalcitonin level Follow cultures, deescalate antibiotics as soon as possible. Panculture if new onset fever ONCOLOGY/HEMATOLOGY/COAGULATION: Monitor for s/s of bleeding Monitor hemoglobin, coagulation studies as needed SKIN: Pressure ulcer prevention per facility protocol Specialty mattress ORTHO/REHAB: Continue PT/OT Prophylaxis: Continue GI and DVT prophylaxis Code Status: Full Resuscitation Disposition: TBD Other: ATTESTATION BY PHYSICIAN I have evaluated the patient chart, medical records, and spoke with appropriate staff. I reviewed the documentation, medical decision making, and treatment plan as noted by the mid-level provider above. I agree with the findings and plan of care. Dillon Maldonado MD, [facility] May 03, 2025 11:35
[2025-05-04] VITALS (9 sets, daily range): BP systolic 134–141; BP diastolic 72–88; PULSE 64–80; RESP 18; TEMP 97.9–98; O2SAT 98–100
--- NOTE | 2025-05-04 01:07 | HMCIMG ---
EXAM: CR Chest, 1 View CLINICAL HISTORY: Left pleural effusion COMPARISON: CR Chest dated 05/02/2025 at 11:58 EDT. FINDINGS: LUNGS: Interval progression of pulmonary vascular congestion with worsening pulmonary edema involving both interstitial and alveolar components. No focal consolidation identified. PLEURAL SPACES: Increased bilateral pleural effusions, left greater than right. Previously seen right-sided pleural drainage catheter has been removed. No pneumothorax detected. MEDIASTINUM: Mild cardiomegaly, unchanged. Postoperative mediastinal contours stable. BONES: No acute or aggressive osseous abnormality. IMPRESSION: * Interval progression of pulmonary vascular congestion and pulmonary edema involving both interstitial and alveolar components. * Increased bilateral pleural effusions, left greater than right. * Interval removal of right-sided pleural drainage catheter. * Stable mild cardiomegaly and postoperative changes. /[place]
[2025-05-04 04:20] LABS: IMMATURE GRANULOCYTE ABSOLUTE 0.13 K/uL (0-1); NUCLEATED RED BLOOD CELLS 0.0 % (0.0-0.19); PLATELET COUNT (AUTO) 79 K/uL (130-400); RED BLOOD CELL COUNT(AUTO) 2.70 MIL/uL (4.50-6.20); RED CELL DISTRIBUTION WIDTH 18.5 % (11.0-15.5); WHITE BLOOD COUNT (AUTO) 14.1 K/uL (4.8-10.8)
[2025-05-04 04:34] LABS: ASPARTATE AMINOTRANSFERASE 56.0 U/L (10-37); CREATININE 0.9 mg/dL (0.5-1.3); GLOMERULAR FILTR. RATE CALC 108.0 mL/min (>90); GLUCOSE,RANDOM 131.0 mg/dL (70-105); SODIUM SERUM 135.0 mmol/L (136-145); TOTAL PROTEIN, SERUM 6.1 g/dL (6.0-8.3); UREA NITROGEN, BLOOD 40.0 mg/dL (7-18)
[2025-05-04] MEDS ORDERED: PRED50TA2 PO (09:26)
[2025-05-04] MEDS ORDERED: LOSA-420 PO (09:26)
[2025-05-04] MEDS ORDERED: FURO20TA6 PO (09:26)
[2025-05-04] MEDS ORDERED: METO25TA3 PO (09:26)
[2025-05-04] MEDS ORDERED: PRED10TA3 PO (09:26)
[2025-05-04] MEDS ORDERED: PRED20TA3 PO (09:26)
--- NOTE | 2025-05-04 11:04 | DS ---
Discharge Summary Hospital Course Summary: Reason for Admission The patient is a 44-year-old male with a history of untreated systemic lupus erythematosus (SLE) and Sjogrens syndrome, transferred from [facility] for management of a large pericardial effusion with early tamponade physiology, acute on chronic heart failure, and multiorgan involvement. Hospital Course Initial Presentation and Workup: Presented with 46 weeks of progressive shortness of breath, bilateral lower extremity edema, and chest pain. Workup at referring facility revealed severe pericardial effusion, bilateral pleural effusions, and reduced LVEF (2535%) with global hypokinesis. Laboratory findings included anemia, thrombocytopenia, elevated troponin, hypoalbuminemia, and evidence of active SLE (positive ORI, anti-Titus, low C3/C4, positive anti-SS-A). ICU Admission and Early Management: Admitted to ICU for close monitoring and management of early tamponade physiology. Underwent left-sided thoracentesis (950 mL removed) prior to transfer. Initiated on supplemental oxygen, IV fluids, and broad supportive care (DVT/GI prophylaxis, aspiration precautions, nutritional support). High-dose IV dexamethasone started for SLE flare with multiorgan involvement, per hematology recommendations. Transfusion thresholds set for Hgb <7 g/dL and platelets <40,000. Cardiac and Surgical Interventions: Echocardiogram confirmed large circumferential pericardial effusion with early right atrial and ventricular collapse, LVEF 3035%. On 04/28/25, underwent pericardial window and pericardial tissue biopsy by cardiothoracic surgery. Large volume of serous pericardial fluid evacuated; EUGENIO drain placed. Postoperatively, transferred to ICU, hemodynamically stable, with ongoing pericardial drainage. Chest tube placed for left pleural effusion; output monitored closely. Medical Management: Heart failure managed with IV then oral diuretics (furosemide), low-dose beta seth (metoprolol succinate), and transition from lisinopril to losartan due to cough. Blood pressure and volume status closely monitored; losartan titrated up to 100 mg daily for BP control. Initiated on IV iron, folic acid, and vitamin B12 for autoimmune hemolytic anemia and nutritional deficiencies. Thrombocytopenia and anemia monitored; no platelet transfusion required as counts remained >50,000. Statin therapy (atorvastatin) added for secondary prevention in the setting of NSTEMI vs. myocarditis. Avoided aspirin and clopidogrel during acute phase due to thrombocytopenia and recent pericardial intervention. Complications and Additional Findings: Persistent hypoalbuminemia and protein-calorie malnutrition addressed with nutritional support. Moderate ascites and hepatosplenomegaly noted on imaging; no acute abdominal pathology. 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 Generalized lymphadenopathy and rouleaux formation on peripheral smear; further workup (SPEP/UPEP, free light chains) pending. Clinical Course and Response: Patient remained hemodynamically stable postoperatively, with gradual improvement in respiratory status and peripheral edema. Pericardial and pleural drains removed as output decreased and respiratory status improved. Transitioned from ICU to PCCU as clinical status stabilized. Physical therapy initiated; patient able to ambulate with some exertional tachycardia but no significant dyspnea or chest pain. No new infectious complications; afebrile throughout hospitalization. Discharge planning included close outpatient follow-up with cardiology, rheumatology, and hematology. Discharge Condition Alert, oriented, and hemodynamically stable. Off supplemental oxygen, saturating well on room air. No active chest pain, shortness of breath, or bleeding. Mild residual lower extremity edema, improved from admission. Ambulating with physical therapy. Discharge Medications (as of last progress note): Dexamethasone IV (to be transitioned to oral prednisone taper: 50 mg daily x1 week, then taper by 10 mg weekly) Furosemide 20 mg daily PO Losartan 100 mg daily PO Metoprolol succinate 25 mg daily PO Atorvastatin (dose per cardiology) Iron sucrose IV (completed inpatient; continue oral iron as needed) Folic acid 1 mg daily PO Vitamin B12 1000 mcg daily PO Potassium and magnesium supplementation as needed Wound care and nutritional support Electro Mechanical Assembler(s): Dr. Thurston- cardio Dr Matthew- [facility]- critical care/pulmo Procedure(s): OPERATIVE REPORT Name: TAYO VENTURA Acct: [id number] MR: [id number] : 1980 Admit Date: 04/28/25 DANIEL MATTHEW MD [address] [id number] DATE OF PROCEDURE: 04/28/2025 TIME: 5:00 p.m. PREOPERATIVE DIAGNOSIS: Pericardial effusion. POSTOPERATIVE DIAGNOSIS: Pericardial effusion. PROCEDURES PERFORMED: 1. Pericardial window. 2. Pericardial tissue biopsy. SURGEON: Daniel Matthew MD, DIRECT CHILL CASTER: Jory Giron. DESCRIPTION OF PROCEDURE: Following anesthesia induction without any complication and appropriate preparation of the operative field, a 5 cm incision was made over the xiphoid process. The xiphoid process was then removed. The pericardium was identified. A longitudinal incision was made with a 15 blade. A large amount of pericardial fluid was evacuated. Majority of it was serous. After that, a piece of pericardium was cut and sent to Pathology. Subsequently, we placed a [place] drain into the pericardial sac and exteriorized it through the skin. After that, the wound was closed with 2-0 Vicryl and 4-0 Monocryl suture. I was present throughout the entire operation. The patient tolerated the operation well and transferred to the Intensive Care Unit in stable condition. 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%) Secondary Diagnoses: Ischemic cardiomyopathy, severe 3-vessel CAD s/p CABG x4 (2010) Chronic kidney disease stage IIIa, acute on chronic renal failure Hyponatremia Supraventricular tachycardia, possible atrial flutter/tachycardia Type 2 diabetes mellitus Protein-calorie malnutrition Pressure ulcers: right AKA stump, coccyx, left great toe (DFU) Neurogenic bladder with chronic indwelling catheter UTI Anemia of chronic disease Obstructive sleep apnea PAD (left lower extremity) History of right arm DVT (completed anticoagulation) Osteosarcoma, 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 Larged Left pleural effusion s/p thoracentesis removal 950 ml ( 04/27/25) placed chest tube POA chest pain 05/02/2025 suspecting early tamponade physiology POA Anasarca lower extremity POA improving acute on Chronic anemia secondary to Lupus POA Thrombocytopenia secondary to Lupus POA electrolytes derangement: hypokalemia debilitated physical deconditioning POA severe protein calorie malnutrition POA chronic problems: autoimmune SLE Low C3 C4 Positive ORI, Anti-Titus Ab- tested 01/25/24 and secondary Sjogren syndrome Positive Anti SS-AAb Negative SS-B (01/27/24) bilateral lower extremity arterial ulcers PLAN: [ ] Admit:ICU transition to PCCU condition: guarded Status:Full code IVF: [employer] Manager, CV and critical Team hematology s/p Pericardial window, will follow CV post operative recommendation s/p thoracentesis ( large left plueral effusion) removed yesterday chest tube Ch est XR with left side pleural effusion no indication for thoracentesis at this time due to pt in no resp distress saturating 99% ay room air. Oxygen supplement to keep O2 sats above 92%, aspiration precautions head of the bed at [address] reyes started HIGH DOSE DEXAMETHSONE IV 40 MG DAILY will continue with IV iron Labs cbc, cmp, mag+ on going surveillance will monitor H/H and Platelets: transfuse to keep hgb above 7.0 and platelet above 40,0000; will monitor for acute bleeding. Oral supplements: IV iron, folic acid 1 mg and vitamin B12 1000 mcg daily Replace electrolytes as needed as per protocol to keep potassium above 4.0 magnesium 2.0. decubitus precaution: reposition every 2 hrs aggressive off loading: wound care consulted will follow recommendations. Supportive measures: DVT ppx, GI ppx PT services OOB to chair as tolerated all questions answered Supervising MD: Dr.Montes Bourne c/d This document was generated in part using voice recognition software, occasional wrong word or sound alike substitutions may have occurred due to the inherent limitations of voice recognition software. Read the chart carefully and recognize using context, where the substitutions have occurred. Although every effort was made to edit the content, foundation drill operator and typing errors may occur Discharge Instructions: Follow-Up and Recommendations Outpatient follow-up with cardiology for repeat echocardiogram and ischemic evaluation in 90 days. Rheumatology for ongoing SLE management and steroid taper. Hematology for monitoring of cytopenias and further workup of rouleaux formation. Wound care for lower extremity ulcers. Physical therapy for deconditioning. Monitor for signs of recurrent effusion, heart failure, infection, or bleeding. Continue DVT and GI prophylaxis as indicated. Home Medications: Reported Medications Benzocaine/Menthol (Cepacol Sore Throat Lozenge) 15 Mg-3.6 Mg Lozenge, 1 EACH MM Q1HR, BARRETT 04/28/25 Spironolactone (Spironolactone) 25 Mg Tablet, 1 TAB PO DAILY for 30 Days, #30 TAB 0 Refills 04/28/25 Silver Sulfadiazine (Silver Sulfadiazine) 1 % Cream..g., 1 APPL TP BID for 10 Days, #50 GM 0 Refills 04/28/25 Sacubitril/Valsartan (Entresto 24 mg-26 mg Tablet) 24 Mg-26 Mg Tablet, 1 TAB PO BID for 30 Days, #60 TAB 0 Refills 04/28/25 Hydroxychloroquine Sulfate (Hydroxychloroquine Sulfate) 200 Mg Tablet, 200 MG PO DAILY, TAB 04/28/25 Empagliflozin (Jardiance) 10 Mg Tablet, 1 TAB PO DAILY for 30 Days, #30 TAB 0 Refills 04/28/25 New Medications: Prednisone (Prednisone) 50 Mg Tablet 1 TAB PO DAILY for 7 Days, #7 TAB 0 Refills Prednisone (Prednisone) 20 Mg Tablet 40 MG PO DAILY, #14 TAB Prednisone (Prednisone) 10 Mg Tablet 30 MG PO DAILY, #21 TAB Prednisone (Prednisone) 20 Mg Tablet 1 TAB PO DAILY for 7 Days, #7 TAB 0 Refills Prednisone (Prednisone) 10 Mg Tablet 1 TAB PO DAILY for 7 Days, #7 TAB 0 Refills Furosemide (Lasix 20Mg Tab) 20 Mg Tablet 20 MG PO DAILY, #30 TAB 0 Refills Losartan Potassium (Cozaar) 100 Mg Tablet 100 MG PO DAILY, #30 TAB 0 Refills Metoprolol Succinate (Toprol Xl) 25 Mg Tab.er.24h 25 MG PO DAILY, #30 TAB 0 Refills Continued Medications: Benzocaine/Menthol (Cepacol Sore Throat Lozenge) 15 Mg-3.6 Mg Lozenge 1 EACH MM Q1HR, BARRETT Empagliflozin (Jardiance) 10 Mg Tablet 1 TAB PO DAILY for 30 Days, #30 TAB 0 Refills Hydroxychloroquine Sulfate (Hydroxychloroquine Sulfate) 200 Mg Tablet 200 MG PO DAILY, TAB Silver Sulfadiazine (Silver Sulfadiazine) 1 % Cream..g. 1 APPL TP BID for 10 Days, #50 GM 0 Refills Spironolactone (Spironolactone) 25 Mg Tablet 1 TAB PO DAILY for 30 Days, #30 TAB 0 Refills Discontinued Medications: Sacubitril/Valsartan (Entresto 24 mg-26 mg Tablet) 24 Mg-26 Mg Tablet 1 TAB PO BID for 30 Days, #60 TAB 0 Refills Time spent arranging discharge: 31-60 minutes ATTESTATION BY PHYSICIAN I have seen and examined the patient. I reviewed the documentation, medical decision making, and treatment plan as noted by the mid-level provider above. I agree with the findings and plan of care. PAXTON REYNOSO MD, JANICE B [facility] May 04, 2025 11:04
--- NOTE | 2025-05-04 11:39 | NUR ---
DISCHARGE HOME IV, ID BANDS, AND TELEPAK REMOVED. DISCHARGE INSTRUCTIONS GIVEN AND EXPLAINED TO PATIENT AND SPOUSE. SPOUSE RATHER MAKE THE FOLLOW APPOINTMENTS HERSELF. BELONGINGS PACKED AND TAKEN BY SPOUSE. PATIENT WHEELED DOWN TO PRIVATE CAR.
--- NOTE | 2025-05-04 12:49 | PN ---
[facility] PROGRESS NOTE Date Patient Seen: May 04, 2025 Time of Visit: 12:46 Supervising Physician: Dr Maldonado Primary Care Physician: Tramaine Wilson MD Outpatient Specialists: [ ] Inpatient Consults: DR Lewis, DR Maldonado, DR Houston, DR Carranza PROBLEM LIST: Large pericardial effusion with early signs of tamponade, POA S/P Pericardial window on 04/28/25 Acute on chronic HFrEF w/ EF 30-35% POA Systemic lupus erythematosus , acute flare with multiorgan involvement NSTEMI POA s/p thoracentesis removal 950 ml ( 04/27/25) at [facility] Anasarca lower extremity POA 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 BLE ulcers Poor dentition INTERVAL HISTORY: Patient seen and examined, all labs and imaging have been reviewed, patient is awake alert and oriented, patient was pending a 6 minute walk, walked over 200 ft. No drops in saturations. No thoracentesis planned No acute events overnight Afebrile Vital signs are stable Cleared by Cardiothoracic Plan: Continue on Atrovent Patient doing well, patient cleared by pulmonology for discharge. Pulmonology will sign off, thank you for allowing us to participate in the care of your patient Total patient care time spent: 39 minutes time excludes any procedures or educational time REVIEW OF SYSTEMS: General: No malaise or fever. Neurological: No fainting episodes or seizures. HEENT: No nasal congestion or nasal secretion. Respiratory: No cough, shortness of breath, or wheezing Cardiac: No chest pain or palpitations. Gastrointestinal: No vomiting or diarrhea. Genitourinary: No dysuria hematuria. Skin: No rashes or lesions. Hematological: No bruises or bleeding. Musculoskeletal: No joint pains or arthralgias. Psychiatric: No depression or panic attacks. PHYSICAL EXAM: GENERAL: alert, weak, awake oriented x 3 HEENT: EOMI, Sclera non icteric, moist mucosa poor dentition NECK: Supple, no JVD, trachea midline LUNGS: Clear breath sounds bilaterally. No wheezes pericardial drain. HEART: Regular rate and rhythm. Normal S1 and S2, without murmurs , pericardial window drained ABD: Abdomen soft, nontender. Bowel sounds present EXT: No clubbing cyanosis or edema NEURO: Alert and oriented to person, follows commands Vital Signs (last 8hr) Date Time Temp Pulse Resp B/P (MAP) Pulse Ox O2 Delivery O2 Flow Rate FiO2 05/04/25 11:18 80 18 N/A Room Air 05/04/25 11:16 80 18 05/04/25 08:00 99 Room Air* 0 05/04/25 07:57 97.9 68 18 141/72 99 Room Air 05/04/25 06:48 70 18 N/A Room Air 05/04/25 06:46 68 18 LABS: Hematology Labs: Test 05/04/25 03:54 Range/Units White Blood Count 14.1 H 4.8-10.8 K/uL Red Blood Count 2.70 L 4.50-6.20 MIL/uL Hemoglobin 8.1 L 14.0-18.0 g/dL Hematocrit 26.6 L 42-54 % Mean Corpuscular Volume 98.5 79-99 fL Mean Corpuscular Hemoglobin 30.0 27.0-33.0 pg Mean Corpuscular Hemoglobin Concent 30.5 L 32.0-36.0 g/dL Red Cell Distribution Width 18.5 H 11.0-15.5 % Platelet Count 79 L 130-400 K/uL Mean Platelet Volume 7.5-10.5 fL Immature Granulocyte % (Auto) 0.9 0-1 % Neutrophils (%) (Auto) 82.2 H 40.0-77.0 % Lymphocytes (%) (Auto) 12.7 L 21.0-51.0 % Monocytes (%) (Auto) 4.1 3.0-13.0 % Eosinophils (%) (Auto) 0.0 0.0-8.0 % Basophils (%) (Auto) 0.1 0.0-5.0 % Neutrophils # (Auto) 11.6 H 1.8-7.7 K/uL Lymphocytes # (Auto) 1.8 1.0-4.8 K/uL Monocytes # (Auto) 0.6 0.1-1.0 K/uL Eosinophils # (Auto) 0.00 0.00-0.70 K/uL Basophils # (Auto) 0.01 0.00-0.20 K/uL Absolute Immature Granulocyte (auto 0.13 0-1 K/uL Nucleated Red Blood Cells 0.0 0.0-0.19 % Chemistry Labs: Test 05/04/25 03:54 05/03/25 11:23 Range/Units Sodium Level 135 L 136-145 mmol/L Potassium Level 4.3 3.5-5.1 mmol/L Chloride Level 105 101-111 mmol/L Carbon Dioxide Level 26 21-32 mmol/L Blood Urea Nitrogen 40 H 7-18 mg/dL Creatinine 0.9 0.5-1.3 mg/dL Glomerular Filtration Rate Calc 108 >90 mL/min Random Glucose 131 H 70-105 mg/dL Total Calcium 7.6 L 8.5-10.1 mg/dL Magnesium Level 2.10 1.80-2.40 mg/dL Total Bilirubin 0.2 0.2-1.0 mg/dL Aspartate Amino Transf (AST/SGOT) 56 H 10-37 U/L Alanine Aminotransferase (ALT/SGPT) 51 12-78 U/L Alkaline Phosphatase 184 H 50-136 U/L Total Protein 6.1 6.0-8.3 g/dL Albumin 1.5 L 3.5-5.0 g/dL Whole Blood Glucose 137 H 70-110 MG/DL DIAGNOSTICS / RADIOLOGY RESULTS: [ ] PLAN NEURO: Minimize central acting medications as possible. Maintain fall precautions, adequate lighting during the day PULMONARY: Supplemental 02 as needed. Maintain aspiration precautions at all times CARDIOVASCULAR: Follow hemodynamics. Vital signs per facility protocol GI & NUTRITION: Continue with nutritional support. Continue stool softeners and laxatives as needed. KIDNEYS & ELECTROLYTES: Strict monitoring of intake, output and overall fluid balance. Avoid nephrotoxic medications to the extent possible. Medications to be dosed according to renal function. Monitor electrolytes and replace as needed ENDOCRINE: Maintain blood glucose between 100-180 at all times. Hypoglycemia protocol in place INFECTIOUS DISEASE: Trend temperature, WBC and procalcitonin level Follow cultures, deescalate antibiotics as soon as possible. Panculture if new onset fever ONCOLOGY/HEMATOLOGY/COAGULATION: Monitor for s/s of bleeding Monitor hemoglobin, coagulation studies as needed SKIN: Pressure ulcer prevention per facility protocol Specialty mattress ORTHO/REHAB: Continue PT/OT Prophylaxis: Continue GI and DVT prophylaxis Code Status: Full Resuscitation Disposition: TBD Other: SANDHYA RUANO PAC May 04, 2025 12:49
--- NOTE | 2025-05-04 22:26 | HMCIMG ---
EXAM: CR Chest, 1 View. CLINICAL HISTORY: Left pleural effusion. COMPARISON: CR ??? Chest 1 View dated 05/03/25, 05:23 EST. FINDINGS: LUNGS: Pulmonary vascular congestion with interstitial and alveolar components of pulmonary edema, overall stable compared to the prior study. No new focal consolidation or mass. PLEURAL SPACES: Stable [id number] bilateral pleural effusions, left greater than right. No pneumothorax. MEDIASTINUM: Cardiomediastinal silhouette mildly enlarged, stable from prior. BONES: No acute osseous abnormality. IMPRESSION: * Stable pulmonary vascular congestion and pulmonary edema with interstitial and alveolar components. * Stable [id number] pleural effusions, left greater than right. * No pneumothorax or new pulmonary infiltrate. Comparison: No significant interval change since prior examination dated 05/03/25. /[place]
== END 2025-05-04 12:00 | disposition home or self-care (01) | DRG 270 ==
LOC: EDBD → 2CV 06:59 → 2AH 04-30 13:43
PROVIDERS: ADMIT Internal Medicine; ATTEND Internal Medicine
PROC: 30233N1 Transfusion of Nonautologous Red Blood Cells into Peripheral Vein, Percutaneous Approach (ICD-10-PCS; 2025-04-28)
PROC: 0W9D0ZZ Drainage of Pericardial Cavity, Open Approach (ICD-10-PCS; principal; 2025-04-28 16:31)
DX: I31.39 Other pericardial effusion (noninflammatory) (principal); E43 Unspecified severe protein-calorie malnutrition; I21.4 Non-ST elevation (NSTEMI) myocardial infarction; J96.01 Acute respiratory failure with hypoxia; I50.43 Acute on chronic combined systolic (congestive) and diastolic (congestive) heart failure; I21.A1 Myocardial infarction type 2; I31.4 Cardiac tamponade; L89.150 Pressure ulcer of sacral region, unstageable; N39.0 Urinary tract infection, site not specified; D69.59 Other secondary thrombocytopenia; I13.0 Hypertensive heart and chronic kidney disease with heart failure and stage 1 through stage 4 chronic kidney disease, or unspecified chronic kidney disease; D64.9 Anemia, unspecified; M32.9 Systemic lupus erythematosus, unspecified; N18.31 Chronic kidney disease, stage 3a; I34.0 Nonrheumatic mitral (valve) insufficiency; D59.10 Autoimmune hemolytic anemia, unspecified; D62 Acute posthemorrhagic anemia; I47.10 Supraventricular tachycardia, unspecified; L97.918 Non-pressure chronic ulcer of unspecified part of right lower leg with other specified severity; L97.928 Non-pressure chronic ulcer of unspecified part of left lower leg with other specified severity; R18.8 Other ascites; M35.00 Sjogren syndrome, unspecified; D63.8 Anemia in other chronic diseases classified elsewhere; E78.5 Hyperlipidemia, unspecified; E87.6 Hypokalemia; I25.10 Atherosclerotic heart disease of native coronary artery without angina pectoris; G47.33 Obstructive sleep apnea (adult) (pediatric); I35.1 Nonrheumatic aortic (valve) insufficiency; I25.5 Ischemic cardiomyopathy; E88.09 Other disorders of plasma-protein metabolism, not elsewhere classified; N31.9 Neuromuscular dysfunction of bladder, unspecified; Z85.830 Personal history of malignant neoplasm of bone; Z79.899 Other long term (current) drug therapy; Z86.718 Personal history of other venous thrombosis and embolism; Z89.611 Acquired absence of right leg above knee; Z92.3 Personal history of irradiation; Z95.1 Presence of aortocoronary bypass graft
CPT/HCPCS: 36415; 36430; 71045; 71250; 74176; 80048; 80053; 82150; 82945; 82948; 83521; 83540; 83550; 83615; 83690; 83735; 83880; 83986; 84145; 84157; 84443; 84484; 85025; 85027; 85610; 85651; 85730; 86038; 86215; 86235; 86334; 86431; 86701; 86850; 86880; 86900; 86901; 87071; 87116; 87205; 87206; 87210; 87390; 88305; 89051; 93005; 93306; 93356; 94640; 94664; 94667; 94668; 94760; A4450; A7048; C1729; G0378; J0169; J0330; J0690; J1100; J1756; J1938; J2003; J2405; J2704; J2710; J3010; J3475; J3480; J3490; J7030; P9034; A4649; A4930; J1308